=== PATIENT | male | born 1960 | race Caucasian/White ===

== ENCOUNTER 2019-07-09 10:26 | Inpatient (IN) | payer MEDICARE ==
[2019-07-09] MEDS ORDERED: Naloxone HCl 0.4 mg/ml Vial ONE (10:47)
[2019-07-09] MEDS ORDERED: cloNIDine 0.1 MG TAB ONE (10:47)
[2019-07-09] MEDS ORDERED: Cefepime 1 GM VIAL ONE (10:47)
[2019-07-09 10:48] LABS: Analyzer IN Cardio ER; Base Excess (BEa) -3.1 mEq/L (-2.0 to +3.0); Carboxyhemoglobin (COHb) 0.8 gm% (0.0-3.0); Hemoglobin (Hb) 13.3 g/dL (14.0-18.0); O2 Tension (PaO2) 86.7 mmHg (80.0-100.0); Potassium - ABG Lab 5.65 mmol/L (3.70-5.30); pH, Arterial 7.18 (7.35-7.45)
[2019-07-09 10:49] LABS: CO2 Tension 74.6 mmHg (35.0-45.0); Puncture Site RRA
[2019-07-09 11:05] LABS: #Lymphocytes 0.9 thou/uL (1.20-3.40); #Monocytes 0.6 thou/uL (0.11-0.59); #Neutrophils 11.4 thou/uL (1.40-6.50); %Basophils 0.2 % (0.0-1.0); %Eosinophils 0.3 % (0.0-10.0); %Lymphocytes 6.8 % (21.0-51.0); %Monocytes 4.8 % (0.0-10.0); %Neutrophils 87.8 % (42.0-75.0); Hemoglobin 12.5 g/dL (14.0-18.0); Mean Corpuscular HGB CONC 30.9 g/dL (32.0-36.0); Mean Corpuscular Volume 90.7 fL (78.0-98.0); Mean Platelet Volume 6.8 fL (7.4-10.4); Platelet Count 199 thou/uL (130-400); RBC Distribution Width 14.7 % (11.5-14.5); Red Blood Cell (RBC) Count 4.47 mill/uL (4.70-6.10); White Blood Cell (WBC) Count 12.9 thou/uL (4.8-10.8)
[2019-07-09] MEDS ORDERED: Succinylcholine Chloride 20 MG/ML 10 ml SYRINGE FS ONE (11:18)
[2019-07-09] MEDS ORDERED: Propofol 1,000 MG/100 ML VIAL IV ONE (11:28)
--- NOTE | 2019-07-09 11:31 | RAD ---
XR Chest 1 View Portable HISTORY: Dyspnea COMPARISON: 07/01/2012 FINDINGS: The heart is enlarged. There is elevation the right hemidiaphragm. There is mild infiltrate versus atelectatic changes in the right lung base. There is mild pulmonary vascular congestion. No pneumothoraces or large effusions are seen.
[2019-07-09 11:34] LABS: Amphetamine Detected (NotDetected); Barbiturates Screen Not Detected (NotDetected); Benzodiazepine Screen Not Detected (NotDetected); Cocaine Metabolite Screen Not Detected (NotDetected); Medtox Reader # READER 1; Methadone Not Detected (NotDetected); Methamphetamine Detected (NotDetected); Opiate Screen Not Detected (NotDetected); Oxycodone Screen Not Detected (NotDetected); Phencyclidine (PCP) Not Detected (NotDetected); THC/Cannabinoid Screen Not Detected (NotDetected); Tricyclic Screen Not Detected (NotDetected)
[2019-07-09 11:35] LABS: Medtox Control Line Valid? VALID (VALID)
[2019-07-09] MEDS ORDERED: Sodium Bicarb 50 MEQ/50 ML VIAL ONE (11:37)
[2019-07-09] MEDS ORDERED: Norepinephrine 8 MG/0.9% NS 250 ML ONE (11:41)
[2019-07-09 11:42] LABS: ALT (SGPT) 1527 U/L (8-55); AST (SGOT) 1657 U/L (5-34); Acetaminophen Less than 6.0 mcg/mL (10.0-30.0); Albumin 3.4 g/dL (3.5-5.0); Alcohol Less than 10 mg/dL (Less than 10); Alkaline Phosphatase 124 U/L (40-110); Anion Gap 21 mmol/L (10-20); BUN (Urea Nitrogen) 29 mg/dL (8.4-25.7); Bilirubin, Total 0.8 mg/dL (0.2-1.2); CK (CPK) 313 U/L (30-200); Calc. Creatinine Clearance 0 mL/min (70-130); Carbon Dioxide 22 mmol/L (22-29); Chloride 97 mmol/L (98-107); Estimated GFR-MDRD 46; Globulin 4.8 g/dL (2.4-3.5); Glucose 76 mg/dL (70-105); Magnesium 2.4 mg/dL (1.6-2.6); Potassium 5.9 mmol/L (3.5-5.1); Protein, Total 8.2 g/dL (6.0-8.3); Salicylate Less than 8.0 mg/dL (15.0-30.0); Sodium 134 mmol/L (136-145)
[2019-07-09] MEDS ORDERED: Calcium Chloride 1 GM/10 ML Abboject SYRINGE ONE (11:51)
[2019-07-09 11:53] LABS: Bacteria/HPF 4+ HPF (None Seen); Bilirubin Negative (Negative); Blood, Urine 2+ (Negative); Clarity Extra Turbid (Clear); Glucose, Urine (Dipstick) Normal (Negative); Leukocyte 75 Leu/uL (Negative); Nitrite Negative (Negative); Protein, Urine (Dipstick) 100 mg/dL (Neg-Trace); Squamous Epithelial 0-3 HPF (0-3); WBC/HPF 21-50 HPF (0-3)
[2019-07-09 11:56] LABS: CKMB 2.5 ng/mL (0-6.6)
[2019-07-09 12:16] LABS: Actual Bicarbonate (HCO3a) 27.4 mEq/L (22-28); Analyzer IN Cardio ER; Base Excess (BEa) -0.6 mEq/L (-2.0 to +3.0); Calcium, Ionized 1.02 mmol/L (1.12-1.30); Carboxyhemoglobin (COHb) 0.4 gm% (0.0-3.0); Hemoglobin (Hb) 12.4 g/dL (14.0-18.0); O2 Tension (PaO2) 81.2 mmHg (80.0-100.0); Potassium - ABG Lab 5.23 mmol/L (3.70-5.30); pH, Arterial 7.27 (7.35-7.45)
[2019-07-09 12:22] LABS: CO2 Tension 60.9 mmHg (35.0-45.0)
[2019-07-09 12:23] LABS: Puncture Site RRA
[2019-07-09 12:24] LABS: ALV-art Gradient 413.075 (0-20)
--- NOTE | 2019-07-09 12:48 | RAD ---
EXAM: Single view of the chest HISTORY: Chest pain and shortness of breath COMPARISON: 07/09/2019 FINDINGS: Single view of the chest shows a normal sized cardiomediastinal silhouette. An endotrachea l tube is seen with its tip just below the lower border of the clavicles. There may also be an NG tube and a left IJ central venous catheter. These are difficult to visualize. Bilateral perihilar opa cities are seen. The bones are unremarkable. IMPRESSION: Stable exam status post intubation.
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
[2019-07-09] MEDS ORDERED: Ventilator Sedation Protocol 1 EACH FS SCH ×2 (13:30→13:45)
[2019-07-09] MEDS ORDERED: Morphine 2 MG/ML SYRINGE SLOW IVP PRN (13:53)
[2019-07-09] MEDS ORDERED: Lorazepam 2 MG/ML VIAL ONE (13:53)
[2019-07-09] MEDS ORDERED: Propofol BOLUS 1,000 MG/100 ML VIAL IV PRN (13:53)
[2019-07-09] MEDS ORDERED: Lorazepam 2 MG/ML VIAL SLOW IVP PRN (13:53)
[2019-07-09] MEDS ORDERED: Fentanyl BOLUS 250 ML IVPB PRN (13:53)
[2019-07-09] MEDS: Piperacillin/Tazobactam 3.375 GM in Sodium Chloride 0.9% 100 ML IVPB SCH ×2 (14:25→19:55)
--- NOTE | 2019-07-09 14:36 | PDOC.HHP ---
Hospitalist HPI - History of Present Illness AMS History of Present Illness: Mr. Reyes is a 59 y/o gentleman with PMH of morbid obesity, unknown other medical history, who presents with altered mental status and respiratory distress. The majority of the history was obtained from the medical personnel and the chart. Apparently was placed on CPAP in the ambulance due to respiratory distress. By the time he arrived in the emergency room his Alyson Coma Scale was reportedly a 4, he had a ABG which demonstrated pH of 7.18 PCO2 of 74.6 PO2 of 86.7 and lactic acid of 5.2. Patient was initially placed on BiPAP but failed response to therapy with continued tachypnea, was intubated and mechanically ventilated. Patient is reportedly over 500 pounds and unable to fit in CT scanner, a chest x-ray was obtained which demonstrated a infiltrate in the right lung base. Additionally had elevated AST of 1657 and ALT of 1527 and ALP of 124. Troponin on admission was 1.195. Hospitalist ROS - Review of Systems ROS unobtainable: due to endotracheal tube - Medication Medications: Medication Instructions Recorded Confirmed Type Benazepril HCl [Lotensin] 10 mg PO DAILY 10/05/17 History Cyanocobalamin (Vitamin B-12) 1,000 mcg PO DAILY 10/05/17 History [Vitamin B-12] Furosemide [Lasix] 20 mg PO DAILY 10/05/17 History Potassium Gluconate [Potassium] 99 mg PO DAILY 10/05/17 History Hospitalist History - Past Medical History Source: RN notes reviewed Cardiac: reports: no pertinent history Pulmonary: reports: no pertinent history, Other TREASURY AGENT: reports: no pertinent history Gastrointestinal: reports: no pertinent history Heme/Onc: reports: no pertinent history, Anemia NOS Musculoskeletal: reports: no pertinent history Rheumatologic: reports: no pertinent history Infectious Disease: reports: no pertinent history ENT: reports: no pertinent history Renal/: reports: no pertinent history - Past Surgical History Past Surgical History: reports: no pertinent history - Family History Family History: reports: no pertinent history - Social History Smoking Status: Smoker, status unknown Alcohol: reports: None Drugs: reports: Other Living Situation: Alone Other Social History: Unknown social history - Exam General - other findings: Intubated, sedated Eye: PERRL, anicteric sclera ENT: normocephalic atraumatic Neck: supple, no JVD, no lymphadenopathy Heart: RRR, no murmur, no gallops Respiratory: no wheezes, normal chest expansion, rhonchi Gastrointestinal: soft, non-tender, normal bowel sounds Gastrointestinal - other findings: Massive abdomen, protuberant Extremities: no cyanosis, no clubbing Skin - other findings: ulcer on right posterior aspect of inner thigh, 3cm by 3cm, sacral ulcer Musculoskeletal: no muscle wasting, generalized weakness Psychiatric: not oriented Hospitalist Results - Labs Result Diagrams: 07/09/19 10:49 07/09/19 20:05 Lab results: WBC 12.9 thou/uL (4.8-10.8) H 07/09/19 10:49 Hgb 12.5 g/dL (14.0-18.0) L 07/09/19 10:49 Hct 40.6 % (42.0-52.0) L 07/09/19 10:49 MCV 90.7 fL (78.0-98.0) 07/09/19 10:49 Plt Count 199 thou/uL (130-400) 07/09/19 10:49 Neutrophils % 87.8 % (42.0-75.0) H 07/09/19 10:49 ABG pH 7.27 (7.35-7.45) L 07/09/19 12:10 ABG pCO2 60.9 mmHg (35.0-45.0) H* 07/09/19 12:10 ABG pO2 81.2 mmHg (80.0-100.0) 07/09/19 12:10 Sodium 134 mmol/L (136-145) L 07/09/19 10:49 Potassium 5.9 mmol/L (3.5-5.1) H 07/09/19 10:49 Chloride 97 mmol/L (98-107) L 07/09/19 10:49 Carbon Dioxide 22 mmol/L (22-29) 07/09/19 10:49 BUN 29 mg/dL (8.4-25.7) H 07/09/19 10:49 Creatinine 1.55 mg/dL (0.7-1.3) H 07/09/19 10:49 Glucose 76 mg/dL (70-105) 07/09/19 10:49 Lactic Acid 5.2 mmol/L (0.5-2.2) H* 07/09/19 10:49 Calcium 8.0 mg/dL (7.8-10.44) 07/09/19 10:49 Total Bilirubin 0.8 mg/dL (0.2-1.2) 07/09/19 10:49 AST 1657 U/L (5-34) H 07/09/19 10:49 ALT 1527 U/L (8-55) H 07/09/19 10:49 Alkaline Phosphatase 124 U/L (40-110) H 07/09/19 10:49 Creatine Kinase 313 U/L (30-200) H 07/09/19 10:49 CK-MB (CK-2) 2.5 ng/mL (0-6.6) 07/09/19 10:49 Troponin I 0.195 ng/mL (< 0.028) H 07/09/19 10:49 B-Natriuretic Peptide 87.8 pg/mL (0-100) 07/09/19 10:49 Serum Total Protein 8.2 g/dL (6.0-8.3) 07/09/19 10:49 Albumin 3.4 g/dL (3.5-5.0) L 07/09/19 10:49 Urine Ketones Negative mg/dL (Negative) 07/09/19 11:01 Urine Blood 2+ (Negative) A 07/09/19 11: Urine Nitrite Negative (Negative) 07/09/19 11:01 Ur Leukocyte Esterase 75 Yolette/uL (Negative) A 07/09/19 11:01 Urine RBC 7-10 HPF (0-3) A 07/09/19 11:01 Urine WBC 21-50 HPF (0-3) A 07/09/19 11:01 Ur Squamous Epith Cells 0-3 HPF (0-3) 07/09/19 11:01 Urine Bacteria 4+ HPF (None Seen) A 07/09/19 11:01 Additional comment: VITAL SIGNS MonJul 09, 2019 10:36 LINUS Proctor Morgan BP: 178/113, MAP: 134, Pulse: 91, Resp: 25, Pain: UTD, Time: 07/09/2019 10:36. - EKG Interpretation EK lead EKG shows normal sinus rhythm, Rate (beats per minute): 91, Interpretation: normal EKG, Conduction normal, ST segments normal, T waves normal, Rowland normal, Clinical impression: Normal EKG. - Radiology Interpretation Chest x-ray Status: report reviewed by me Hospitalist H&P A/P - Problem (1) Acute respiratory failure with hypoxia and hypercapnia Code(s): J96.01 - ACUTE RESPIRATORY FAILURE WITH HYPOXIA; J96.02 - ACUTE RESPIRATORY FAILURE WITH HYPERCAPNIA Status: Acute (2) Severe sepsis with septic shock Code(s): A41.9 - SEPSIS, UNSPECIFIED ORGANISM; R65.21 - SEVERE SEPSIS WITH SEPTIC SHOCK Status: Acute (3) Community acquired pneumonia Code(s): J18.9 - PNEUMONIA, UNSPECIFIED ORGANISM Status: Acute (4) Transaminitis Code(s): R74.0 - NONSPEC ELEV OF LEVELS OF TRANSAMNS & LACTIC ACID DEHYDRGNSE Status: Acute (5) Lactic acidosis Code(s): E87.2 - ACIDOSIS Status: Acute (6) Positive urine drug screen Code(s): R82.5 - ELEVATED URINE LEVELS OF DRUG/MEDS/BIOL SUBST Status: Acute (7) Acute kidney injury Code(s): N17.9 - ACUTE KIDNEY FAILURE, UNSPECIFIED Status: Acute - Plan Plan: Admit to CCU for further management of critical care Consult pulmonary for management vent management Vent sedation protocol initiated, continue sedation with propofol Work-up of septic shock, receicev early goal directed therapy of 3L bolus, patient unable to fit in CT scanner, will obtain a ultrasound of the abdomen as well as HIDA scan, and a soft tissue scan of a wound on the right leg Consult wound care Empiric vancomycin and Zosyn, obtain an echocardiogram for evaluation of shock, obtain cultures Continue NS at 100 mL/h, fluid challenge for RODNEY Continue Levophed Likely source of sepsis could be a pneumonia, however given elevated liver enzymes and prior gallbladder sludge noted on ultrasound report from a month ago , would like to evaluate the gallbladder, and soft tissue area on the leg which could be an abscess. DVT prophylaxis: Lovenox GI prophylaxis: Protonix CODE STATUS: Full code ACP: Unknown surrogate details, there is a [id number] but he was unavailable at the time Disposition: Continue treatment and management of shock, sepsis, respiratory failure. Critical care time spent with the patient greater than 45 minutes in management and planning of patient's critical illness
[2019-07-09 14:54] LABS: Lactic Acid 5.4 mmol/L (0.5-2.2)
[2019-07-09] MEDS: Propofol 1,000 MG/100 ML VIAL IV PRN ×2 (14:55→19:30)
[2019-07-09] MEDS: fentaNYL Citrate/PF 2,000 MCG in Sodium Chloride 0.9% 60 ML IV SCH (14:56)
[2019-07-09] MEDS: Sodium Chloride 0.9% 1,000 ML IV SCH ×2 (15:17→23:28)
--- NOTE | 2019-07-09 16:40 | ULT ---
EXAM: US Soft Tissue Other PROVIDED CLINICAL HISTORY: Posterior right leg ulcer, rule out abscess. COMPARISON: None FINDINGS: Limited sonographic evaluation of the left lower gluteal region was performed which is in region of p atient's wound. The provided history indicates that the area of ulceration is on the posterior right leg. However, the area of erythema is noted on the lower left gluteal region, this was the area which was imaged. There is no fluid collection or mass seen in region of concern in the subcutaneous soft tissues left lower gluteal region. A tubular anechoic structure is seen likely rela fei to a vessel. However, color-flow evaluation was not performed primarily related to difficulty in patient remaining in position for evaluation. IMPRESSION: No fluid collection or mass is seen in the region of the patient's area of concern at the level of ar ea of erythema posterior left gluteal region. Again, history indicates right, but area of concern was noted to be on the left according to team facilitator.
--- NOTE | 2019-07-09 16:44 | ULT ---
ABDOMINAL ULTRASOUND HISTORY: Abdominal pain. FINDINGS: Liver: Enlarged in craniocaudal dimensions measuring 19.7 cm. Portions of the liver are not well imag ed due to patient body habitus. No obvious hepatic lesion is seen on provided images. Gallbladder: Limited evaluation, but no definite gallbladder calculus is seen. Common duct: Common duct is normal in caliber measuring 0.4 cm in diameter. Pancreas: The limited visualized pancreas demonstrates a normal sonographic appearance. IVC: Limited visualized IVC has a normal sonographic appearance. Aorta: Portions of the abdominal aorta are not visualized, the visualized portions of the abdominal a frederic are normal in caliber. Spleen: Within normal limits. Kidneys: Limited evaluation, but the kidneys demonstrate a grossly normal sonographic appearance bila terally without evidence of hydronephrosis. The right kidney measures 12.8 cm in length, and the left kidney measures 11.3 cm in length. IMPRESSION: 1. Portions of the abdominal organs are not well seen due to difficulty in imaging, but no definite a cute abnormality is visualized. 2. Limited evaluation of the gallbladder, but no definite gallbladder calculus is seen, and there is no gallbladder wall thickening. Common duct is normal in caliber. 3. Enlargement of liver in craniocaudal dimensions.
[2019-07-09] MEDS ORDERED: Sodium Chloride 0.9% 1,000 ML IV SCH (17:00)
[2019-07-09 18:11] LABS: Legionella Urinary Ag Negative (Negative); Strep pneumo Urine Ag NEGATIVE (NEGATIVE)
[2019-07-09] MEDS: Norepinephrine 8 MG/0.9% NS 250 ML IVPB SCH (19:00)
[2019-07-09 20:35] LABS: Lactic Acid 2.4 mmol/L (0.5-2.2)
[2019-07-09 20:37] LABS: Anion Gap 18 mmol/L (10-20); BUN (Urea Nitrogen) 41 mg/dL (8.4-25.7); Calc. Creatinine Clearance 149 mL/min (70-130); Calcium 7.6 mg/dL (7.8-10.44); Carbon Dioxide 23 mmol/L (22-29); Chloride 100 mmol/L (98-107); Estimated GFR-MDRD 39; Glucose 86 mg/dL (70-105); Potassium 4.7 mmol/L (3.5-5.1); Sodium 136 mmol/L (136-145)
[2019-07-09] MEDS ORDERED: Acetaminophen 650 MG Suppository PR PRN (23:50)
[2019-07-09] MEDS ORDERED: Acetaminophen/Codeine Oral Solution PO PRN (23:51)
[2019-07-10 00:21] LABS: Lactic Acid 1.7 mmol/L (0.5-2.2)
[2019-07-10] MEDS: Propofol 1,000 MG/100 ML VIAL IV PRN ×6 (00:55→21:58)
[2019-07-10] MEDS: Piperacillin/Tazobactam 3.375 GM in Sodium Chloride 0.9% 100 ML IVPB SCH ×2 (01:38→18:22)
[2019-07-10] MEDS: fentaNYL Citrate/PF 2,000 MCG in Sodium Chloride 0.9% 60 ML IV SCH ×2 (02:10→14:58)
[2019-07-10 04:36] LABS: Band 6 % (5-11); Hemoglobin 11.2 g/dL (14.0-18.0); Hypochromia SLIGHT = 6-15 cells (100X) (0-5/hpf); Lymphocytes 21 % (21-51); MDiff Complete? YES; Mean Corpuscular HGB CONC 32.6 g/dL (32.0-36.0); Mean Corpuscular Hemoglobin 28.2 pg (27.0-31.0); Mean Corpuscular Volume 86.7 fL (78.0-98.0); Monocytes 1 % (0-10); Neutrophil 72 % (42-75); Platelet Count 166 thou/uL (130-400); Platelet Morphology Comment Appears Adequate; RBC Distribution Width 14.8 % (11.5-14.5); Red Blood Cell (RBC) Count 3.97 mill/uL (4.70-6.10); White Blood Cell (WBC) Count 9.2 thou/uL (4.8-10.8)
[2019-07-10 04:48] LABS: Albumin 2.6 g/dL (3.5-5.0); Alkaline Phosphatase 99 U/L (40-110); Anion Gap 14 mmol/L (10-20); BUN (Urea Nitrogen) 45 mg/dL (8.4-25.7); Bilirubin, Total 0.7 mg/dL (0.2-1.2); Calc. Creatinine Clearance 131 mL/min (70-130); Calcium 7.3 mg/dL (7.8-10.44); Carbon Dioxide 27 mmol/L (22-29); Chloride 101 mmol/L (98-107); Estimated GFR-MDRD 33; Globulin 3.9 g/dL (2.4-3.5); Glucose 74 mg/dL (70-105); Potassium 3.9 mmol/L (3.5-5.1); Protein, Total 6.5 g/dL (6.0-8.3); Sodium 138 mmol/L (136-145)
[2019-07-10 04:53] LABS: AST (SGOT) Greater than 3500 U/L (5-34); Lactic Acid 1.5 mmol/L (0.5-2.2)
[2019-07-10 05:01] LABS: ALT (SGPT) 4666 U/L (8-55)
--- NOTE | 2019-07-10 07:27 | CON ---
DATE OF CONSULTATION: 07/09/2019 ADDENDUM: To the consultation placed by Marty Castro MD earlier. I saw the patient with Dr. Castro. I have reviewed the history and confirmed physical exam findings independently. I have also reviewed x-rays and laboratory data. In short, this is a 59-year-old male who has had almost no medical care in the past, who presents with acute on chronic hypercapnic and hypoxic respiratory failure with underlying sepsis. After failing BiPAP in the ER, he was endotracheally intubated by the emergency room physician. He had episodic hypotension, which may be related to the drug he received for intubation. He has been placed on Levophed drip. He has been given cefepime and vancomycin while in the emergency room. He is now responding appropriately on mechanical ventilation. PHYSICAL EXAMINATION: GENERAL: Shows an obese male, who is very disheveled in appearance. LUNGS: He has diminished breath sounds bilaterally with diminished heart sounds. He probably weighs over 500 pounds. He has extensive edema in both extremities. LABORATORY DATA: His ABG shows a pH 7.27, pCO2 of 60, pO2 of 81 after intubation. His white blood cell count 12.9, hematocrit 40, and platelet count 199. Sodium 134, potassium 5.9, chloride 97, CO2 of 22, BUN 29, creatinine 1.5, glucose 76. AST 1657 and ALT 1527. His chest x-ray shows cardiomegaly with perhaps interstitial infiltrate on the right. ASSESSMENT: 1. The patient is presenting with acute on chronic respiratory failure. Additionally, he has sepsis. 2. Elevated liver function tests either indicative of underlying hepatitis (he has chronic hepatitis C) or more likely due to shock liver from hypotension. 3. Morbid obesity. 4. Probable obstructive sleep apnea. 5. Illicit drug abuse with methamphetamine. PLAN: The patient will be kept intubated. Broad-spectrum IV antibiotics have been started. He will be kept on mechanical ventilation for the time being. We will have to consider a possible tracheostomy later if he is difficult to wean from mechanical ventilation. I have spoken with his brother, who was the closest family member available at the time that the patient was in the ER. Job ID: [id number]
[2019-07-10 07:38] LABS: Actual Bicarbonate (HCO3a) 26.3 mEq/L (22-28); Base Excess (BEa) 2.7 mEq/L (-2.0 to +3.0); CO2 Tension 36.9 mmHg (35.0-45.0); Hemoglobin (Hb) 12.3 g/dL (14.0-18.0); Potassium - ABG Lab 3.63 mmol/L (3.70-5.30); pH, Arterial 7.47 (7.35-7.45)
[2019-07-10 07:39] LABS: ALV-art Gradient 251.775 (0-20); O2 Tension (PaO2) 58.6 mmHg (80.0-100.0); Puncture Site RR
--- NOTE | 2019-07-10 08:19 | RAD ---
PORTABLE SEMIUPRIGHT FRONTAL CHEST RADIOGRAPH: DATE: 07/10/2019. COMPARISON: 07/09/2019. HISTORY: Pneumonia. FINDINGS: Stable endotracheal tube and nasogastric tube. There is nonspecific dense airspace disease in bilate ral perihilar regions and the medial right lung base. There is also dense opacity of the medial left base. Findings may be on the basis of infectious pneumonitis, aspiration, or pulmonary edema. Left -sided vascular catheter in place. IMPRESSION: Lines and tubes as detailed above. Nonspecific bilateral pulmonary parenchymal opacities for which f ollowup imaging is advised. POS: NIC
--- NOTE | 2019-07-10 08:32 | PRG ---
DATE OF SERVICE: 07/10/2019 TIME SPENT: This is 35 minutes of critical care time. SUBJECTIVE: The patient remains intubated on mechanical ventilation. He will wake up when sedation is lessened. OBJECTIVE: VITAL SIGNS: On exam, his temperature is 99.2 with a T-max of 100.5, pulse 69, and blood pressure 116/57. A 24-hour intake 4470, output 1665. HEENT: ET tube in place. NECK: No JVD. LUNGS: Coarse rhonchi. CARDIOVASCULAR: S1 and S2. Regular. ABDOMEN: Morbidly obese, soft. EXTREMITIES: Edematous. LABORATORY DATA: Sodium 138, potassium 3.9, chloride 101, CO2 of 27, BUN 45, creatinine 2.1, glucose 74, AST 3500, ALT 4666, and albumin 2.6. Lactate is down to 1.5. Procalcitonin 0.88. PH of 7.47, pCO2 of 37, pO2 of 58, on SIMV rate 24, tidal volume 550, PEEP of 7, pressure support 10, and FiO2 of 50%. White blood cell count 9.2, hematocrit 34.4, and platelet count 166. IMAGING DATA: X-ray shows diffuse bilateral pulmonary infiltrates, right greater than left. Cultures show no growth to date. His rapid flu test was negative. However, his PCR test was positive for type A flu. ASSESSMENT: 1. Acute respiratory failure, requiring mechanical ventilation. 2. Bilateral pneumonia. 3. Transaminitis. 4. Morbid obesity. 5. History of hepatitis C. 6. Probable obstructive sleep apnea. 7. Methamphetamine abuse. PLAN: 1. The patient needs to remain on mechanical ventilation. He will continue broad-spectrum IV antibiotics, but I will adjust this for his adverse renal function. 2. Decrease Lovenox dose. 3. Initiate tube feeds. 4. Tamiflu. Job ID: [id number]
[2019-07-10] MEDS ORDERED: Enoxaparin Sodium 40 MG/0.4 ML SYRINGE SC SCH ×2 (09:00)
[2019-07-10] MEDS: Pantoprazole 40 MG VIAL IVP SCH (09:03)
[2019-07-10] MEDS ORDERED: Enoxaparin Sodium 30 MG/0.3 ML SYRINGE SC SCH (09:45)
[2019-07-10] MEDS: Oseltamivir 6 MG/ML ORAL SUSP PO SCH ×2 (11:05→21:56)
[2019-07-10] MEDS: Piperacillin/Tazobactam 2.25 GM in Sodium Chloride 0.9% 100 ML IVPB SCH ×2 (11:05→17:41)
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
--- NOTE | 2019-07-10 12:36 | CON ---
DATE OF CONSULTATION: REASON FOR CONSULTATION: Elevated creatinine. HISTORY OF PRESENT ILLNESS: This is a very pleasant 59-year-old gentleman, admitted on July 09, with a baseline creatinine of 1.55, on July 09, this has increased to 2.07. The patient has a history of COPD, went into respiratory failure and septic with low blood pressure, started on pressors, and his creatinine has increased up to 2. The patient can give no further history. The patient is being treated for sepsis with pressors, and overall remains stable. All records have been reviewed. PAST MEDICAL HISTORY: Significant for hypertension, obstructive sleep apnea, tobacco abuse, morbid obesity, venous ulcers, chronic brawny edema, history of drug use, hepatitis C. PAST SURGICAL HISTORY: Unobtainable. SOCIAL HISTORY: Smoker and drug use. ALLERGIES: REVIEWED. MEDICATIONS: Home medication list reviewed. Hospital medication list reviewed. REVIEW OF SYSTEMS: Unobtainable. PHYSICAL EXAMINATION: GENERAL: The patient is resting. VITAL SIGNS: Afebrile, pulse 75, breathing 16, blood pressure 123/65. GENERAL APPEARANCE AND MENTAL STATUS: Fair. HEAD/NECK: Normocephalic. Atraumatic. EYES: EOMI. No deformity. EARS: Clear. No ulcers. NOSE: Intact. No lesions. MOUTH: Clear. No discharge. THROAT: Clear. No exudate. LUNGS: Clear. No crackles. CARDIAC: S1, S2. No rub. ABDOMEN: Benign. Bowel sounds positive. GENITALIA/RECTUM: The patient has a Snyder catheter. BACK/EXTREMITIES: Edema 0+. NEUROLOGICAL: The patient is resting. LABORATORY DATA: Creatinine 2.0. Urine shows protein positive. ASSESSMENT AND RECOMMENDATIONS: 1. Acute kidney injury, most likely because of sepsis, cytokine mediated. No indication for dialysis. I will order renal imaging. 2. Hypertension. The patient remains on pressors due to low blood pressure, stable. 3. Proteinuria. I will quantitate the protein in his urine. 4. Hypocalcemia. Would recommend getting calcium supplementation. 5. Sepsis. 6. Multiorgan failure. Overall prognosis is poor. No urgent indication for dialysis. No family member was available for family consultation. Job ID: [id number]
[2019-07-10 12:38] LABS: Lactic Acid 1.1 mmol/L (0.5-2.2)
[2019-07-10] MEDS: Sodium Chloride 0.9% 1,000 ML IV SCH (17:43)
[2019-07-10 18:17] LABS: Lactic Acid 1.3 mmol/L (0.5-2.2)
[2019-07-10 22:40] LABS: Vancomycin, Trough 13.8 ug/mL
[2019-07-11 00:40] LABS: Lactic Acid 1.2 mmol/L (0.5-2.2)
[2019-07-11] MEDS: Piperacillin/Tazobactam 2.25 GM in Sodium Chloride 0.9% 100 ML IVPB SCH ×3 (02:16→18:41)
[2019-07-11] MEDS: Norepinephrine 8 MG/0.9% NS 250 ML IVPB SCH (02:19)
[2019-07-11] MEDS: fentaNYL Citrate/PF 2,000 MCG in Sodium Chloride 0.9% 60 ML IV SCH ×2 (03:06→14:54)
[2019-07-11 04:07] LABS: Hemoglobin 12.6 g/dL (14.0-18.0); Lymphocytes 11 % (21-51); MDiff Complete? YES; Mean Corpuscular HGB CONC 30.9 g/dL (32.0-36.0); Mean Corpuscular Hemoglobin 27.7 pg (27.0-31.0); Mean Corpuscular Volume 89.7 fL (78.0-98.0); Mean Platelet Volume 6.9 fL (7.4-10.4); Monocytes 1 % (0-10); Neutrophil 88 % (42-75); Platelet Count 180 thou/uL (130-400); Platelet Morphology Comment Appears Adequate; RBC Distribution Width 15.2 % (11.5-14.5); Red Blood Cell (RBC) Count 4.53 mill/uL (4.70-6.10)
[2019-07-11 04:20] LABS: Albumin 2.5 g/dL (3.5-5.0); Alkaline Phosphatase 113 U/L (40-110); Anion Gap 12 mmol/L (10-20); BUN (Urea Nitrogen) 42 mg/dL (8.4-25.7); Bilirubin, Total 0.9 mg/dL (0.2-1.2); Calc. Creatinine Clearance 147 mL/min (70-130); Calcium 7.6 mg/dL (7.8-10.44); Carbon Dioxide 27 mmol/L (22-29); Chloride 104 mmol/L (98-107); Estimated GFR-MDRD 38; Globulin 4.2 g/dL (2.4-3.5); Glucose 69 mg/dL (70-105); Potassium 3.7 mmol/L (3.5-5.1); Protein, Total 6.7 g/dL (6.0-8.3); Sodium 139 mmol/L (136-145)
[2019-07-11 04:25] LABS: Lactic Acid 1.2 mmol/L (0.5-2.2)
[2019-07-11 04:28] LABS: AST (SGOT) Greater than 3500 U/L (5-34)
[2019-07-11 04:33] LABS: ALT (SGPT) 4395 U/L (8-55)
[2019-07-11] MEDS: Propofol 1,000 MG/100 ML VIAL IV PRN ×4 (05:07→20:41)
[2019-07-11] MEDS: Sodium Chloride 0.9% 1,000 ML IV SCH ×2 (05:08→18:43)
[2019-07-11 07:47] LABS: Actual Bicarbonate (HCO3a) 26.8 mEq/L (22-28); Analyzer IN Cardio ER; Base Excess (BEa) 0.9 mEq/L (-2.0 to +3.0); CO2 Tension 47.2 mmHg (35.0-45.0); Calcium, Ionized 1.06 mmol/L (1.12-1.30); Carboxyhemoglobin (COHb) 0.5 gm% (0.0-3.0); O2 Tension (PaO2) 73.7 mmHg (80.0-100.0); Potassium - ABG Lab 3.65 mmol/L (3.70-5.30); pH, Arterial 7.37 (7.35-7.45)
[2019-07-11 07:48] LABS: Puncture Site RRA
--- NOTE | 2019-07-11 08:20 | RAD ---
SINGLE VIEW OF THE CHEST: COMPARISON: 07/10/2019. HISTORY: Respiratory failure and pneumonia. FINDINGS: A single view of the chest shows an enlarged but stable cardiomediastinal silhouette. The lines and tubes are unchanged in position. There is obscurity of the left hemidiaphragm which may represent a small left pleural effusion and/or adjacent atelectasis. IMPRESSION: Stable exam. POS: [facility]
[2019-07-11] MEDS: Enoxaparin Sodium 30 MG/0.3 ML SYRINGE SC SCH (08:44)
[2019-07-11] MEDS: Oseltamivir 6 MG/ML ORAL SUSP PO SCH ×2 (08:45→20:41)
[2019-07-11] MEDS: Pantoprazole 40 MG VIAL IVP SCH (08:45)
--- NOTE | 2019-07-11 09:16 | PRG ---
DATE OF SERVICE: 07/11/2019 TIME SPENT: 35 minutes of critical care time. SUBJECTIVE: The patient remains intubated on mechanical ventilation. There have been no acute changes overnight other than he has been weaned off the Levophed drip. OBJECTIVE: VITAL SIGNS: Temperature 98.2, pulse 63, blood pressure 119/69, O2 saturation 97%. Intake 2887, output 4110. GENERAL: He appears disheveled. HEENT: Unremarkable. NECK: No adenopathy or JVD. LUNGS: Coarse rhonchi. CARDIOVASCULAR: S1 and S2, regular. ABDOMEN: Obese, soft. EXTREMITIES: Edematous. IMAGING STUDIES: His chest x-ray continues to show bilateral infiltrative changes. His right diaphragm is more clear, but I cannot see his left diaphragm. Endotracheal tube is in good position. Central line is in good position. LABORATORY DATA: White blood cell count 9, hematocrit 40, and platelet count 180. PH of 7.37, pCO2 of 47, pO2 of 73 on SIMV rate 24, tidal volume 500, PEEP 7, pressure support 10, and FiO2 of 50%. Sodium 139, potassium 3.7, chloride 104, CO2 of 27, BUN 42, creatinine 1.8, glucose 69, AST 3500, and ALT 4395. ASSESSMENT: 1. Acute respiratory failure, requiring mechanical ventilation. 2. Acute kidney injury. 3. Bilateral pneumonia. 4. Transaminitis. 5. History of hepatitis C. 6. Methamphetamine abuse. 7. Possible obstructive sleep apnea. PLAN: 1. He is not weanable at this time. 2. Continue IV antibiotics. 3. Start tube feeds, continue Tamiflu. 4. Okay to give tube feeds while the patient is on low-dose Levophed if needed. 5. Go ahead and stop his IV fluids. Job ID: [id number]
--- NOTE | 2019-07-11 10:52 | PDOC.HOSPP ---
- Subjective Encounter Date: 07/11/19 Encounter Time: 10:51 Subjective: Mr. Reyes was seen today in follow-up of respiratory failure. He is intubated , no changes. - Objective Vital Signs & Weight: Vital Signs (12 hours) Temp Pulse Resp BP Pulse Ox 07/11/19 10:11 63 111/64 07/11/19 08:00 98.2 F 24 H 97 07/11/19 07:27 62 114/58 L 07/11/19 06:00 24 H 07/11/19 04:00 99 F 24 H 96 07/11/19 02:13 70 128/69 07/11/19 02:00 24 H 07/11/19 01:00 98.7 F 07/11/19 00:00 24 H 93 L Weight Admit Weight 523 lb 2.5 oz Weight 526 lb 3.894 oz Most Recent Monitor Data Heart Rate from ECG 64 NIBP 111/69 NIBP BP-Mean 83 Respiration from ECG 24 SpO2 99 I&O: 07/10/19 07/11/19 07/12/19 06:59 06:59 06:59 Intake Total 4470.1 2887.6 Output Total 1665 4110 295 Balance 2805.1 -1222.4 -295 Result Diagrams: 07/11/19 03:30 07/11/19 03:30 Hospitalist ROS - Medication Medications: Active Medications Generic Name Dose Route Start Last Admin Trade Name Freq PRN Reason Stop Dose Admin Enoxaparin Sodium 30 mg 07/11/19 09:00 07/11/19 08:44 Lovenox SC 30 mg 0900 MOHAN Administration Fentanyl Citrate 2,000 mcg/ 100 mls @ 0 mls/hr 07/09/19 13:53 07/11/19 03:06 Sodium Chloride IV 08/08/19 13:53 100 mls INF MOHAN Administration Protocol Per Protocol Norepinephrine Bitartrate 250 mls @ 0 mls/hr 07/09/19 22:51 07/11/19 02:19 Levophed IVPB 250 mls INF MOHAN Administration Protocol Titrate Piperacillin Sod/Tazobactam 100 mls @ 200 mls/hr 07/10/19 10:00 07/11/19 02: 16 Sod 2.25 gm/ Sodium Chloride IVPB 100 mls 0200,1000,1800 MOHAN Administration Lorazepam 2 mg 07/09/19 13:53 07/09/19 19:39 Ativan SLOW IVP 08/08/19 13:53 2 mg Q1H PRN Administration Breakthrough agitation Oseltamivir Phosphate 75 mg 07/10/19 09:00 07/11/19 08:45 Tamiflu PO 75 mg BID MOHAN Administration Pantoprazole Sodium 40 mg 07/10/19 09:00 07/11/19 08:45 Protonix IVP 40 mg DAILY MOHAN Administration Propofol 1,000 mg 07/09/19 13:53 07/11/19 09:16 Diprivan IV 08/08/19 13:53 1,000 mg INF PRN Administration TO ACHIEVE GOAL RASS Protocol Sodium Chloride 10 ml 07/10/19 09:00 07/11/19 08:45 Flush - Normal Saline IVF 10 ml Q12HR MOHAN Administration - Exam Eye: PERRL Heart: RRR, no murmur, no gallops, no rubs, normal peripheral pulses Respiratory: rhonchi Gastrointestinal: soft, non-tender, non-distended, normal bowel sounds, no palpable masses, no hepatomegaly Extremities: no cyanosis (+ erythema in both lower extremities,), 1+ LE edema Hosp A/P (1) Acute respiratory failure with hypoxia and hypercapnia Code(s): J96.01 - ACUTE RESPIRATORY FAILURE WITH HYPOXIA; J96.02 - ACUTE RESPIRATORY FAILURE WITH HYPERCAPNIA Status: Acute (2) Influenza A (H1N1) Code(s): J10.1 - FLU DUE TO OTH IDENT INFLUENZA VIRUS W OTH RESP MANIFEST Status: Acute (3) Community acquired pneumonia Code(s): J18.9 - PNEUMONIA, UNSPECIFIED ORGANISM Status: Acute (4) Positive urine drug screen Code(s): R82.5 - ELEVATED URINE LEVELS OF DRUG/MEDS/BIOL SUBST Status: Acute (5) Severe sepsis with septic shock Code(s): A41.9 - SEPSIS, UNSPECIFIED ORGANISM; R65.21 - SEVERE SEPSIS WITH SEPTIC SHOCK Status: Acute (6) Transaminitis Code(s): R74.0 - NONSPEC ELEV OF LEVELS OF TRANSAMNS & LACTIC ACID DEHYDRGNSE Status: Acute (7) Acute kidney injury Code(s): N17.9 - ACUTE KIDNEY FAILURE, UNSPECIFIED Status: Acute - Plan * Acute on chronic respiratory failure due to Influenza A- continue Tamiflu, and continue vent support * PCCM managing * Severe sepsis- from UTI- urine culture is growing Klebsiella, and this is richey- sensitive- will continue the current antibiotics * He has been weaned off Levaphed * Tube feeds will be started for Nutritional support * Acute kidney injury- likely from sepsis- improving * Transaminitis- from shock liver * Morbid Obesity
--- NOTE | 2019-07-11 13:57 | PRG ---
DATE OF SERVICE: 07/11/2019 SUBJECTIVE: A 59-year-old male being seen for acute kidney injury. The patient remains intubated, cannot give no further history. OBJECTIVE: GENERAL: The patient is resting. VITAL SIGNS: Afebrile. Pulse 60, breathing 16, blood pressure 119/66. GENERAL APPEARANCE AND MENTAL STATUS: Fair. HEAD/NECK: Normocephalic. Atraumatic. EYES: EOMI. No deformity. EARS: Clear. No ulcers. NOSE: Intact. No lesions. MOUTH: Clear. No discharge. THROAT: Clear. No exudate. LUNGS: Clear. No crackles. CARDIAC: S1, S2. No rub. ABDOMEN: Benign. Bowel sounds positive. GENITALIA/RECTUM: Snyder absent. BACK/EXTREMITIES: Edema 0+. NEUROLOGICAL: The patient is resting. SKIN: LYMPHATICS: LABORATORY DATA: Lab show creatinine 1.8. IMPRESSION: 1. Acute kidney injury, improved. 2. Hypertension, stable. 3. Anemia, stable. 4. Medication based on GFR appropriate. No indication for dialysis. The patient is non-oliguric. Job ID: [id number]
[2019-07-12] MEDS: Propofol 1,000 MG/100 ML VIAL IV PRN ×6 (01:31→21:42)
[2019-07-12] MEDS: Piperacillin/Tazobactam 2.25 GM in Sodium Chloride 0.9% 100 ML IVPB SCH ×3 (01:31→17:14)
[2019-07-12] MEDS: fentaNYL Citrate/PF 2,000 MCG in Sodium Chloride 0.9% 60 ML IV SCH (02:22)
[2019-07-12 04:48] LABS: ALT (SGPT) 3403 U/L (8-55); AST (SGOT) 3292 U/L (5-34); Albumin 2.5 g/dL (3.5-5.0); Alkaline Phosphatase 120 U/L (40-110); Anion Gap 11 mmol/L (10-20); BUN (Urea Nitrogen) 44 mg/dL (8.4-25.7); Bilirubin, Total 1.2 mg/dL (0.2-1.2); Calc. Creatinine Clearance 146 mL/min (70-130); Calcium 7.6 mg/dL (7.8-10.44); Carbon Dioxide 26 mmol/L (22-29); Chloride 106 mmol/L (98-107); Estimated GFR-MDRD 38; Globulin 4.2 g/dL (2.4-3.5); Glucose 87 mg/dL (70-105); Potassium 3.9 mmol/L (3.5-5.1); Protein, Total 6.7 g/dL (6.0-8.3); Sodium 139 mmol/L (136-145)
[2019-07-12 05:58] LABS: Band 9 % (5-11); Eosinophils 2 % (0-10); Hemoglobin 12.6 g/dL (14.0-18.0); Lymphocytes 15 % (21-51); MDiff Complete? YES; Mean Corpuscular HGB CONC 31.4 g/dL (32.0-36.0); Mean Corpuscular Hemoglobin 28.2 pg (27.0-31.0); Mean Platelet Volume 6.9 fL (7.4-10.4); Monocytes 3 % (0-10); Neutrophil 71 % (42-75); Platelet Count 157 thou/uL (130-400); RBC Distribution Width 15.1 % (11.5-14.5); Red Blood Cell (RBC) Count 4.46 mill/uL (4.70-6.10); White Blood Cell (WBC) Count 6.4 thou/uL (4.8-10.8)
[2019-07-12 06:41] LABS: Actual Bicarbonate (HCO3a) 26.6 mEq/L (22-28); Base Excess (BEa) 0.6 mEq/L (-2.0 to +3.0); CO2 Tension 48.1 mmHg (35.0-45.0); Calcium, Ionized 1.09 mmol/L (1.12-1.30); Carboxyhemoglobin (COHb) 0.3 gm% (0.0-3.0); Hemoglobin (Hb) 12.7 g/dL (14.0-18.0); O2 Tension (PaO2) 88.7 mmHg (80.0-100.0); Potassium - ABG Lab 3.75 mmol/L (3.70-5.30); pH, Arterial 7.36 (7.35-7.45)
[2019-07-12 06:46] LABS: Puncture Site RRAD
[2019-07-12 06:47] LABS: ALV-art Gradient 207.675 (0-20)
--- NOTE | 2019-07-12 08:19 | PRG ---
DATE OF SERVICE: 07/12/2019 TIME SPENT: 35 minutes of critical care time. SUBJECTIVE: The patient remains intubated on mechanical ventilation. He will wake up when the nurses lower his sedation. OBJECTIVE: VITAL SIGNS: On exam, his temperature is 98.3, pulse 59, blood pressure 103/47, and O2 saturation 94%. He is off the Levophed drip. He is tolerating tube feeds. Total intake 2634, output 1875. HEENT: Unremarkable. NECK: No adenopathy or JVD. LUNGS: Clear anteriorly. CARDIOVASCULAR: S1 and S2. Regular. ABDOMEN: Morbidly obese, soft, and nontender. EXTREMITIES: Edematous legs. LABORATORY DATA: Sodium 139, potassium 3.9, chloride 106, CO2 of 26, BUN 44, creatinine 1.8, glucose 87, AST 3292, ALT 3403. ABG; pH of 7.36, pCO2 of 48, pO2 of 88 on SIMV rate 24, tidal volume 500, PEEP 7, pressure support 10, FiO2 of 50%. White blood cell count of 6.4, hematocrit 40, and platelet count 157. Cultures demonstrate Klebsiella pneumonia from the urine, which is sensitive to the Zosyn that he is on. ASSESSMENT: 1. Acute respiratory failure, requiring mechanical ventilation. 2. Morbid obesity. 3. Influenza A. 4. Transaminitis. 5. History of hepatitis C. 6. Methamphetamine abuse. 7. Probable underlying obstructive sleep apnea. 8. Bilateral pneumonia. 9. Acute kidney injury. PLAN: 1. Begin cutting back ventilatory support. I have also asked the nurse to cut back on sedation. 2. Continue antibiotics and Tamiflu. 3. Continue enteral tube feeds. Job ID: [id number]
[2019-07-12] MEDS: Enoxaparin Sodium 30 MG/0.3 ML SYRINGE SC SCH (09:23)
[2019-07-12] MEDS: Oseltamivir 6 MG/ML ORAL SUSP PO SCH ×2 (09:23→21:38)
[2019-07-12] MEDS: Pantoprazole 40 MG GRANULES PACKET PO SCH (09:24)
--- NOTE | 2019-07-12 09:48 | RAD ---
PORTABLE CHEST: COMPARISON: 07/11/2019. HISTORY: Pneumonia. FINDINGS: A single view of the chest shows an enlarged but stable cardiomediastinal silhouette. The lines and tubes are unchanged in position. There is obscurity of the left hemidiaphragm which may represent a pleural effusion. A right perihilar infiltrate may be present. IMPRESSION: Stable exam. POS: [facility]
--- NOTE | 2019-07-12 10:42 | PRG ---
DATE OF SERVICE: 07/12/2019 SUBJECTIVE: A 59-year-old male being seen for acute kidney injury. The patient remains intubated. OBJECTIVE: GENERAL: The patient is resting. VITAL SIGNS: Afebrile. Pulse rate 75, breathing 16, and blood pressure 117/60. GENERAL APPEARANCE AND MENTAL STATUS: Fair. HEAD/NECK: Normocephalic. Atraumatic. EYES: EOMI. No deformity. EARS: Clear. No ulcers. NOSE: Intact. No lesions. MOUTH: Clear. No discharge. THROAT: Clear. No exudate. LUNGS: Clear. No crackles. CARDIAC: S1, S2. No rub. ABDOMEN: Benign. Bowel sounds positive. GENITALIA/RECTUM: Urinary examination shows Snyder present. BACK/EXTREMITIES: Edema 0+. NEUROLOGICAL: The patient is resting. SKIN: LYMPHATICS: LABORATORY DATA: Hemoglobin 12.6 and creatinine 1.8. IMPRESSION: 1. Acute kidney injury with chronic kidney disease stage 3, stable. 2. Hypertension, stable. 3. Hyperkalemia, stable. 4. Medication based on GFR appropriate. 5. No indication for dialysis. Job ID: [id number]
--- NOTE | 2019-07-12 10:53 | PDOC.HOSPP ---
- Subjective Encounter Date: 07/12/19 Encounter Time: 10:51 Subjective: Mr. Reyes was seen today in follow-up of respiratory failure and UTI and sepsis, as well as acute kidney injury. He remain intubated, no significant changes overnight. - Objective Vital Signs & Weight: Vital Signs (12 hours) Temp Pulse Resp BP 07/12/19 10:25 62 07/12/19 08:00 14 07/12/19 07:42 65 07/12/19 07:00 98.4 F 07/12/19 06:00 24 H 07/12/19 05:00 98.3 F 07/12/19 04:00 24 H 07/12/19 02:22 70 143/75 H 07/12/19 02:00 24 H 07/12/19 00:11 69 110/53 L 07/12/19 00:00 98.1 F 24 H Weight Admit Weight 523 lb 2.5 oz Weight 527 lb 12.586 oz Most Recent Monitor Data Heart Rate from ECG 61 NIBP 134/62 NIBP BP-Mean 86 Respiration from ECG 23 SpO2 95 I&O: 07/11/19 07/12/19 07/13/19 06:59 06:59 06:59 Intake Total 2887.6 2634 390 Output Total 4110 1875 235 Balance -1222.4 759 155 Result Diagrams: 07/12/19 04:08 07/12/19 04:08 Hospitalist ROS - Medication Medications: Active Medications Generic Name Dose Route Start Last Admin Trade Name Freq PRN Reason Stop Dose Admin Enoxaparin Sodium 30 mg 07/11/19 09:00 07/12/19 09:23 Lovenox SC 30 mg 0900 MOHAN Administration Fentanyl Citrate 2,000 mcg/ 100 mls @ 0 mls/hr 07/09/19 13:53 07/12/19 02:22 Sodium Chloride IV 08/08/19 13:53 100 mls INF MOHAN Administration Protocol Per Protocol Piperacillin Sod/Tazobactam 100 mls @ 200 mls/hr 07/10/19 10:00 07/12/19 09: 23 Sod 2.25 gm/ Sodium Chloride IVPB 100 mls 0200,1000,1800 MOHAN Administration Lorazepam 2 mg 07/09/19 13:53 07/09/19 19:39 Ativan SLOW IVP 08/08/19 13:53 2 mg Q1H PRN Administration Breakthrough agitation Oseltamivir Phosphate 75 mg 07/10/19 09:00 07/12/19 09:23 Tamiflu PO 75 mg BID MOHAN Administration Pantoprazole Sodium 40 mg 07/12/19 09:00 07/12/19 09:24 Protonix PO 40 mg DAILY MOHAN Administration Propofol 1,000 mg 07/09/19 13:53 07/12/19 10:46 Diprivan IV 08/08/19 13:53 1,000 mg INF PRN Administration TO ACHIEVE GOAL RASS Protocol Sodium Chloride 10 ml 07/10/19 09:00 07/12/19 09:24 Flush - Normal Saline IVF 10 ml Q12HR MOHAN Administration - Exam Eye: PERRL, anicteric sclera Heart: RRR, no murmur, no gallops, no rubs, normal peripheral pulses (+ rhonchi bilaterally) Respiratory: CTAB Gastrointestinal: soft, non-tender, non-distended, normal bowel sounds, no palpable masses, no hepatomegaly Extremities: no cyanosis, no edema, 1+ LE edema (+ erythema and chronic venous stasis changes bilaterally) Hosp A/P (1) Acute respiratory failure with hypoxia and hypercapnia Code(s): J96.01 - ACUTE RESPIRATORY FAILURE WITH HYPOXIA; J96.02 - ACUTE RESPIRATORY FAILURE WITH HYPERCAPNIA Status: Acute (2) Influenza A (H1N1) Code(s): J10.1 - FLU DUE TO OTH IDENT INFLUENZA VIRUS W OTH RESP MANIFEST Status: Acute (3) Community acquired pneumonia Code(s): J18.9 - PNEUMONIA, UNSPECIFIED ORGANISM Status: Acute (4) Positive urine drug screen Code(s): R82.5 - ELEVATED URINE LEVELS OF DRUG/MEDS/BIOL SUBST Status: Acute (5) Severe sepsis with septic shock Code(s): A41.9 - SEPSIS, UNSPECIFIED ORGANISM; R65.21 - SEVERE SEPSIS WITH SEPTIC SHOCK Status: Acute (6) Transaminitis Code(s): R74.0 - NONSPEC ELEV OF LEVELS OF TRANSAMNS & LACTIC ACID DEHYDRGNSE Status: Acute (7) Acute kidney injury Code(s): N17.9 - ACUTE KIDNEY FAILURE, UNSPECIFIED Status: Acute - Plan * Acute on chronic respiratory failure due to Influenza A- continue Tamiflu, and continue vent support * PCCM managing * Severe sepsis- from UTI- urine culture is growing Klebsiella ,richey-sensitive- will continue the current antibiotics * Tube feeds will be started for Nutritional support * Acute kidney injury- had improved, but has now plateaued * Transaminitis- from shock liver * Morbid Obesity
[2019-07-13] MEDS: Propofol 1,000 MG/100 ML VIAL IV PRN ×7 (01:14→17:24)
[2019-07-13] MEDS: Piperacillin/Tazobactam 2.25 GM in Sodium Chloride 0.9% 100 ML IVPB SCH ×3 (01:15→17:23)
[2019-07-13 06:49] LABS: ALT (SGPT) 2391 U/L (8-55); AST (SGOT) 1825 U/L (5-34); Albumin 2.6 g/dL (3.5-5.0); Alkaline Phosphatase 124 U/L (40-110); Anion Gap 12 mmol/L (10-20); BUN (Urea Nitrogen) 51 mg/dL (8.4-25.7); Bilirubin, Total 1.2 mg/dL (0.2-1.2); Calc. Creatinine Clearance 145 mL/min (70-130); Calcium 7.8 mg/dL (7.8-10.44); Carbon Dioxide 29 mmol/L (22-29); Chloride 106 mmol/L (98-107); Estimated GFR-MDRD 37; Globulin 4.3 g/dL (2.4-3.5); Glucose 106 mg/dL (70-105); Potassium 4.3 mmol/L (3.5-5.1); Protein, Total 6.9 g/dL (6.0-8.3); Sodium 143 mmol/L (136-145)
[2019-07-13 07:26] LABS: Actual Bicarbonate (HCO3a) 29.9 mEq/L (22-28); Base Excess (BEa) 1.5 mEq/L (-2.0 to +3.0); Calcium, Ionized 1.12 mmol/L (1.12-1.30); Carboxyhemoglobin (COHb) 1.4 gm% (0.0-3.0); Hemoglobin (Hb) 12.1 g/dL (14.0-18.0); O2 Tension (PaO2) 102.3 mmHg (80.0-100.0); Potassium - ABG Lab 4.15 mmol/L (3.70-5.30); pH, Arterial 7.27 (7.35-7.45)
[2019-07-13 07:31] LABS: ALV-art Gradient 170.575 (0-20); CO2 Tension 66.9 mmHg (35.0-45.0); Puncture Site RRAD
[2019-07-13 07:39] LABS: Band 11 % (5-11); Eosinophils 2 % (0-10); Lymphocytes 18 % (21-51); MDiff Complete? YES; Mean Corpuscular HGB CONC 30.3 g/dL (32.0-36.0); Mean Corpuscular Hemoglobin 28.2 pg (27.0-31.0); Mean Corpuscular Volume 92.9 fL (78.0-98.0); Mean Platelet Volume 7.2 fL (7.4-10.4); Metamyelocyte 1 % (0-0); Monocytes 6 % (0-10); Neutrophil 62 % (42-75); Nucleated RBC 1 % (0); Platelet Count 153 thou/uL (130-400); RBC Distribution Width 15.3 % (11.5-14.5); Red Blood Cell (RBC) Count 4.25 mill/uL (4.70-6.10); White Blood Cell (WBC) Count 5.9 thou/uL (4.8-10.8)
[2019-07-13] MEDS: Enoxaparin Sodium 30 MG/0.3 ML SYRINGE SC SCH (08:21)
[2019-07-13] MEDS: Pantoprazole 40 MG GRANULES PACKET PO SCH (08:21)
[2019-07-13] MEDS: Oseltamivir 6 MG/ML ORAL SUSP PO SCH ×2 (09:47→20:58)
--- NOTE | 2019-07-13 10:58 | RAD ---
PORTABLE SEMIUPRIGHT FRONTAL CHEST RADIOGRAPH: 07/13/2019 HISTORY: Pneumonia. COMPARISON: 07/12/2019 FINDINGS: Endotracheal tube and nasogastric tube in place. Shallow inspiration and body habitus limit detailed assessment. Nonspecific perihilar linear density noted on the right. Increased density is noted in th e left lung base, which may represent left basilar air space disease or volume loss. The cardiac silh ouette appears prominent. Stable left sided vascular catheter. IMPRESSION: 1. No significant interval change. 2. Detailed assessment is limited secondary to shallow inspiration, portable technique and body habit us. POS: [facility]
[2019-07-13] MEDS ORDERED: Sodium Chloride 0.9% 250 ML 250 ML IVPB SCH (11:30)
--- NOTE | 2019-07-13 12:47 | PRG ---
DATE OF SERVICE: 07/13/2019 SUBJECTIVE: A 59-year-old gentleman being seen for acute kidney injury. The patient remains intubated. OBJECTIVE: CONSTITUTIONAL: On exam, the patient is resting. VITAL SIGNS: Afebrile, pulse 75, breathing 16, and blood pressure 139/83. GENERAL APPEARANCE AND MENTAL STATUS: Fair. HEAD/NECK: Normocephalic. Atraumatic. EYES: EOMI. No deformity. EARS: Clear. No ulcers. NOSE: Intact. No lesions. MOUTH: Clear. No discharge. THROAT: Clear. No exudate. LUNGS: Clear. No crackles. CARDIAC: S1, S2. No rub. ABDOMEN: Benign. Bowel sounds positive. GENITALIA/RECTUM: Snyder absent. BACK/EXTREMITIES: Edema 0+. NEUROLOGICAL: Alert and motor intact. SKIN: LYMPHATICS: LABORATORY DATA: Labs show hemoglobin is 12. Creatinine is 1.8. ASSESSMENT AND PLAN: 1. Acute kidney injury with chronic kidney disease, stage 3, stable. 2. Hypertension, stable. 3. Oliguria. We will recommend fluid challenge. Job ID: [id number]
--- NOTE | 2019-07-13 18:02 | PDOC.HOSPP ---
- Subjective Encounter Date: 07/13/19 Encounter Time: 10:45 Subjective: The patient remains intubated. He is awake, seems to respond to pain. He is on low dose propofol - Objective Vital Signs & Weight: Vital Signs (12 hours) Temp Pulse Resp BP Pulse Ox 07/13/19 16:00 16 07/13/19 15:00 97.5 F L 07/13/19 14:55 51 L 07/13/19 14:00 16 07/13/19 13:27 61 162/66 H 07/13/19 12:00 16 07/13/19 11:00 98.4 F 07/13/19 10:51 62 07/13/19 10:00 20 07/13/19 08:05 62 07/13/19 08:00 20 100 07/13/19 07:00 98.3 F Weight Admit Weight 523 lb 2.5 oz Weight 528 lb 0.113 oz Most Recent Monitor Data Heart Rate from ECG 50 NIBP 130/76 NIBP BP-Mean 94 Respiration from ECG 16 SpO2 100 I&O: 07/12/19 07/13/19 07/14/19 06:59 06:59 06:59 Intake Total 2634 2870 1699 Output Total 1875 950 985 Balance 759 1920 714 Result Diagrams: 07/13/19 06:14 07/13/19 06:14 Hospitalist ROS - Review of Systems ROS unobtainable: due to endotracheal tube - Medication Medications: Active Medications Generic Name Dose Route Start Last Admin Trade Name Freq PRN Reason Stop Dose Admin Enoxaparin Sodium 30 mg 07/11/19 09:00 07/13/19 08:21 Lovenox SC 30 mg 0900 MOHAN Administration Fentanyl Citrate 2,000 mcg/ 100 mls @ 0 mls/hr 07/09/19 13:53 07/12/19 02:22 Sodium Chloride IV 08/08/19 13:53 100 mls INF MOHAN Administration Protocol Per Protocol Piperacillin Sod/Tazobactam 100 mls @ 200 mls/hr 07/10/19 10:00 07/13/19 17: 23 Sod 2.25 gm/ Sodium Chloride IVPB 100 mls 0200,1000,1800 MOHAN Administration Dexmedetomidine HCl 200 mcg/ 50 mls @ 0 mls/hr 07/13/19 10:45 07/13/19 17:24 Sodium Chloride IVPB 50 mls INF MOHAN Administration Protocol Per Protocol Lorazepam 2 mg 07/09/19 13:53 07/09/19 19:39 Ativan SLOW IVP 08/08/19 13:53 2 mg Q1H PRN Administration Breakthrough agitation Oseltamivir Phosphate 75 mg 07/10/19 09:00 07/13/19 09:47 Tamiflu PO 75 mg BID MOHAN Administration Pantoprazole Sodium 40 mg 07/12/19 09:00 07/13/19 08:21 Protonix PO 40 mg DAILY MOHAN Administration Propofol 1,000 mg 07/09/19 13:53 07/13/19 17:24 Diprivan IV 08/08/19 13:53 1,000 mg INF PRN Administration TO ACHIEVE GOAL RASS Protocol Sodium Chloride 10 ml 07/10/19 09:00 07/13/19 08:21 Flush - Normal Saline IVF 10 ml Q12HR MOHAN Administration - Exam General Appearance: NAD, awake alert General - other findings: Morbidly obese Eye: PERRL ENT: normocephalic atraumatic, no oropharyngeal lesions Neck: supple, no JVD Heart: RRR, no murmur, no gallops, no rubs Respiratory: CTAB, no rales, no ronchi Gastrointestinal: soft, non-tender, non-distended, normal bowel sounds Extremities: no cyanosis, no clubbing Extremities - other findings: lymphedema with venous stasis bilaterally Skin: normal turgor, no lesions, no rashes Neurological: cranial nerve grossly intact, normal sensation to touch Musculoskeletal: normal tone, normal strength, no muscle wasting Hosp A/P - Plan US soft tissue: no fluid collection or mass Abd US: enlarged liver Chest Xray 07/13: left basilar airspace disease This is a 59 year old male with past medical history of morbid obesity who presented with altered mental status. Presented with severe hypercapneic and hypoxic and lactic acidosis. Was intubated due to failing BIPAP #Acute hypoxic respiratory failure secondary to influenza with pneumonia #Sepsis secondary to pneumonia and Klebsiella UTI + Methamphetamine - still intubated . Vent management per ICU - continue IV zosyn day 3 and tamiflu day 3 - respiratory culture shows normal respiratory culture . Urine legionella and urine strep negative Transaminitis - secondary to shock liver. Improving - will send hepatitis serology Anemia - check iron panel in am RODNEY - creatinine 1.88 - slightly worsening. Will start IV fluids - will start low dose IV fluids at 75/hour Hypertension - hold home medication Code status: fulll code
[2019-07-13] MEDS: Sodium Chloride 0.9% 1,000 ML IV SCH (18:50)
--- NOTE | 2019-07-13 18:59 | PRG ---
DATE OF SERVICE: 07/13/2019 SUBJECTIVE: Kev Reyes was deeply sedated this morning, was hypoventilating. Sedation will be decreased and ventilatory rate was adjusted. OBJECTIVE: VITAL SIGNS: His blood pressure is 130/76, heart rate is 50, respiratory rates in the teens this evening. Intake and outputs, positive 1920. LUNGS: Remarkable for distant breath sounds. HEART: Regular rhythm. ABDOMEN: Soft. EXTREMITIES: Without asymmetry or edema. LABORATORY DATA: White count 5.9, hemoglobin 12.0, platelets 153. Sodium 143, potassium 4.3, chloride 106, bicarb 29, BUN 51, creatinine 1.88, which is essentially unchanged. PH is 7.27, pCO2 is 66, pO2 is 102 this morning. DIAGNOSTIC DATA: Chest x-ray was unchanged. Intake and output, positive 1920. IMPRESSION: 1. Respiratory failure, currently not weanable. 2. Life-threatening obesity, weighs over 500 pounds. 3. Wkoxq-[id number] kidney disease. 4. Influenza. 5. History of hepatitis. 6. History of methamphetamine. 7. Likely severe sleep apnea. 8. Pneumonia. PLAN: Continue slow decrease ventilatory support. His BMI is 71, which will make weaning and prognosis difficult, but we maybe able to avoid a tracheostomy. It will be several days before we can figure this out. Critical care time is 35 minutes. Job ID: [id number] MTDD
[2019-07-14] MEDS: Propofol 1,000 MG/100 ML VIAL IV PRN ×4 (01:25→18:01)
[2019-07-14] MEDS: Piperacillin/Tazobactam 2.25 GM in Sodium Chloride 0.9% 100 ML IVPB SCH ×3 (01:27→17:06)
[2019-07-14 05:06] LABS: ALT (SGPT) 1661 U/L (8-55); AST (SGOT) 1019 U/L (5-34); Albumin 2.5 g/dL (3.5-5.0); Alkaline Phosphatase 109 U/L (40-110); Anion Gap 11 mmol/L (10-20); BUN (Urea Nitrogen) 59 mg/dL (8.4-25.7); Calc. Creatinine Clearance 144 mL/min (70-130); Calcium 7.6 mg/dL (7.8-10.44); Carbon Dioxide 29 mmol/L (22-29); Chloride 106 mmol/L (98-107); Estimated GFR-MDRD 36; Globulin 4.1 g/dL (2.4-3.5); Glucose 102 mg/dL (70-105); Potassium 3.8 mmol/L (3.5-5.1); Protein, Total 6.6 g/dL (6.0-8.3); Sodium 142 mmol/L (136-145)
[2019-07-14 05:20] LABS: Mean Corpuscular Volume 90.5 fL (78.0-98.0)
[2019-07-14 05:53] LABS: Hemoglobin 11.5 g/dL (14.0-18.0); Mean Corpuscular Hemoglobin 28.3 pg (27.0-31.0); Red Blood Cell (RBC) Count 4.07 mill/uL (4.70-6.10); White Blood Cell (WBC) Count 6.3 thou/uL (4.8-10.8)
[2019-07-14 05:54] LABS: Band 12 % (5-11); Eosinophils 4 % (0-10); Hypochromia SLIGHT = 6-15 cells (100X) (0-5/hpf); Lymphocytes 18 % (21-51); MDiff Complete? YES; Mean Corpuscular HGB CONC 31.2 g/dL (32.0-36.0); Mean Platelet Volume 7.4 fL (7.4-10.4); Monocytes 7 % (0-10); Neutrophil 58 % (42-75); Nucleated RBC 1 % (0); Platelet Count 151 thou/uL (130-400); Platelet Morphology Comment Appears Adequate; Polychromasia SLIGHT = 2-3 cells (100X) (0-2/hpf); Reactive Lymphocytes 1 % (0-10)
[2019-07-14] MEDS: Sodium Chloride 0.9% 1,000 ML IV SCH ×2 (05:57→20:52)
[2019-07-14 07:21] LABS: Actual Bicarbonate (HCO3a) 28.9 mEq/L (22-28); Base Excess (BEa) 1.5 mEq/L (-2.0 to +3.0); CO2 Tension 59.3 mmHg (35.0-45.0); Calcium, Ionized 1.13 mmol/L (1.12-1.30); Carboxyhemoglobin (COHb) 1.4 gm% (0.0-3.0); Hemoglobin (Hb) 11.9 g/dL (14.0-18.0); O2 Tension (PaO2) 100.6 mmHg (80.0-100.0); Potassium - ABG Lab 3.94 mmol/L (3.70-5.30); pH, Arterial 7.31 (7.35-7.45)
[2019-07-14 07:31] LABS: Puncture Site RRAD
[2019-07-14 07:32] LABS: ALV-art Gradient 181.775 (0-20)
[2019-07-14] MEDS: Enoxaparin Sodium 30 MG/0.3 ML SYRINGE SC SCH (08:11)
[2019-07-14] MEDS: Pantoprazole 40 MG GRANULES PACKET PO SCH (08:11)
--- NOTE | 2019-07-14 09:11 | RAD ---
PORTABLE SEMIUPRIGHT FRONTAL CHEST RADIOGRAPH: 07/14/2019 HISTORY: Pneumonia. COMPARISON: 07/13/2019 FINDINGS: Body habitus and portable technique limit detailed assessment. Endotracheal tube, nasogastric tube an d left sided vascular catheter are present. Prominence of the cardiac silhouette. Pulmonary vascular congestion is noted. Mild increased linear density in the left base. IMPRESSION: No significant interval change. The study is quite limited secondary to the portable technique, body habitus and respiratory motion a rtifact. POS: [facility]
[2019-07-14] MEDS: Oseltamivir 6 MG/ML ORAL SUSP PO SCH ×2 (09:20→20:52)
[2019-07-14 10:45] LABS: Iron 46 ug/dL (65-175); Iron Binding Capacity, Total 236 mcg/dL (261-462)
[2019-07-14 11:27] LABS: HBCM Index 0.04 S/CO (0-0.79); Hep A IgM AB Non-Reactive (NonReactive); Hep A IgM S/CO 0.11 S/CO (0-0.79); Hepatitis B Core IgM Abs Non-Reactive (NonReactive)
[2019-07-14 11:36] LABS: Hep C IgG Ab Reflex HepC Qnt (NonReactive); Hep C Index 7.46 S/CO (0-0.79)
[2019-07-14 12:21] LABS: HBSAg Index 1.98 S/CO (0-0.99)
[2019-07-14 12:42] LABS: Hep B Surf Ag Reflx Confirmation S/CO (NonReactive)
--- NOTE | 2019-07-14 15:45 | PDOC.HOSPP ---
- Subjective Encounter Date: 07/14/19 - Objective Vital Signs & Weight: Vital Signs (12 hours) Temp Pulse Resp Pulse Ox 07/14/19 14:41 51 L 07/14/19 14:00 16 07/14/19 12:00 16 07/14/19 11:04 47 L 07/14/19 11:00 98.7 F 07/14/19 10:00 16 07/14/19 08:00 98.4 F 16 100 07/14/19 06:00 16 07/14/19 04:00 97.5 F L 16 Weight Admit Weight 523 lb 2.5 oz Weight 531 lb 5.024 oz Most Recent Monitor Data Heart Rate from ECG 49 NIBP 99/58 NIBP BP-Mean 71 Respiration from ECG 16 SpO2 98 I&O: 07/13/19 07/14/19 07/15/19 06:59 06:59 06:59 Intake Total 2870 3609 300 Output Total 950 1930 490 Balance 1920 1679 -190 Result Diagrams: 07/14/19 03:42 07/14/19 03:42 Hospitalist ROS - Medication Medications: Active Medications Generic Name Dose Route Start Last Admin Trade Name Freq PRN Reason Stop Dose Admin Enoxaparin Sodium 30 mg 07/11/19 09:00 07/14/19 08:11 Lovenox SC 30 mg 0900 MOHAN Administration Fentanyl Citrate 2,000 mcg/ 100 mls @ 0 mls/hr 07/09/19 13:53 07/12/19 02:22 Sodium Chloride IV 08/08/19 13:53 100 mls INF MOHAN Administration Protocol Per Protocol Piperacillin Sod/Tazobactam 100 mls @ 200 mls/hr 07/10/19 10:00 07/14/19 09: 21 Sod 2.25 gm/ Sodium Chloride IVPB 100 mls 0200,1000,1800 MOHAN Administration Sodium Chloride 1,000 mls @ 75 mls/hr 07/13/19 18:15 07/14/19 05:57 Normal Saline 0.9% IV 1,000 mls .[id number] MOHAN Administration Dexmedetomidine HCl 400 mcg/ 100 mls @ 0 mls/hr 07/14/19 10:15 07/14/19 11:40 Sodium Chloride IVPB 100 mls INF MOHAN Administration Protocol Per Protocol Lorazepam 2 mg 07/09/19 13:53 07/09/19 19:39 Ativan SLOW IVP 08/08/19 13:53 2 mg Q1H PRN Administration Breakthrough agitation Oseltamivir Phosphate 75 mg 07/10/19 09:00 07/14/19 09:20 Tamiflu PO 75 mg BID MOHAN Administration Pantoprazole Sodium 40 mg 07/12/19 09:00 07/14/19 08:11 Protonix PO 40 mg DAILY MOHAN Administration Propofol 1,000 mg 07/09/19 13:53 07/14/19 08:11 Diprivan IV 08/08/19 13:53 1,000 mg INF PRN Administration TO ACHIEVE GOAL RASS Protocol Sodium Chloride 10 ml 07/10/19 09:00 07/14/19 08:11 Flush - Normal Saline IVF 10 ml Q12HR MOHAN Administration - Exam General Appearance: NAD, awake alert Eye: PERRL, anicteric sclera ENT: normocephalic atraumatic, no oropharyngeal lesions Neck: no JVD Heart: RRR, no murmur, no gallops, no rubs Respiratory: CTAB, no wheezes, no ronchi Respiratory - other findings: bilateral rales Gastrointestinal: soft, non-tender, non-distended, normal bowel sounds Extremities: no cyanosis, no clubbing, no edema Skin: normal turgor, no lesions, no rashes Neurological: cranial nerve grossly intact, normal sensation to touch, no focal deficits, no new deficit Musculoskeletal: normal tone, normal strength, no muscle wasting Hosp A/P - Plan US soft tissue: no fluid collection or mass Abd US: enlarged liver Chest Xray 07/13: left basilar airspace disease Chest X ray 07/14: pulmonary vascular congestion This is a 59 year old male with past medical history of morbid obesity who presented with altered mental status. Presented with severe hypercapneic and hypoxic and lactic acidosis. Was intubated due to failing BIPAP #Acute hypoxic and hypercapenic respiratory failure secondary to influenza with pneumonia #Sepsis secondary to pneumonia and Klebsiella UTI + Methamphetamine - still intubated . Ph up to 7.33, pCO2 59. Patient morbidly obese, slow weaning from ventilator per pulmonary - continue IV zosyn day 4 and tamiflu day 4 - respiratory culture shows normal respiratory culture . Urine legionella and urine strep negative #Transaminitis #Hepatitis B and C - likely secondary to shock liver. Improving - patient is Hep B positive and hep C positive. Will place GI consult Anemia of chronic disease - Hb 11.5, stable. Iron studies consistent with anemia of chronic disease RODNEY - creatinine slightly worsened to 1.9. Started IVF 75/hour. Continue for now per nephro Lymphedema - likely secondary to low albumin. Continue to monitor Hypertension - hold home medication Code status: fulll code
--- NOTE | 2019-07-14 16:22 | PRG ---
DATE OF SERVICE: 07/14/2019 SUBJECTIVE: A 59-year-old male, being seen for acute kidney injury. The patient is intubated and making urine. OBJECTIVE: CONSTITUTIONAL: The patient is resting. VITAL SIGNS: Afebrile, pulse 75, breathing 16, and blood pressure 99/58. GENERAL APPEARANCE AND MENTAL STATUS: Fair. HEAD/NECK: Normocephalic. Atraumatic. EYES: EOMI. No deformity. EARS: Clear. No ulcers. NOSE: Intact. No lesions. MOUTH: Clear. No discharge. THROAT: Clear. No exudate. LUNGS: Clear. No crackles. CARDIAC: S1, S2. No rub. ABDOMEN: Benign. Bowel sounds positive. GENITALIA/RECTUM: Snyder absent. BACK/EXTREMITIES: Edema 0+. NEUROLOGICAL: Alert and motor intact. SKIN: LYMPHATICS: LABORATORY DATA: Hemoglobin 11.5. Creatinine 1.9. ASSESSMENT AND PLAN: 1. Acute kidney injury, improved. 2. Hypertension, stable. 3. Anemia, stable. 4. Medication based on GFR appropriate. The patient is nonoliguric. Continue hydration. Job ID: [id number]
--- NOTE | 2019-07-14 18:10 | PRG ---
DATE OF SERVICE: 07/14/2019 SUBJECTIVE: Mr. Reyes is clinically about the same. OBJECTIVE: VITAL SIGNS: Heart rate is in the 40s, blood pressure is 92 to 103, respiratory rate 16, oximetry is 96%. LUNGS: Distant clear. HEART: Regular rhythm. ABDOMEN: Soft and massive. EXTREMITIES: Massive. NEUROLOGIC: Nonfocal. LABORATORY DATA: White count 6.3, hemoglobin 11.5, platelets 151. Sodium 142, potassium 3.8, chloride 106, bicarb 29, BUN 59, and creatinine 1.91. IMPRESSION: 1. Life-threatening obesity with respiratory failure. 2. Chronic kidney disease. 3. History of hypertension, influenza. 4. History of methamphetamine. 5. Probable severe sleep apnea. 6. Pneumonia. His size precludes getting a decent radiograph to determine how significant pneumonia if he has one is. We will continue with supportive care. It is highly likely he will need a tracheostomy in my opinion. Critical care time is 35 minutes. Job ID: [id number] MTDD
[2019-07-15] MEDS: Piperacillin/Tazobactam 2.25 GM in Sodium Chloride 0.9% 100 ML IVPB SCH ×3 (02:21→17:06)
[2019-07-15] MEDS: Propofol 1,000 MG/100 ML VIAL IV PRN ×3 (02:27→21:12)
[2019-07-15 05:05] LABS: ALT (SGPT) 1137 U/L (8-55); AST (SGOT) 572 U/L (5-34); Albumin 2.6 g/dL (3.5-5.0); Alkaline Phosphatase 101 U/L (40-110); Anion Gap 12 mmol/L (10-20); BUN (Urea Nitrogen) 72 mg/dL (8.4-25.7); Bilirubin, Total 0.7 mg/dL (0.2-1.2); Calc. Creatinine Clearance 143 mL/min (70-130); Calcium 7.8 mg/dL (7.8-10.44); Carbon Dioxide 28 mmol/L (22-29); Chloride 108 mmol/L (98-107); Estimated GFR-MDRD 36; Globulin 4.4 g/dL (2.4-3.5); Glucose 108 mg/dL (70-105); Potassium 4.1 mmol/L (3.5-5.1); Sodium 144 mmol/L (136-145)
[2019-07-15 05:07] LABS: Hemoglobin 11.3 g/dL (14.0-18.0); Mean Corpuscular HGB CONC 30.5 g/dL (32.0-36.0); Mean Corpuscular Hemoglobin 27.4 pg (27.0-31.0); Mean Platelet Volume 7.3 fL (7.4-10.4); Platelet Count 169 thou/uL (130-400); RBC Distribution Width 15.3 % (11.5-14.5); White Blood Cell (WBC) Count 7.5 thou/uL (4.8-10.8)
[2019-07-15 05:08] LABS: Band 3 % (5-11); Eosinophils 4 % (0-10); Lymphocytes 16 % (21-51); MDiff Complete? YES; Monocytes 18 % (0-10); Neutrophil 59 % (42-75)
[2019-07-15 08:07] LABS: Actual Bicarbonate (HCO3a) 27.3 mEq/L (22-28); Base Excess (BEa) 0.1 mEq/L (-2.0 to +3.0); CO2 Tension 56.3 mmHg (35.0-45.0); Calcium, Ionized 1.12 mmol/L (1.12-1.30); Carboxyhemoglobin (COHb) 0.9 gm% (0.0-3.0); Hemoglobin (Hb) 12.5 g/dL (14.0-18.0); Potassium - ABG Lab 4.14 mmol/L (3.70-5.30)
[2019-07-15 08:13] LABS: ALV-art Gradient 195.125 (0-20); Puncture Site L.R.
[2019-07-15] MEDS: Pantoprazole 40 MG GRANULES PACKET PO SCH (08:15)
[2019-07-15] MEDS: Enoxaparin Sodium 30 MG/0.3 ML SYRINGE SC SCH (08:15)
[2019-07-15] MEDS: Oseltamivir 6 MG/ML ORAL SUSP PO SCH (08:44)
[2019-07-15] MEDS ORDERED: Furosemide 40 MG/4 ML VIAL SLOW IVP SCH (09:15)
--- NOTE | 2019-07-15 09:30 | PRG ---
DATE OF SERVICE: 07/15/2019 TIME SPENT: 35 minutes Critical Care Time. SUBJECTIVE: The patient remains intubated on mechanical ventilation. He will wake up and follow some commands for me. He is currently on Precedex drip and propofol. OBJECTIVE: VITAL SIGNS: His temperature is 99.6, pulse 63, blood pressure 154/83, O2 saturation 95%. 24-hour intake 3086, output 1465. HEENT: Unremarkable. NECK: No JVD. LUNGS: Coarse breath sounds. CARDIOVASCULAR: S1 and S2. Regular. ABDOMEN: Morbidly obese. Soft. EXTREMITIES: Edematous legs. LABORATORY DATA: Sodium 144, potassium 4.1, chloride 108, CO2 of 28, BUN 72, creatinine 1.9, glucose 108, AST 572, ALT 1137. A pH 7.30, pCO2 of 56, pO2 of 91, that is on SIMV rate 16, tidal volume 500, PEEP 5, pressure support 10, FiO2 of 50%. White blood cell count 7.5, hematocrit 36.9, platelet count 169. Chest x-ray demonstrates cardiomegaly, vascular congestion. ASSESSMENT: 1. Acute respiratory failure requiring mechanical ventilation. 2. Probable underlying obesity hypoventilation syndrome and obstructive sleep apnea. 3. Methamphetamine abuse. 4. Influenza A. 5. Transaminitis. 6. Bilateral pneumonia. 7. Acute kidney injury. PLAN: 1. I will go ahead and stop his IV fluids as he has been profoundly fluid overloaded for the last 3 days. I will give him a dose of Lasix. I do realize this will probably make his BUN and creatinine go up a little more. 2. Stop Tamiflu as he has had 5 days of that. 3. Continue Zosyn for the time being. 4. Try spontaneous breathing trials with hopes of getting extubated in the next day or 2. Job ID: [id number]
--- NOTE | 2019-07-15 09:39 | RAD ---
PORTABLE CHEST: HISTORY: Pneumonia followup. COMPARISON: 07/14/2019. FINDINGS: Cardiomegaly. Vascular congestion. Interstitial congestion could represent infiltrate or edema. ET tube and NG Tube remain in place. Central line unchanged. IMPRESSION: Cardiomegaly with vascular and interstitial congestion. POS: [facility]
--- NOTE | 2019-07-15 12:29 | PRG ---
DATE OF SERVICE: 07/15/2019 SUBJECTIVE: The patient is seen and examined in the ICU. Remains intubated. OBJECTIVE: GENERAL: This is a morbidly obese male, intubated. VITAL SIGNS: Temperature 98.7, pulse 63, respiratory rate 20, blood pressure 194/103. HEENT: Intubated. CV: S1, S2. RESPIRATORY: Clear. GI: Abdomen obese, soft. MUSCULOSKELETAL: 1+ edema. DERMATOLOGIC: No skin rash. NEUROLOGIC: Intubated. LABORATORY DATA: Hemoglobin is 11.3, potassium 4.1, BUN is 72, and creatinine is 1.9. ASSESSMENT AND PLAN: 1. Acute kidney injury on chronic kidney disease stage 3 with stable creatinine. 2. Anemia. 3. History of hypertension, stable. 4. Acute hypoxic respiratory failure, intubated. 5. Morbid obesity. 6. Acute respiratory acidosis. 7. Septic shock. 8. Influenza with pneumonia. 9. Substance abuse with methamphetamine. 10. Transaminitis. 11. Renal function seems to be stable. Fluid stopped. Currently on Lasix for fluid overload per Pulmonology and on Zosyn. Continue supportive care. We will monitor renal function closely. The patient remains high risk for complications. Job ID: [id number]
--- NOTE | 2019-07-15 16:07 | PDOC.HOSPP ---
- Subjective Encounter Date: 07/15/19 Encounter Time: 13:00 Subjective: The patient remains intubated. He was placed on CPAP earlier today per nursing staff but then was agitated and placed back on ventilator. He will be placed back on SPONT again this afternoon THe patient was noted to be following commands - Objective Vital Signs & Weight: Vital Signs (12 hours) Temp Pulse Resp BP 07/15/19 14:00 22 H 07/15/19 13:57 47 L 136/80 07/15/19 12:00 21 H 07/15/19 11:00 98.0 F 46 L 07/15/19 10:00 24 H 07/15/19 08:00 98.7 F 16 07/15/19 07:37 46 L 119/65 07/15/19 06:00 25 H 07/15/19 04:24 46 L Weight Admit Weight 523 lb 2.5 oz Weight 531 lb 5.024 oz Most Recent Monitor Data Heart Rate from ECG 63 NIBP 167/86 NIBP BP-Mean 113 Respiration from ECG 20 SpO2 98 I&O: 07/14/19 07/15/19 07/16/19 06:59 06:59 06:59 Intake Total 3609 3086 780 Output Total 1930 1465 1865 Balance 1679 1621 -1085 Result Diagrams: 07/15/19 04:00 07/15/19 04:00 Hospitalist ROS - Review of Systems ROS unobtainable: due to mental status - Medication Medications: Active Medications Generic Name Dose Route Start Last Admin Trade Name Freq PRN Reason Stop Dose Admin Enoxaparin Sodium 30 mg 07/11/19 09:00 07/15/19 08:15 Lovenox SC 30 mg 0900 MOHAN Administration Fentanyl Citrate 2,000 mcg/ 100 mls @ 0 mls/hr 07/09/19 13:53 07/12/19 02:22 Sodium Chloride IV 08/08/19 13:53 100 mls INF MOHAN Administration Protocol Per Protocol Piperacillin Sod/Tazobactam 100 mls @ 200 mls/hr 07/10/19 10:00 07/15/19 08: 27 Sod 2.25 gm/ Sodium Chloride IVPB 100 mls 0200,1000,1800 MOHAN Administration Dexmedetomidine HCl 400 mcg/ 100 mls @ 0 mls/hr 07/14/19 10:15 07/15/19 08:29 Sodium Chloride IVPB 100 mls INF MOHAN Administration Protocol Per Protocol Lorazepam 2 mg 07/09/19 13:53 07/09/19 19:39 Ativan SLOW IVP 08/08/19 13:53 2 mg Q1H PRN Administration Breakthrough agitation Pantoprazole Sodium 40 mg 07/12/19 09:00 07/15/19 08:15 Protonix PO 40 mg DAILY MOHAN Administration Propofol 1,000 mg 07/09/19 13:53 07/15/19 08:15 Diprivan IV 08/08/19 13:53 1,000 mg INF PRN Administration TO ACHIEVE GOAL RASS Protocol Sodium Chloride 10 ml 07/10/19 09:00 07/15/19 08:16 Flush - Normal Saline IVF 10 ml Q12HR MOHAN Administration - Exam General Appearance: NAD General - other findings: drowsy but able to lift arm, lift head and move otes Eye: PERRL, anicteric sclera ENT: normocephalic atraumatic, no oropharyngeal lesions Neck: no JVD, no carotid bruit Heart: RRR, no murmur, no gallops, no rubs Respiratory - other findings: bilateral rales Gastrointestinal: soft, non-tender, non-distended Extremities: no cyanosis, no clubbing Extremities - other findings: diffuse lymphedema. Venous stasis dermatitis Skin: normal turgor, no lesions, no rashes Neurological: cranial nerve grossly intact, normal sensation to touch, no focal deficits, no new deficit Hosp A/P - Plan US soft tissue: no fluid collection or mass Abd US: enlarged liver Chest Xray 07/13: left basilar airspace disease Chest X ray 07/14: pulmonary vascular congestion Chest X ray 07/15: pulmonary edema This is a 59 year old male with past medical history of morbid obesity who presented with altered mental status. Presented with severe hypercapneic and hypoxic and lactic acidosis. Was intubated due to failing BIPAP #Acute hypoxic and hypercapenic respiratory failure secondary to influenza with pneumonia #Sepsis secondary to pneumonia and Klebsiella UTI + Methamphetamine - still intubated . Ph up to 7.33, pCO2 63. Patient morbidly obese, slow weaning from ventilator per pulmonary - continue IV zosyn day 5. S/p 5 days of tamiflu discontinued - respiratory culture shows normal respiratory culture . Urine legionella and urine strep negative RODNEY - possibly cardiorenal - creatinine slightly worsened to 1.92 Started on IV lasix today #Transaminitis #Hepatitis B and C - likely secondary to shock liver. Improving - patient is Hep B positive and hep C positive. GI consult pending Anemia of chronic disease - Hb 11.5, stable. Iron studies consistent with anemia of chronic disease Lymphedema - likely secondary to low albumin. Continue to monitor Hypertension - hold home medication Code status: fulll code
[2019-07-16] MEDS: Piperacillin/Tazobactam 2.25 GM in Sodium Chloride 0.9% 100 ML IVPB SCH ×3 (01:49→17:37)
[2019-07-16] MEDS: hydrALAZINE 20 MG/ML VIAL SLOW IVP PRN ×3 (03:33→18:10)
[2019-07-16 04:41] LABS: ALT (SGPT) 772 U/L (8-55); AST (SGOT) 325 U/L (5-34); Albumin 2.7 g/dL (3.5-5.0); Alkaline Phosphatase 96 U/L (40-110); Anion Gap 13 mmol/L (10-20); BUN (Urea Nitrogen) 64 mg/dL (8.4-25.7); Bilirubin, Total 0.7 mg/dL (0.2-1.2); Calc. Creatinine Clearance 175 mL/min (70-130); Carbon Dioxide 27 mmol/L (22-29); Chloride 111 mmol/L (98-107); Estimated GFR-MDRD 46; Globulin 4.3 g/dL (2.4-3.5); Glucose 112 mg/dL (70-105); Potassium 3.8 mmol/L (3.5-5.1); Sodium 147 mmol/L (136-145)
[2019-07-16 05:19] LABS: INR-International Normal Ratio 1.1; Prothrombin Time 14.3 SEC (12.0-14.7)
[2019-07-16] MEDS: Propofol 1,000 MG/100 ML VIAL IV PRN ×4 (05:34→22:45)
[2019-07-16 05:59] LABS: Band 2 % (5-11); Eosinophils 3 % (0-10); Hemoglobin 11.4 g/dL (14.0-18.0); Lymphocytes 14 % (21-51); MDiff Complete? YES; Mean Corpuscular HGB CONC 30.8 g/dL (32.0-36.0); Mean Corpuscular Hemoglobin 27.4 pg (27.0-31.0); Mean Corpuscular Volume 88.9 fL (78.0-98.0); Mean Platelet Volume 7.3 fL (7.4-10.4); Monocytes 6 % (0-10); Neutrophil 75 % (42-75); Platelet Count 186 thou/uL (130-400); RBC Distribution Width 15.4 % (11.5-14.5); Red Blood Cell (RBC) Count 4.18 mill/uL (4.70-6.10); White Blood Cell (WBC) Count 8.2 thou/uL (4.8-10.8)
[2019-07-16 08:01] LABS: Actual Bicarbonate (HCO3a) 29.6 mEq/L (22-28); CO2 Tension 54.6 mmHg (35.0-45.0); Calcium, Ionized 1.14 mmol/L (1.12-1.30); Carboxyhemoglobin (COHb) 0.8 gm% (0.0-3.0); Hemoglobin (Hb) 12.3 g/dL (14.0-18.0); O2 Tension (PaO2) 80.4 mmHg (80.0-100.0); Potassium - ABG Lab 3.64 mmol/L (3.70-5.30); pH, Arterial 7.35 (7.35-7.45)
[2019-07-16 08:02] LABS: Puncture Site L.R.
[2019-07-16] MEDS ORDERED: Furosemide 40 MG/4 ML VIAL IVP SCH (08:15)
--- NOTE | 2019-07-16 08:55 | PRG ---
DATE OF SERVICE: 07/16/2019 35 minutes of critical time. SUBJECTIVE: The patient remains intubated on mechanical ventilation. There has been no changes. OBJECTIVE: VITAL SIGNS: Temperature 98.2, pulse 64, blood pressure 186/85, and O2 saturation 100%. Intake 3347 and output 4515. Weight 528 pounds. GENERAL: He is morbidly obese male, sedated on mechanical ventilation. He will apparently wake up, follows some commands for nursing staff, although I had a hard time getting in followup anything for me. HEENT: Remarkable for the endotracheal tube and orogastric tube in place. NECK: No JVD. LUNGS: Coarse rhonchi bilaterally. CARDIOVASCULAR: S1 and S2 regular. ABDOMEN: Morbidly obese. EXTREMITIES: Edematous. LABORATORY DATA: Sodium 147, potassium 3.8, chloride 111, CO2 of 27, BUN 64, creatinine 1.5, and glucose 112. AST 325 and ALT 772. PH 7.35, pCO2 of 54, and pO2 of 80, that is on CPAP 5, pressure support 10, FiO2 40%. White blood cell count 8.2, hematocrit 37.2, and platelet count 186. DIAGNOSTIC DATA: His x-ray shows no acute changes. ASSESSMENT: 1. Acute respiratory failure, requiring mechanical ventilation. 2. Probable obesity hypoventilation syndrome/obstructive sleep apnea. 3. Influenza A. 4. Methamphetamine abuse. 5. Transaminitis. 6. Chronic kidney disease. 7. Bilateral pneumonia. PLAN: 1. Given a dose of Lasix today. 2. Add nebulization treatments. 3. Continue supportive care with goal of extubation by tomorrow. Job ID: [id number]
[2019-07-16] MEDS: Pantoprazole 40 MG GRANULES PACKET PO SCH (09:29)
[2019-07-16] MEDS: Enoxaparin Sodium 30 MG/0.3 ML SYRINGE SC SCH (09:29)
--- NOTE | 2019-07-16 10:31 | RAD ---
PORTABLE CHEST: Date: 07/16/2019 INDICATION: Pneumonia. CCU follow-up. COMPARISON: 07/15/2019. FINDINGS: The exam is degraded due to motion artifact. ET tube and NG tube remain in place. Cardiomegaly with v ascular congestion and perihilar infiltrates again noted. No evidence of significant interval change. IMPRESSION: Film degraded due to motion artifact. No evidence of significant interval change. POS: [facility]
--- NOTE | 2019-07-16 10:52 | CON ---
DATE OF CONSULTATION: 07/15/2019 REASON FOR CONSULT: Positive hepatitis C antibody, positive hepatitis B surface antigen. HISTORY OF PRESENT ILLNESS: This comes from review of the chart. The patient is intubated and sedated and cannot contribute to the history. Family is not available. The pulmonary ICU doctor and the nurse have added to his history. Mr. Reyes is a 59-year-old gentleman who is morbidly obese, who came to the emergency room on 07/09/2019 for respiratory distress and altered mental status. He was picked up by ambulance in the community for respiratory distress and confusion. He had a pH of 7.18 on arrival, pCO2 of 74, lactic acid 5.2. He was on BiPAP, but did not respond to therapy and was intubated. He had a chest x-ray that showed an infiltrate at the lung base and had an AST and ALT of 1657 and 1527, alkaline phosphatase of 124. Troponin was 1.95 on admission. He was admitted with a diagnosis of respiratory failure and possible septic shock. He had urine drug screen positive for methamphetamine and amphetamine. His white count was 12 on admission, platelets are 199 and a normal MCV of 90. INR has not been checked during this hospitalization. In the hospital stay, his initial AST and ALT were greater than 3500 and 4666. This slowly improved to the point where today they are 572 and 1137. His albumin is 2.6. Protein is 7. Ferritin at 1256 and iron of 46 and TIBC of 236 for saturation of 19%. Bilirubin has been normal. He was found ultimately to have diagnosis of flu. Alcohol level was zero. He had a hepatitis A IgM negative. Hepatitis B surface antigen positive, B core IgM nonreactive. Hep C antibody positive. strep pneumoniae tests were negative and he had an influenza positive for influenza ? H1 detected on respiratory viral pathogen panel. His swab was of note negative. He had a urine positive for Klebsiella, and a blood 1 positive for MRSA. During the hospital stay, the nurses note he has gradually improved. He has weaned off his pressors which he was on initially. He did have a component of shock kidney as well that has improved. He is receiving tube feeds. The nurse thinks that there is some prior history of hepatitis C, but that cannot be confirmed at this time. PAST MEDICAL HISTORY: Likely of obstructive sleep apnea, remote history hepatitis C from patient's brother, morbid obesity. PAST SURGICAL HISTORY: Unknown. SOCIAL HISTORY: The patient smokes and uses methamphetamine per acquaintances, history is taken from for the emergency room as the patient is unresponsive. It is unclear how much alcohol he drinks. MEDICATIONS: Lotensin, B12, Lasix, potassium. Present medications: Tylenol, dexamethasone, Lovenox, fentanyl p.r.n., furosemide was given one time dose today, Ativan p.r.n., morphine p.r.n., normal saline was discontinued, Protonix continues, Zosyn continues, propofol continues. PHYSICAL EXAMINATION: GENERAL: The patient remains intubated, resecured airway. He has a Dobbhoff feeding tube in. He is morbidly obese. He is comfortable, O2 saturation 94%, In's and O's 1663 and 1930. VITAL SIGNS: Pulse 47, blood pressure 136/80. He is intubated. NECK: He has a large neck. LUNGS: Sounds are distant. HEART: Sounds are distant. ABDOMEN: There is no palpable hepatosplenomegaly. There are no hepatic bruits. There is no shifting dullness or fluid wave. Large pannus. EXTREMITIES: Legs have large pannus. He has no palmar erythema. No spider angiomata. LABORATORY DATA: As per HPI. Hep C RNA is pending. IMAGING STUDIES: He had an abdominal ultrasound on 07/09. There is no comment on ascites, fairly limited evaluation. No gallbladder abnormalities were seen. The liver seemed to be enlarged. ASSESSMENT: This is a 59-year-old gentleman who was admitted in shock, respiratory failure, and was ultimately diagnosed with influenza A. He is improving from this standpoint. 1. Hypoventilation syndrome, chronic, with acute illness and respiratory failure, improving. 2. Influenza A, improving, status post treatment with antiviral therapy. 3. Presentation with elevated liver function tests and pattern consistent with likely shock liver. This also could be related to the flu or toxins as he is using multiple drugs in the outpatient setting. Finally, he does have hepatitis C. Family member with him or a friend had said that he had a history of this in the past, so it is no way to know if this is acute. Hepatitis C acutely does not make the LFTs go as high as these were typically. As for his chronic hepatitis B, he has a surface antigen positive. He had a negative core IgM, so it is not likely as in acute hepatitis B, although this pattern still could be seen in some with a flare of chronic B. Having stated all that, the clinical picture has been one of shock liver. He had some renal insufficiency associated with this as well that is slowly improving. RECOMMENDATIONS: 1. With regard to his liver, I would get an INR just to confirm that he is not in any type of failure. 2. Hepatitis C RNA has been ordered, is not going to change therapy at this time. He is not going to be placed on treatment presently or while he is actively using drugs when he gets out of the hospital. He can come see us about hep C treatment. 3. It would be reasonable to check hepatitis B DNA at some point in time as well if his liver enzymes do not continue to improve. If they continue to improve and go to normal, it can be checked for interest sake, but that would be more likely a chronic carrier state. If his LFTs stay elevated, significantly elevated hep B DNA may be reasonable to consider treatment for chronic hep B at that time, but really we will just watch his liver function tests as they seem to be coming down daily. 4. The patient unfortunately cannot fit in the MRI or CT, therefore detailed imaging of liver will not take place, cannot rule out portal vein thrombosis, hepatic vein thrombosis, or malignancy. Job ID: [id number]
--- NOTE | 2019-07-16 14:14 | PDOC.HOSPP ---
- Subjective Encounter Date: 07/16/19 Encounter Time: 13:00 Subjective: The patient is more awake today, able to look at you when calling his name. He got lasix today and put out almost 2L in 2 hours. He was unable to be weaned off the ventilator today, will try spontaneous again this afternoon per nursing - Objective Vital Signs & Weight: Vital Signs (12 hours) Temp Pulse Resp BP Pulse Ox 07/16/19 12:00 99.3 F 23 H 07/16/19 10:46 56 L 148/73 H 07/16/19 10:45 52 L 14 93 L 07/16/19 10:22 59 L 198/93 H 07/16/19 10:00 21 H 07/16/19 08:00 99.3 F 14 100 07/16/19 07:47 59 L 155/78 H 07/16/19 06:36 22 H 07/16/19 04:00 98.2 F 22 H 07/16/19 03:33 79 188/93 H 07/16/19 02:45 79 188/93 H Weight Admit Weight 523 lb 2.5 oz Weight 528 lb 14.223 oz Most Recent Monitor Data Heart Rate from ECG 69 NIBP 202/106 NIBP BP-Mean 138 Respiration from ECG 23 SpO2 99 I&O: 07/15/19 07/16/19 07/17/19 06:59 06:59 06:59 Intake Total 3086 3347 300 Output Total 1465 4345 2900 Balance 2895 -4060 -4086 Result Diagrams: 07/16/19 03:40 07/16/19 03:40 Hospitalist ROS - Review of Systems ROS unobtainable: due to endotracheal tube Constitutional: reports: fever - Medication Medications: Active Medications Generic Name Dose Route Start Last Admin Trade Name Freq PRN Reason Stop Dose Admin Albuterol/Ipratropium 3 ml 07/16/19 10:30 07/16/19 10:45 Duoneb NEB 3 ml [id number] MOHAN Administration Enoxaparin Sodium 30 mg 07/11/19 09:00 07/16/19 09:29 Lovenox SC 30 mg 0900 MOHAN Administration Hydralazine HCl 20 mg 07/16/19 03:21 07/16/19 10:22 Apresoline SLOW IVP 20 mg Q6H PRN Administration SBP GREATER THAN 160 Fentanyl Citrate 2,000 mcg/ 100 mls @ 0 mls/hr 07/09/19 13:53 07/12/19 02:22 Sodium Chloride IV 08/08/19 13:53 100 mls INF MOHAN Administration Protocol Per Protocol Piperacillin Sod/Tazobactam 100 mls @ 200 mls/hr 07/10/19 10:00 07/16/19 09: 28 Sod 2.25 gm/ Sodium Chloride IVPB 100 mls 0200,1000,1800 MOHAN Administration Dexmedetomidine HCl 400 mcg/ 100 mls @ 0 mls/hr 07/14/19 10:15 07/16/19 09:22 Sodium Chloride IVPB 100 mls INF MOHAN Administration Protocol Per Protocol Lorazepam 2 mg 07/09/19 13:53 07/09/19 19:39 Ativan SLOW IVP 08/08/19 13:53 2 mg Q1H PRN Administration Breakthrough agitation Morphine Sulfate 2 mg 07/09/19 13:53 07/16/19 01:49 Morphine SLOW IVP 08/08/19 13:53 2 mg Q1H PRN Administration BREAKTHROUGH PAIN/Agitation Pantoprazole Sodium 40 mg 07/12/19 09:00 07/16/19 09:29 Protonix PO 40 mg DAILY MOHAN Administration Propofol 1,000 mg 07/09/19 13:53 07/16/19 09:36 Diprivan IV 08/08/19 13:53 1,000 mg INF PRN Administration TO ACHIEVE GOAL RASS Protocol Sodium Chloride 10 ml 07/10/19 09:00 07/16/19 09:33 Flush - Normal Saline IVF 10 ml Q12HR MOHAN Administration - Exam General Appearance: NAD, awake alert Eye: PERRL, anicteric sclera ENT: normocephalic atraumatic, no oropharyngeal lesions Neck: supple, symmetric, no JVD, no thyromegaly Heart: RRR, no murmur, no gallops, no rubs Respiratory: CTAB, no wheezes, no ronchi Respiratory - other findings: bilateral rales Gastrointestinal: soft, non-tender, non-distended, normal bowel sounds Gastrointestinal - other findings: rivera in place Extremities: no cyanosis, no clubbing, no edema Skin: normal turgor, no lesions, no rashes Neurological: cranial nerve grossly intact, normal sensation to touch, no focal deficits, no new deficit Hosp A/P - Plan US soft tissue: no fluid collection or mass Abd US: enlarged liver Chest Xray 07/13: left basilar airspace disease Chest X ray 07/14: pulmonary vascular congestion Chest X ray 07/15: pulmonary edema This is a 59 year old male with past medical history of morbid obesity who presented with altered mental status. Presented with severe hypercapneic and hypoxic and lactic acidosis. Was intubated due to failing BIPAP #Acute hypoxic and hypercapenic respiratory failure secondary to influenza with pneumonia #Sepsis secondary to pneumonia and Klebsiella UTI + Methamphetamine - still intubated . Ph up to 7.33, pCO2 63. Patient morbidly obese, slow weaning from ventilator per pulmonary - continue IV zosyn day 6, continue for one more day - received diuresis 07/15 and 07/16 for pulmonary edema. Repeat chest Xray tomorrow - . S/p 5 days of tamiflu - respiratory culture shows normal respiratory culture . Urine legionella and urine strep negative Hypertensive urgency - started hydralazine 25 mg po tid prn - getting diuresed - on benazepril at home, but holding due to kidney injury - will add imdur 30 mg, increase to 60 if still hypertensive RODNEY - possibly cardiorenal - creatinine improved to 1.57 - receive 40 mg IV lasix today, will order for tomorrow as well #Transaminitis #Hepatitis B and C - likely secondary to shock liver. Improving - patient is Hep B positive and hep C positive. GI consulted, hep C viral RNA pending - needs hep B DNA at some point Anemia of chronic disease - Hb 11.5, stable. Iron studies consistent with anemia of chronic disease Lymphedema - likely secondary to low albumin. Continue to monitor Code status: fulll code
[2019-07-16] MEDS: hydrALAZINE 25 MG TAB PO SCH ×2 (14:16→19:27)
[2019-07-16] MEDS ORDERED: Isosorbide Mononitrate (ER) 30 MG TAB PO SCH ×2 (15:30→15:45)
--- NOTE | 2019-07-16 16:50 | PRG ---
DATE OF SERVICE: 07/16/2019 SUBJECTIVE: The patient was seen and examined in ICU, remains intubated. OBJECTIVE: GENERAL: This is a morbidly obese male, intubated, seen in ICU. VITAL SIGNS: Temperature 97.6, pulse 57, respiratory rate 18, blood pressure 192/96. HEENT: Intubated. CV: S1 and S2, heard. RESPIRATORY: Clear. GI: Abdomen is obese, soft. MUSCULOSKELETAL: 1+ edema. DERMATOLOGIC: No chronic skin lesions. NEUROLOGIC: Intubated but awake. LABORATORY DATA: Hemoglobin is 11.4. Potassium 3.8, BUN is 64, creatinine is 1.5, sodium 147, chloride is 111. ASSESSMENT AND PLAN: 1. Acute kidney injury on chronic kidney disease, stage 3. Renal function is better despite on diuretics. 2. Hypernatremia and hyperchloremia, most likely from diuretics, recommend free water. 3. History of hypertension. 4. Acute hypoxic respiratory failure. 5. Morbid obesity. 6. Septic shock. 7. Substance abuse. 8. Transaminitis. Recommend free water. Renal function is stable. Recommend cautious use of diuretics. We will defer that to Pulmonary and Primary Team. We will follow. Job ID: [id number]
[2019-07-16] MEDS ORDERED: Nitroglycerin 2% Ointment 1 INCH/1 GM Packet TOP SCH (23:45)
[2019-07-17] MEDS: Piperacillin/Tazobactam 2.25 GM in Sodium Chloride 0.9% 100 ML IVPB SCH (01:47)
[2019-07-17] MEDS: hydrALAZINE 20 MG/ML VIAL SLOW IVP PRN ×3 (02:32→22:07)
[2019-07-17 04:36] LABS: ALT (SGPT) 575 U/L (8-55); AST (SGOT) 199 U/L (5-34); Albumin 2.9 g/dL (3.5-5.0); Alkaline Phosphatase 84 U/L (40-110); Anion Gap 13 mmol/L (10-20); BUN (Urea Nitrogen) 52 mg/dL (8.4-25.7); Bilirubin, Total 0.8 mg/dL (0.2-1.2); Calc. Creatinine Clearance 222 mL/min (70-130); Calcium 8.4 mg/dL (7.8-10.44); Carbon Dioxide 29 mmol/L (22-29); Chloride 110 mmol/L (98-107); Estimated GFR-MDRD 60; Globulin 4.7 g/dL (2.4-3.5); Glucose 139 mg/dL (70-105); Potassium 3.5 mmol/L (3.5-5.1); Protein, Total 7.6 g/dL (6.0-8.3); Sodium 148 mmol/L (136-145)
[2019-07-17 04:37] LABS: Eosinophils 2 % (0-10); Hemoglobin 11.6 g/dL (14.0-18.0); Lymphocytes 17 % (21-51); MDiff Complete? YES; Mean Corpuscular HGB CONC 31.1 g/dL (32.0-36.0); Mean Corpuscular Hemoglobin 27.6 pg (27.0-31.0); Mean Corpuscular Volume 88.5 fL (78.0-98.0); Mean Platelet Volume 7.3 fL (7.4-10.4); Monocytes 12 % (0-10); Neutrophil 69 % (42-75); Platelet Count 206 thou/uL (130-400); RBC Distribution Width 15.5 % (11.5-14.5); Red Blood Cell (RBC) Count 4.22 mill/uL (4.70-6.10); White Blood Cell (WBC) Count 7.3 thou/uL (4.8-10.8)
[2019-07-17] MEDS: Propofol 1,000 MG/100 ML VIAL IV PRN (05:53)
[2019-07-17 08:10] LABS: Actual Bicarbonate (HCO3a) 29.3 mEq/L (22-28); Base Excess (BEa) 4.1 mEq/L (-2.0 to +3.0); CO2 Tension 46.5 mmHg (35.0-45.0); Calcium, Ionized 1.15 mmol/L (1.12-1.30); Carboxyhemoglobin (COHb) 1.1 gm% (0.0-3.0); Hemoglobin (Hb) 12.2 g/dL (14.0-18.0); pH, Arterial 7.42 (7.35-7.45)
--- NOTE | 2019-07-17 08:16 | RAD ---
EXAM: CHEST ONE VIEW HISTORY: Pneumonia COMPARISON: 07/16/2019 FINDINGS: Endotracheal tube, nasogastric tube, and left internal jugular vein central venous catheter are noted in place. The tip of the left internal jugular venous catheter overlies expected location of the proximal SVC. Cardiac silhouette remains enlarged. There is increased bilateral interstitial and alve olar opacities with evidence of pulmonary vascular congestion. No other interval change. IMPRESSION: Cardiomegaly with bilateral perihilar interstitial and alveolar opacities likely related to pulmonary edema. Infectious process cannot be entirely excluded.
[2019-07-17 08:17] LABS: ALV-art Gradient 148.075 (0-20); Puncture Site L.R.
[2019-07-17] MEDS ORDERED: DC Sedation Protocol FS ONE (09:05)
[2019-07-17] MEDS ORDERED: Furosemide 40 MG/4 ML VIAL IVP SCH (09:15)
--- NOTE | 2019-07-17 09:28 | PRG ---
DATE OF SERVICE: 07/17/2019 35 minutes of critical time. SUBJECTIVE: The patient remains intubated on mechanical ventilation. He will wake up and follow commands for me without limitation. OBJECTIVE: VITAL SIGNS: His temperature is 98.7, pulse 78, blood pressure 175/92, and O2 saturation 100%. 24-hour intake 4209, output 6020. HEENT: Unremarkable. NECK: No JVD. LUNGS: Clear anteriorly. CARDIOVASCULAR: S1 and S2, regular. ABDOMEN: Soft, obese, and nontender. EXTREMITIES: Edema throughout. LABORATORY DATA: Sodium , potassium 3.5, chloride 110, CO2 of 29, , creatinine 1.2, and glucose 139. AST 199 and ALT 575. White blood cell count 7.3, hematocrit 37.4, and platelet count 206. PH of 7.42, pCO2 of 46, and pO2 of 79. DIAGNOSTIC DATA: X-ray shows no significant change. ASSESSMENT: 1. Acute respiratory failure, requiring mechanical ventilation. 2. Probable obesity hypoventilation syndrome/obstructive sleep apnea. 3. Influenza A. 4. Methamphetamine abuse. 5. Transaminitis. 6. Chronic kidney disease. 7. Bilateral pneumonia. PLAN: 1. Stop antibiotics. 2. Re-dose Lasix. 3. Extubate and observe. Job ID: [id number]
--- NOTE | 2019-07-17 09:36 | PRG ---
DATE OF SERVICE: 07/16/2019 SUBJECTIVE: Mr. Reyes has not changed much. OBJECTIVE: VITAL SIGNS: Temperature is 97.6, pulse is 72, blood pressure 183/97. ABDOMEN: Soft, nontender. He is morbidly obese. LABORATORY DATA: CBC is stable. INR is 1.1. AST and ALT have dropped to 325 and 772. BUN and creatinine are 64 and 1.57. Albumin is 2.7, protein 7. ASSESSMENT: 1. Acute elevation in transaminases on admission, likely multifactorial, but probably shock liver and ischemia are probably the most likely etiology, seems to be improving rapidly. There is no evidence of hepatic decompensation or failure with normal INR. No intervention recommended at this point in time. It should recover on its own. Monitor liver function tests. 2. With regard to his hepatitis C positive and hep B surface antigen being positive, these can be addressed in the outpatient setting if he can keep some followup after and if he recovers from this inpatient admission. There does not appear to be acute hepatitis B present, but we will watch his liver function tests. If it does not resolve, we could check hep B, D, and A while he is here. We will follow from a distance. Job ID: [id number]
[2019-07-17] MEDS: hydrALAZINE 25 MG TAB PO SCH ×3 (09:37→21:05)
[2019-07-17] MEDS: Pantoprazole 40 MG GRANULES PACKET PO SCH (09:37)
[2019-07-17] MEDS: Furosemide 40 MG/4 ML VIAL SLOW IVP SCH (09:38)
[2019-07-17] MEDS: Enoxaparin Sodium 30 MG/0.3 ML SYRINGE SC SCH (09:38)
--- NOTE | 2019-07-17 10:51 | PRG ---
DATE OF SERVICE: 07/17/2019 SUBJECTIVE: The patient was seen and examined in the ICU. Remains intubated, but awake, somewhat agitated. OBJECTIVE: GENERAL: This is a morbidly obese male, intubated. Bedside nurse updated. VITAL SIGNS: Temperature 98.7, pulse 83, respiratory rate 14, and blood pressure 134/66. HEENT: Intubated. CARDIOVASCULAR: S1 and S2 heard. RESPIRATORY: Clear. GASTROINTESTINAL: Abdomen is obese and soft. MUSCULOSKELETAL: 1+ edema. DERMATOLOGIC: No skin rash. NEUROLOGICAL: Intubated, awake. LABORATORY DATA: Potassium 3.5, sodium is 148, bicarb 29, BUN is 52, and creatinine is 1.23. ASSESSMENT AND PLAN: 1. Acute kidney injury on chronic kidney disease, stage 3, much better. 2. Hypernatremia with hyperchloremia. Continue on free water. 3. Cardiorenal syndrome. 4. Acute hypoxic respiratory failure. We will plan to extubate today if possible. 5. Morbid obesity. 6. Obesity hypoventilation. 7. Septic shock. 8. Influenza. 9. Substance abuse, transaminitis. Overall, renal function is better. Elevated sodium. Recommend free water. We will follow. Job ID: [id number]
[2019-07-17] MEDS ORDERED: CCU ELECTROLYTE REPLACEMENT PROTOCOL FS PRN (13:49)
[2019-07-17] MEDS ORDERED: Potassium Phosphate 9 MMOL in Sodium Chloride 0.9% 100 ML IVPB PRN (13:50)
[2019-07-17] MEDS ORDERED: Potassium Chloride 40 MEQ in Premix Bag 1 BAG IVPB PRN (13:50)
[2019-07-17] MEDS ORDERED: Potassium Chloride 40 MEQ in Sodium Chloride 0.9% 250 ML 250 ML IVPB PRN (13:50)
[2019-07-17] MEDS ORDERED: Magnesium Oxide 400 MG TAB PO PRN ×2 (13:50)
[2019-07-17] MEDS ORDERED: Magnesium 2 GM/50 ML 2 GM in Premix Bag 1 BAG IVPB PRN (13:50)
[2019-07-17] MEDS ORDERED: Potassium Phosphate 15 MMOL in Sodium Chloride 0.9% 250 ML 250 ML IV PRN (13:50)
[2019-07-17] MEDS ORDERED: PHOS-NAK 1 PKT PACK PO PRN ×2 (13:50)
[2019-07-17] MEDS ORDERED: Potassium Phosphate 12 MMOL in Sodium Chloride 0.9% 250 ML 250 ML IV PRN (13:50)
[2019-07-17] MEDS ORDERED: Potassium Chloride 20 MEQ TAB PO PRN (13:50)
[2019-07-17] MEDS ORDERED: hydrALAZINE 25 MG TAB PO SCH (15:35)
--- NOTE | 2019-07-17 17:20 | PDOC.HOSPP ---
- Subjective Encounter Date: 07/17/19 Encounter Time: 15:00 Subjective: The patient was extubated today. He appears to have labored breathing. He diuresed 6L of water after getting lasix today. Per nursing he is thirsty and asking for more water, drank 250 of his free water flushes. He was wheezing some, had just gotten a breathing treatment. BLood pressure elevated, received IV hydralazine in additional to oral hydralazine - Objective Vital Signs & Weight: Vital Signs (12 hours) Temp Pulse Resp BP Pulse Ox 07/17/19 16:00 97.9 F 07/17/19 15:56 100 189/97 H 07/17/19 15:15 100 189/97 H 07/17/19 15:07 99 22 H 96 07/17/19 13:07 89 193/96 H 07/17/19 13:00 97.9 F 07/17/19 12:00 97 07/17/19 11:09 94 26 H 96 07/17/19 10:35 92 20 94 L 07/17/19 10:00 22 H 07/17/19 09:37 86 135/66 07/17/19 08:00 98.1 F 22 H 100 07/17/19 07:38 83 169/96 H 07/17/19 07:37 81 22 H 93 L 07/17/19 06:00 18 Weight Admit Weight 523 lb 2.5 oz Weight 521 lb 6.292 oz Most Recent Monitor Data Heart Rate from ECG 103 NIBP 175/87 NIBP BP-Mean 116 Respiration from ECG 16 SpO2 98 I&O: 07/16/19 07/17/19 07/18/19 06:59 06:59 06:59 Intake Total 3347 4209 1809.1 Output Total 2645 6020 2750 Balance -1168 -1811 -945.9 Result Diagrams: 07/17/19 03:36 07/17/19 03:36 Hospitalist ROS - Review of Systems Constitutional: denies: fever, chills Respiratory: denies: cough, dry - Medication Medications: Active Medications Generic Name Dose Route Start Last Admin Trade Name Freq PRN Reason Stop Dose Admin Albuterol/Ipratropium 3 ml 07/16/19 10:30 07/17/19 15:07 Duoneb NEB 3 ml [id number] MOHAN Administration Enoxaparin Sodium 30 mg 07/11/19 09:00 07/17/19 09:38 Lovenox SC 30 mg 09 MOHAN Administration Furosemide 40 mg 07/17/19 09:00 07/17/19 09:38 Lasix SLOW IVP 40 mg DAILY MOHAN Administration Hydralazine HCl 20 mg 07/16/19 03:21 07/17/19 13:07 Apresoline SLOW IVP 20 mg Q6H PRN Administration SBP GREATER THAN 160 Dexmedetomidine HCl 400 mcg/ 100 mls @ 0 mls/hr 07/14/19 10:15 07/17/19 05:54 Sodium Chloride IVPB 100 mls INF MOHAN Administration Protocol Per Protocol Pantoprazole Sodium 40 mg 07/12/19 09:00 07/17/19 09:37 Protonix PO 40 mg DAILY MOHAN Administration Potassium Chloride 40 meq 07/17/19 13:50 07/17/19 15:16 K-Dur PO 40 meq ASDIR PRN Administration FOR SERUM K+ 2.5 - 3.5 Sodium Chloride 10 ml 07/10/19 09:00 07/17/19 09:39 Flush - Normal Saline IVF 10 ml Q12HR MOHAN Administration - Exam General Appearance: NAD, awake alert General - other findings: in moderate respiratory distress Eye: PERRL ENT: normocephalic atraumatic, no oropharyngeal lesions Neck: supple, no JVD Heart: RRR, no murmur, no gallops, no rubs Respiratory: CTAB, no wheezes, no ronchi Respiratory - other findings: bilateral rales Gastrointestinal: soft, non-tender, non-distended, normal bowel sounds Extremities: no cyanosis, no clubbing, no edema Skin: normal turgor, no lesions, no rashes Neurological: cranial nerve grossly intact, normal sensation to touch, no focal deficits, no new deficit Hosp A/P - Plan US soft tissue: no fluid collection or mass Abd US: enlarged liver Chest Xray 07/13: left basilar airspace disease Chest X ray 07/14: pulmonary vascular congestion Chest X ray 07/15: pulmonary edema This is a 59 year old male with past medical history of morbid obesity who presented with altered mental status. Presented with severe hypercapneic and hypoxic and lactic acidosis. Was intubated due to failing BIPAP #Acute hypoxic and hypercapenic respiratory failure secondary to influenza with pneumonia and pulmonary edema #Sepsis secondary to pneumonia and Klebsiella UTI + Methamphetamine abuse - extubated - continue IV zosyn day 7. Got IV lasix 07/15, 07/16, 07/17. Has diuresed significantly. Will repeat chest X ray - s/p 5 days of tamiflu - respiratory culture shows normal respiratory culture . Urine legionella and urine strep negative - wean to oxygen saturation 92% Hypernatremia - sodium up to 148. Possibly from lasix? - encourage patient to drink more water, will back off on additional lasix today Hypertensive urgency - started hydralazine 25 mg po tid, increase to 50 mg tid - hold benazpril due to RODNEY - getting diuresed RODNEY - possibly cardiorenal - creatinine improved to 1.23 with IV diuretics Dysphagia - place speech consult #Transaminitis #Hepatitis B and C - likely secondary to shock liver. Improving - patient is Hep B positive and hep C positive. GI consulted, hep C viral RNA pending - needs hep B DNA at some point Anemia of chronic disease - Hb 11.5, stable. Iron studies consistent with anemia of chronic disease Lymphedema - likely secondary to low albumin. Continue to monitor Code status: fulll code
--- NOTE | 2019-07-17 18:32 | RAD ---
PORTABLE CHEST ONE VIEW: 07/17/19 at 5:46 p.m. HISTORY: Shortness of breath. FINDINGS/IMPRESSION: There has been interval extubation of the endotracheal and nasogastric tubes since earlier exam of 7: 14 a.m. Left internal jugular central venous catheter remains in place. The heart is enlarged. There is pulmonary vascular congestion. Bibasilar alveolar opacities are again seen. No pneumothoraces or l arge effusions are identified. POS: OFF
[2019-07-17] MEDS: Budesonide 0.25 MG/2 ML NEB INH SCH (18:34)
[2019-07-17] MEDS: guaiFENesin ER 600 MG TAB PO SCH (21:06)
[2019-07-18] MEDS ORDERED: diphenhydrAMINE 25 MG CAP PO SCH (03:30)
[2019-07-18] MEDS: hydrALAZINE 20 MG/ML VIAL SLOW IVP PRN (03:32)
[2019-07-18 05:28] LABS: ALT (SGPT) 439 U/L (8-55); AST (SGOT) 136 U/L (5-34); Albumin 3.1 g/dL (3.5-5.0); Alkaline Phosphatase 80 U/L (40-110); Anion Gap 12 mmol/L (10-20); BUN (Urea Nitrogen) 34 mg/dL (8.4-25.7); Bilirubin, Total 1.1 mg/dL (0.2-1.2); Calc. Creatinine Clearance 264 mL/min (70-130); Calcium 8.7 mg/dL (7.8-10.44); Carbon Dioxide 31 mmol/L (22-29); Chloride 108 mmol/L (98-107); Estimated GFR-MDRD 75; Globulin 4.8 g/dL (2.4-3.5); Glucose 106 mg/dL (70-105); Potassium 3.7 mmol/L (3.5-5.1); Protein, Total 7.9 g/dL (6.0-8.3); Sodium 147 mmol/L (136-145)
[2019-07-18 05:45] LABS: Band 4 % (5-11); Hemoglobin 11.9 g/dL (14.0-18.0); Lymphocytes 12 % (21-51); MDiff Complete? YES; Mean Corpuscular HGB CONC 31.2 g/dL (32.0-36.0); Mean Corpuscular Hemoglobin 27.7 pg (27.0-31.0); Mean Corpuscular Volume 88.7 fL (78.0-98.0); Mean Platelet Volume 7.4 fL (7.4-10.4); Monocytes 11 % (0-10); Neutrophil 73 % (42-75); Platelet Count 233 thou/uL (130-400); RBC Distribution Width 15.9 % (11.5-14.5); Red Blood Cell (RBC) Count 4.32 mill/uL (4.70-6.10); White Blood Cell (WBC) Count 8.6 thou/uL (4.8-10.8)
[2019-07-18] MEDS: Budesonide 0.25 MG/2 ML NEB INH SCH ×2 (08:07→18:26)
[2019-07-18] MEDS ORDERED: Zolpidem Tartrate 5 MG TAB PO PRN (08:19)
--- NOTE | 2019-07-18 08:54 | RAD ---
CHEST 1 VIEW PORTABLE: Date: 07/18/2019 HISTORY: Pneumonia. COMPARISON: 07/07/2019. FINDINGS: Again noted are bilateral interstitial and alveolar opacity changes, somewhat more prominent in the r ight infrahilar and perihilar regions when compared to the recent prior studies. No new confluent pro cess. Minimal cardiomegaly. IMPRESSION: Overall stable to slightly improving vascular congestion and increased opacity changes bilaterally. C ontinue short-term follow-up. POS: NIC
--- NOTE | 2019-07-18 08:55 | PRG ---
DATE OF SERVICE: 07/18/2019 SUBJECTIVE: The patient was extubated yesterday. He is awake and alert this morning. He is in no distress. He did not sleep well last night. He is wanting food. OBJECTIVE: VITAL SIGNS: His temperature is 97.2, pulse 89, blood pressure systolic running in the 200s, and O2 sat 100% on nasal cannula. HEENT: Unremarkable. NECK: No adenopathy or JVD. CHEST: Fairly clear anteriorly. CARDIOVASCULAR: S1 and S2, regular. ABDOMEN: Obese, soft, and nontender. EXTREMITIES: Edematous. LABORATORY DATA: Sodium 147, potassium 3.7, chloride 108, CO2 of 31, BUN 34, creatinine 1.0, and glucose 106. AST 136 and ALT 439. White blood cell count 8.6, hematocrit 38.3, and platelet count 233. DIAGNOSTIC DATA: X-ray shows no significant change. ASSESSMENT: 1. Status post prolonged endotracheal intubation for pneumonia related to type A influenza. 2. Probable obesity hypoventilation syndrome/obstructive sleep apnea. 3. History of methamphetamine abuse. 4. Transaminitis, which is improving. 5. Chronic kidney disease with improving BUN and creatinine. PLAN: 1. Transfer to [facility]. 2. Ambien as needed for night. 3. Physical Therapy consult. 4. The patient is now off antibiotics. Job ID: [id number]
[2019-07-18] MEDS: Amlodipine 10 MG TAB PO SCH (09:49)
[2019-07-18] MEDS: guaiFENesin ER 600 MG TAB PO SCH ×2 (09:49→22:21)
[2019-07-18] MEDS: Furosemide 40 MG/4 ML VIAL SLOW IVP SCH (09:49)
[2019-07-18] MEDS: hydrALAZINE 25 MG TAB PO SCH ×3 (09:50→22:22)
--- NOTE | 2019-07-18 10:53 | PRG ---
DATE OF SERVICE: 07/18/2019 SUBJECTIVE: Patient was seen and examined at bedside and overnight events noted. Patient denies any shortness of breath or chest pain or palpitation. No history of nausea or vomiting or diarrhea or fever or chills or cramps. OBJECTIVE: GENERAL: This is a morbidly obese male, in no apparent distress. VITAL SIGNS: Temperature 97.2. Heart rate 98. Respiratory rate 18. Blood pressure 169/95. HEENT: Atraumatic, normocephalic. Oral mucosa is moist. NECK: Supple. CARDIOVASCULAR: S1, S2 heard. Rate and rhythm regular. RESPIRATORY: Clear to auscultation. GASTROINTESTINAL: Abdomen is soft. MUSCULOSKELETAL: No tenderness. No edema. DERMATOLOGIC: No skin rash. NEUROLOGIC: Alert and awake and oriented x3. No focal neurologic deficits. Moving all the extremities. PSYCHIATRIC: Mood and affect normal. LABORATORY DATA: Sodium 147, potassium 3.7, BUN is 34, and creatinine is 1.02. ASSESSMENT AND PLAN: 1. Acute kidney injury on chronic kidney disease, stage 2. Labs are much better. 2. Hypernatremia and hyperchloremia. Continue free water. 3. Alkalosis, most likely is on diuretics. 4. Cardiorenal syndrome. 5. Acute hypoxic respiratory failure, extubated. 6. Obesity hypoventilation syndrome. 7. Septic shock. 8. Influenza. Creatinine is much better. Urine output is good. Currently, on diuretics. Recommend cautious use of diuretics and recommend free water as tolerated. Job ID: [id number]
[2019-07-18] MEDS: Lisinopril 10 MG TAB PO SCH (15:50)
[2019-07-18] MEDS: Enoxaparin Sodium 30 MG/0.3 ML SYRINGE SC SCH (15:51)
--- NOTE | 2019-07-18 17:35 | PDOC.HOSPP ---
- Subjective Encounter Date: 07/18/19 Encounter Time: 14:00 Subjective: Patient feels slightly better. Still short of breath some. Has a less of a cough. Patient has not gotten out of bed yet. - Objective Vital Signs & Weight: Vital Signs (12 hours) Temp Pulse Resp BP Pulse Ox 07/18/19 16:05 98.3 F 07/18/19 16:00 98.3 F 07/18/19 15:50 186/113 H 07/18/19 15:49 87 186/113 H 07/18/19 14:04 87 19 97 07/18/19 12:00 98.8 F 07/18/19 11:14 91 26 H 96 07/18/19 09:50 86 169/95 H 07/18/19 09:49 86 169/95 H 07/18/19 09:00 96 07/18/19 08:08 98 07/18/19 08:05 94 26 H 98 07/18/19 07:00 97.2 F L Weight Admit Weight 523 lb 2.5 oz Weight 517 lb 3.271 oz Most Recent Monitor Data Heart Rate from ECG 88 NIBP 156/87 NIBP BP-Mean 110 Respiration from ECG 18 SpO2 88 I&O: 07/17/19 07/18/19 07/19/19 06:59 06:59 06:59 Intake Total 4209 3055.1 610 Output Total 6020 4665 2230 Balance -1811 -1609.9 -1620 Result Diagrams: 07/18/19 04:20 07/18/19 04:20 Hospitalist ROS - Medication Medications: Active Medications Generic Name Dose Route Start Last Admin Trade Name Freq PRN Reason Stop Dose Admin Albuterol/Ipratropium 3 ml 07/16/19 10:30 07/18/19 14:04 Duoneb NEB 3 ml [id number] MOHAN Administration Amlodipine Besylate 10 mg 07/18/19 09:00 07/18/19 09:49 Norvasc PO 10 mg DAILY MOHAN Administration Budesonide 0.25 mg 07/17/19 18:30 07/18/19 08:07 Pulmicort Neb Solution INH 0.25 mg BID-RT MOHAN Administration Enoxaparin Sodium 30 mg 07/11/19 09:00 07/18/19 15:51 Lovenox SC 30 mg 0900 MOHAN Administration Furosemide 40 mg 07/17/19 09:00 07/18/19 09:49 Lasix SLOW IVP 40 mg DAILY MOHAN Administration Guaifenesin 600 mg 07/17/19 21:00 07/18/19 09:49 Mucinex PO 600 mg Q12HR MOHAN Administration Hydralazine HCl 20 mg 07/16/19 03:21 07/18/19 03:32 Apresoline SLOW IVP 20 mg Q6H PRN Administration SBP GREATER THAN 160 Hydralazine HCl 50 mg 07/17/19 21:00 07/18/19 15:49 Apresoline PO 50 mg TID MOHAN Administration Lisinopril 10 mg 07/18/19 09:00 07/18/19 15:50 Zestril PO 10 mg DAILY MOHAN Administration Potassium Chloride 40 meq 07/17/19 13:50 07/17/19 15:16 K-Dur PO 40 meq ASDIR PRN Administration FOR SERUM K+ 2.5 - 3.5 Sodium Chloride 10 ml 07/10/19 09:00 07/18/19 09:52 Flush - Normal Saline IVF 10 ml Q12HR MOHAN Administration - Exam General Appearance: NAD, awake alert General - other findings: on 2L oxygen, tachypneic Eye: PERRL (L), anicteric sclera ENT: normocephalic atraumatic, no oropharyngeal lesions Neck: supple, no JVD Heart: RRR, no murmur, no gallops, no rubs Respiratory: CTAB, no wheezes, no rales Gastrointestinal: soft, non-tender, non-distended Extremities - other findings: 3+ edema, less pitting. Hyperpigmentation Neurological: cranial nerve grossly intact, normal sensation to touch, no focal deficits, no new deficit Hosp A/P - Plan US soft tissue: no fluid collection or mass Abd US: enlarged liver Chest Xray 07/13: left basilar airspace disease Chest X ray 07/14: pulmonary vascular congestion Chest X ray 07/15: pulmonary edema This is a 59 year old male with past medical history of morbid obesity who presented with altered mental status. Presented with severe hypercapneic and hypoxic and lactic acidosis. Was intubated due to failing BIPAP #Acute hypoxic and hypercapenic respiratory failure secondary to influenza with pneumonia and pulmonary edema #Sepsis secondary to pneumonia and Klebsiella UTI + Methamphetamine abuse - extubated - continue IV zosyn day 7. Got IV lasix 07/15, 07/16, 07/17. Has diuresed significantly. Will repeat chest X ray - s/p 5 days of tamiflu - respiratory culture shows normal respiratory culture . Urine legionella and urine strep negative - wean to oxygen saturation 92% Hypernatremia - sodium up to 148. Possibly from lasix? - encourage patient to drink more water, will back off on additional lasix today Hypertensive urgency - started hydralazine 25 mg po tid, increase to 50 mg tid -started lisinopril 10 mg daily - lasix 40 mg IV RODNEY - possibly cardiorenal - creatinine improved to 1.23 with IV diuretics Dysphagia - place speech consult #Transaminitis #Hepatitis B and C - likely secondary to shock liver. Improving - patient is Hep B positive and hep C positive. GI consulted, hep C viral RNA pending - needs hep B DNA at some point Anemia of chronic disease - Hb 11.5, stable. Iron studies consistent with anemia of chronic disease Lymphedema - likely secondary to low albumin. Continue to monitor Code status: fulll code
[2019-07-19 04:28] LABS: Mean Corpuscular HGB CONC 31.7 g/dL (32.0-36.0); Mean Corpuscular Hemoglobin 28.3 pg (27.0-31.0); Mean Corpuscular Volume 89.4 fL (78.0-98.0); Mean Platelet Volume 7.2 fL (7.4-10.4); Platelet Count 237 thou/uL (130-400); RBC Distribution Width 15.6 % (11.5-14.5); Red Blood Cell (RBC) Count 4.24 mill/uL (4.70-6.10); White Blood Cell (WBC) Count 6.8 thou/uL (4.8-10.8)
[2019-07-19 04:46] LABS: ALT (SGPT) 299 U/L (8-55); AST (SGOT) 92 U/L (5-34); Albumin 3.1 g/dL (3.5-5.0); Alkaline Phosphatase 78 U/L (40-110); Anion Gap 10 mmol/L (10-20); BUN (Urea Nitrogen) 27 mg/dL (8.4-25.7); Bilirubin, Total 0.9 mg/dL (0.2-1.2); Calc. Creatinine Clearance 262 mL/min (70-130); Calcium 8.6 mg/dL (7.8-10.44); Carbon Dioxide 33 mmol/L (22-29); Chloride 105 mmol/L (98-107); Eosinophils 3 % (0-10); Estimated GFR-MDRD 75; Globulin 4.5 g/dL (2.4-3.5); Glucose 102 mg/dL (70-105); Lymphocytes 13 % (21-51); MDiff Complete? YES; Monocytes 7 % (0-10); Neutrophil 77 % (42-75); Platelet Morphology Comment Appears Adequate; Potassium 3.5 mmol/L (3.5-5.1); Protein, Total 7.6 g/dL (6.0-8.3); Sodium 144 mmol/L (136-145)
[2019-07-19] MEDS: Budesonide 0.25 MG/2 ML NEB INH SCH ×2 (07:34→19:59)
--- NOTE | 2019-07-19 08:27 | RAD ---
EXAM: CHEST ONE VIEW HISTORY: Pneumonia COMPARISON: 07/18/2019 FINDINGS: Left internal jugular vein central venous catheter is again noted in place and stable in position. Ca rdiac silhouette is magnified by projection but stable in size. Bilateral perihilar interstitial and alveolar opacities are present. There is suggestion of mild improvement in the opacity in the rig ht infrahilar region. No other interval change. IMPRESSION: Persistent perihilar interstitial and alveolar opacities with mild improvement in aeration in the rig ht infrahilar region. Findings may be related to improving pulmonary edema versus infectious process.
[2019-07-19] MEDS: Furosemide 40 MG/4 ML VIAL SLOW IVP SCH (09:00)
[2019-07-19] MEDS: hydrALAZINE 25 MG TAB PO SCH ×3 (09:00→20:17)
[2019-07-19] MEDS: guaiFENesin ER 600 MG TAB PO SCH ×2 (09:01→20:17)
[2019-07-19] MEDS: Enoxaparin Sodium 30 MG/0.3 ML SYRINGE SC SCH (09:01)
[2019-07-19] MEDS: Lisinopril 10 MG TAB PO SCH (09:01)
[2019-07-19] MEDS: Amlodipine 10 MG TAB PO SCH (09:01)
--- NOTE | 2019-07-19 09:44 | PRG ---
DATE OF SERVICE: 07/19/2019 SUBJECTIVE: The patient is pending a room out in the [facility]. Overall, he is doing better. He is wanting to have his liquid intake liberated. OBJECTIVE: VITAL SIGNS: On exam, temperature of 97.8, pulse 92, blood pressure 129/95, and O2 saturation 90% on nasal cannula. Intake , output 3940. Weight 515 pounds. HEENT: Unremarkable. NECK: No JVD. LUNGS: Fairly clear anteriorly. CARDIAC: S1 and S2. Regular. ABDOMEN: Soft and obese. EXTREMITIES: Edematous. LABORATORY DATA: Sodium 144, potassium 3.5, chloride 105, CO2 of 33, BUN 27, creatinine 1.0, glucose 75, AST 92, ALT 299, and albumin 3.1. White blood cell count 6.8, hematocrit 37.9, and platelet count 237. His chest x-ray shows cardiomegaly without mass, effusion, or infiltrate. ASSESSMENT: 1. Status post respiratory failure, requiring mechanical ventilation. 2. Likely obstructive sleep apnea/obesity hypoventilation syndrome. 3. Status post pneumonia from influenza type A. 4. Resolving transaminitis. 5. Methamphetamine abuse. 6. Chronic kidney disease with improving renal function. PLAN: 1. The patient can likely be transferred to telemetry instead of IM if the bed is available. Continue BiPAP at night for DUANE. 2. Needs a sleep study as an outpatient. Job ID: [id number]
--- NOTE | 2019-07-19 12:07 | PRG ---
DATE OF SERVICE: 07/19/2019 SUBJECTIVE: Patient was seen and examined at bedside and overnight events noted. Patient denies any shortness of breath or chest pain or palpitation. No history of nausea or vomiting or diarrhea or fever or chills or cramps. OBJECTIVE: GENERAL: This is a morbidly obese male, in no apparent distress. VITAL SIGNS: Temperature 97.8. Heart rate 97. Respiratory rate 13. Blood pressure 141/71. HEENT: Atraumatic, normocephalic. Oral mucosa is moist. NECK: Supple. CARDIOVASCULAR: S1, S2 heard. Rate and rhythm regular. RESPIRATORY: Clear to auscultation. GASTROINTESTINAL: Abdomen is soft. MUSCULOSKELETAL: 1+ edema. DERMATOLOGIC: No skin rash. NEUROLOGIC: Alert and awake and oriented x3. No focal neurologic deficits. Moving all the extremities. PSYCHIATRIC: Mood and affect normal. LABORATORY DATA: Potassium is 3.5, BUN is 27, creatinine is 1.02, and sodium is 144. ASSESSMENT AND PLAN: 1. Acute kidney injury on chronic kidney disease, stage 2, much better. 2. Hypernatremia and hyperchloremia, better. 3. Edema, controlled. 4. Alkalosis secondary to diuresis. 5. Obesity. 6. Septic shock. 7. Cardiorenal syndrome. Overall, labs are better. I will sign off. Please call back with any questions. Job ID: [id number]
[2019-07-19 13:29] VITALS: BMI 69.9
[2019-07-19] MEDS: Pantoprazole 40 MG GRANULES PACKET PO SCH (18:44)
--- NOTE | 2019-07-19 19:34 | PDOC.HOSPP ---
- Subjective Encounter Date: 07/19/19 Encounter Time: 15:00 Subjective: The patient states he feels better. He got up with PT to sit on edge of bed for first time. Tomorrow they will try to stand him up. He has mild productive cough and some shortness of breath. He is urinating with lasix - Objective Vital Signs & Weight: Vital Signs (12 hours) Temp Pulse Pulse Pulse Resp BP BP 07/19/19 16:27 88 124/78 07/19/19 16:00 98.9 F 07/19/19 14:04 90 24 H 07/19/19 12:00 99.1 F 07/19/19 10:58 97 30 H 07/19/19 10:35 100 97 139/65 07/19/19 09:01 97 141/71 H 07/19/19 09:00 97 141/71 H 07/19/19 08:00 98.4 F BP Pulse Ox Pulse Ox Pulse Ox 07/19/19 16:27 07/19/19 16:00 07/19/19 14:04 93 L 07/19/19 12:00 07/19/19 10:58 90 L 07/19/19 10:35 121/66 92 L 92 L 07/19/19 09:01 07/19/19 09:00 07/19/19 08:00 92 L Weight Admit Weight 523 lb 2.5 oz Weight 515 lb 14.107 oz Most Recent Monitor Data Heart Rate from ECG 87 NIBP 134/69 NIBP BP-Mean 90 Respiration from ECG 23 SpO2 91 I&O: 07/18/19 07/19/19 07/20/19 06:59 06:59 06:59 Intake Total 3055.1 1680 960 Output Total 4665 3940 2290 Balance -1609.9 -2260 -1330 Result Diagrams: 07/19/19 04:10 07/19/19 04:10 Hospitalist ROS - Review of Systems Constitutional: denies: fever, chills - Medication Medications: Active Medications Generic Name Dose Route Start Last Admin Trade Name Freq PRN Reason Stop Dose Admin Albuterol/Ipratropium 3 ml 07/16/19 10:30 07/19/19 14:04 Duoneb NEB 3 ml [id number] MOHAN Administration Amlodipine Besylate 10 mg 07/18/19 09:00 07/19/19 09:01 Norvasc PO 10 mg DAILY MOHAN Administration Budesonide 0.25 mg 07/17/19 18:30 07/19/19 07:34 Pulmicort Neb Solution INH 0.25 mg BID-RT MOHAN Administration Enoxaparin Sodium 30 mg 07/11/19 09:00 07/19/19 09:01 Lovenox SC 30 mg 0900 MOHAN Administration Furosemide 40 mg 07/17/19 09:00 07/19/19 09:00 Lasix SLOW IVP 40 mg DAILY MOHAN Administration Guaifenesin 600 mg 07/17/19 21:00 07/19/19 09:01 Mucinex PO 600 mg Q12HR MOHAN Administration Hydralazine HCl 20 mg 07/16/19 03:21 07/18/19 03:32 Apresoline SLOW IVP 20 mg Q6H PRN Administration SBP GREATER THAN 160 Hydralazine HCl 50 mg 07/17/19 21:00 07/19/19 16:27 Apresoline PO 50 mg TID MOHAN Administration Lisinopril 10 mg 07/18/19 09:00 07/19/19 09:01 Zestril PO 10 mg DAILY MOHAN Administration Pantoprazole Sodium 40 mg 07/19/19 09:00 07/19/19 09:01 Protonix PO 40 mg DAILY MOHAN Administration Potassium Chloride 40 meq 07/17/19 13:50 07/17/19 15:16 K-Dur PO 40 meq ASDIR PRN Administration FOR SERUM K+ 2.5 - 3.5 Sodium Chloride 10 ml 07/10/19 09:00 07/19/19 09:02 Flush - Normal Saline IVF 10 ml Q12HR MOHAN Administration Sodium Chloride 10 ml 07/09/19 23:51 07/18/19 22:22 Flush - Normal Saline IVF 10 ml PRN PRN Administration Saline Flush - Exam General Appearance: NAD, awake alert Eye: PERRL, anicteric sclera ENT: normocephalic atraumatic, no oropharyngeal lesions Neck: supple, symmetric, no JVD, no thyromegaly Heart: RRR, no murmur, no gallops, no rubs Respiratory: CTAB, no wheezes, no rales, no ronchi Gastrointestinal: soft, non-tender, non-distended, normal bowel sounds Extremities: no cyanosis, no clubbing, 2+ LE edema Extremities - other findings: tenderness to palpation of extremities Skin: normal turgor, no lesions, no rashes Hosp A/P - Plan US soft tissue: no fluid collection or mass Abd US: enlarged liver Chest Xray 07/13: left basilar airspace disease Chest X ray 07/14: pulmonary vascular congestion Chest X ray 07/15: pulmonary edema This is a 59 year old male with past medical history of morbid obesity who presented with altered mental status. Presented with severe hypercapneic and hypoxic and lactic acidosis. Was intubated due to failing BIPAP #Acute hypoxic and hypercapenic respiratory failure secondary to influenza with pneumonia and pulmonary edema #Sepsis secondary to pneumonia and Klebsiella UTI + Methamphetamine abuse - extubated - s/p 7 days IV zosyn. Got IV lasix 07/15, 07/16, 07/17, 07/18. Will discontinue further lasix since lungs seem clear - s/p 5 days of tamiflu - respiratory culture shows normal respiratory culture . Urine legionella and urine strep negative - wean to oxygen saturation 92% Hypernatremia - resolved Hypertensive urgency - started to 50 mg tid -started lisinopril 10 mg daily, amlodipine 10 mg daily RODNEY - possibly cardiorenal - creatinine improved to 1.02 Dysphagia -speech started on mechanical ground diet, not candidate for downgrade at this time #Transaminitis #Hepatitis B and C - likely secondary to shock liver. Improving - patient is Hep B positive and hep C positive. GI consulted, hep C viral RNA pending - needs hep B DNA at some point Anemia of chronic disease - Hb 11.5, stable. Iron studies consistent with anemia of chronic disease Lymphedema - likely secondary to low albumin. Continue to monitor DVT prophylaxis: lovenox Code status: fulll code
[2019-07-19 21:08] LABS: Hep C PCR-Quant HCV Not Detected IU/mL (.)
[2019-07-20 04:59] LABS: Hemoglobin 11.5 g/dL (14.0-18.0); Mean Corpuscular HGB CONC 30.7 g/dL (32.0-36.0); Mean Corpuscular Hemoglobin 27.6 pg (27.0-31.0); Mean Corpuscular Volume 90.1 fL (78.0-98.0); Mean Platelet Volume 7.2 fL (7.4-10.4); Platelet Count 260 thou/uL (130-400); RBC Distribution Width 15.4 % (11.5-14.5); Red Blood Cell (RBC) Count 4.15 mill/uL (4.70-6.10); White Blood Cell (WBC) Count 7.8 thou/uL (4.8-10.8)
[2019-07-20 05:18] LABS: ALT (SGPT) 208 U/L (8-55); AST (SGOT) 67 U/L (5-34); Albumin 2.9 g/dL (3.5-5.0); Alkaline Phosphatase 69 U/L (40-110); Anion Gap 11 mmol/L (10-20); BUN (Urea Nitrogen) 27 mg/dL (8.4-25.7); Bilirubin, Total 0.8 mg/dL (0.2-1.2); Calc. Creatinine Clearance 236 mL/min (70-130); Calcium 8.4 mg/dL (7.8-10.44); Carbon Dioxide 31 mmol/L (22-29); Chloride 104 mmol/L (98-107); Estimated GFR-MDRD 67; Globulin 4.3 g/dL (2.4-3.5); Glucose 95 mg/dL (70-105); Potassium 3.5 mmol/L (3.5-5.1); Protein, Total 7.2 g/dL (6.0-8.3); Sodium 142 mmol/L (136-145)
[2019-07-20] MEDS: Budesonide 0.25 MG/2 ML NEB INH SCH ×2 (07:40→19:11)
[2019-07-20] MEDS: Lisinopril 10 MG TAB PO SCH (09:33)
[2019-07-20] MEDS: guaiFENesin ER 600 MG TAB PO SCH ×2 (09:33→21:59)
[2019-07-20] MEDS: hydrALAZINE 25 MG TAB PO SCH ×3 (09:33→21:59)
[2019-07-20] MEDS: Amlodipine 10 MG TAB PO SCH (09:33)
[2019-07-20] MEDS: Enoxaparin Sodium 30 MG/0.3 ML SYRINGE SC SCH (09:34)
--- NOTE | 2019-07-20 14:17 | PRG ---
DATE OF SERVICE: 07/20/2019 SUBJECTIVE: He is lying in bed. He says he got up today with physical therapy. He feels better and he wants to go home soon. OBJECTIVE: VITAL SIGNS: His temperature 98.2, pulse 82, respirations 17, O2 saturation 93% on nasal cannula, blood pressure 109/52. HEENT: Unremarkable. NECK: No adenopathy. No JVD. LUNGS: Diminished breath sounds throughout. CARDIAC: S1-S2 regular. ABDOMEN: Soft. EXTREMITIES: No edema. LABORATORY DATA: White blood cell count 7.8, hematocrit 37.4, and platelet count 260. Sodium 142, potassium 3.5, chloride 104, CO2 of 31, BUN 27, creatinine 1.1, and glucose 95. ASSESSMENT: 1. Status post respiratory failure, requiring mechanical ventilation. 2. Likely obesity hypoventilation syndrome and obstructive sleep apnea. 3. Methamphetamine abuse. 4. Resolving transaminitis. 5. Status post influenza type A. PLAN: Basically rehabilitation project at this point. He will need an outpatient sleep study. He is off antibiotics, no further recommendations at this time. We will check again Monday. Job ID: [id number]
--- NOTE | 2019-07-20 15:12 | PRG ---
DATE OF SERVICE: 07/20/2019 SUBJECTIVE: The patient is seen and examined at the bedside. He does not have much complaints to offer. He feels gradually better. His appetite is good. He participates in physical therapy sessions. OBJECTIVE: VITAL SIGNS: Blood pressure is 109/52, pulse is 82, respiratory rate is 17, O2 saturation is 93% on nasal cannula, temperature is 98.2 degrees Fahrenheit. He is a big man. His BMI is 70. HEENT: His eyes are PERRLA. Sclerae are nonicteric. Oral mucosa is moist. LUNGS: Breath sounds diminished at both bases. HEART: S1, S2 normal. No S3. No S4. ABDOMEN: Soft, obese, nontender. Bowel sounds present. EXTREMITIES: 1+ peripheral edema similar bilateral on both lower extremities. NEUROLOGIC: He follows my commands. He moves his all 4 extremities. There is no any motor deficits. LABORATORY DATA: Labs showed white count of 7.8, hemoglobin 11.5, hematocrit 37.4, platelet count is 260,000. Sodium of 142, potassium 3.5, chloride 104, CO2 of 31, BUN 27, creatinine 1.13. AST 67, ALT 208. Albumin 2.9 and globulin 4.3. Microbiology, no new findings. IMPRESSION: 1. Acute hypoxic and hypercapnic respiratory failure secondary to influenza with pneumonia and pulmonary edema. 2. Sepsis secondary to pneumonia. 3. Urinary tract infection caused by Klebsiella. 4. Methamphetamine abuse. 5. Hypernatremia, resolved. 6. Hypertensive urgency, resolved. 7. Acute kidney injury, resolved. 8. Transaminitis with positive hepatitis B and C. 9. Chronic anemia. 10. Lymphedema. PLAN: We are going to continue current regimen with PT and OT with a BiPAP at night. We will get a field case manager consult for correction unit placement. Apparently, the patient lives alone and he is not able to go back to his place where he used to live since he noticed gradual deterioration of his physical condition, requiring some help. As soon as nursing unit is arranged, he will be transferred. Job ID: [id number]
[2019-07-20 22:08] VITALS: BP 125/55
[2019-07-21 02:58] VITALS: TEMP 98.8
--- NOTE | 2019-07-22 10:21 | DIS ---
DATE OF ADMISSION: 07/09/2019 DATE OF DISCHARGE: 07/21/2019 DIAGNOSES AT THE TIME OF ADMISSION: 1. Acute respiratory failure with hypoxia and hypercapnia. 2. Severe sepsis with septic shock. 3. Community-acquired pneumonia. 4. Transaminitis. 5. Lactic acidosis. 6. Positive urine drug screen. 7. Acute kidney injury. FINAL DIAGNOSES: 1. Acute hypoxic and hypercapnic respiratory failure secondary to influenza with pneumonia and pulmonary edema. 2. Sepsis secondary to pneumonia. 3. Urinary tract infection secondary to Klebsiella. 4. Methamphetamine abuse. 5. Hypernatremia, resolved. 6. Hypertensive urgency, resolved. 7. Acute kidney injury, resolved. 8. Transaminitis with positive hepatitis B and C. 9. Chronic anemia. 10. Lymphedema. 11. Morbid obesity. 12. Likely obesity hypoventilation syndrome and obstructive sleep apnea home. CONSULTANTS: 1. Raad Cuevas MD, Pulmonary Service. 2. Joshua White MD, Nephrology Service. 3. Zachariah Cervantes MD, Pulmonary Service. 4. Demond Bradley MD, Gastrointestinal Service. 5. Emelina Bauer MD, Nephrology Service. IMAGES: 1. Chest x-ray showed elevation of the right hemidiaphragm, mild infiltrate versus atelectatic changes in the right lung base and mild pulmonary vascular congestion. 2. Chest x-ray post intubation, stable. 3. Soft-tissue ultrasound of the posterior right leg ulcer to rule out abscess, which showed no fluid collection or mass. This was the region of the patient's area of the concern at the level of the area of erythema posterior left gluteal region. 4. Abdominal ultrasound showed. a. Portions of abdominal organs are not well seen due to difficulty in imaging. b. Limited evaluation of the gallbladder but not definite gallbladder calculus was seen. There was no gallbladder wall thickening. Common duct was normal in caliber. c. Enlargement of the liver in craniocaudal dimensions. 5. Echocardiogram showed technically difficult study with suboptimal images. LVEF was estimated at 55% to 60%, there was some trace tricuspid regurgitation. 6. Followup chest x-ray showed lines and tubes in place, nonspecific bacterial pulmonary parenchymal opacities in the medial left base. 7. Followup chest x-ray showed stable exam. 8. Persistent perihilar interstitial and alveolar opacities with mild improvement in aeration in the right infra hilar region. HOSPITAL COURSE: The patient is a 59-year-old male, who was admitted to the hospital with altered mental status and respiratory distress. He was brought to the emergency room by ambulance where he was placed on CPAP due to respiratory distress. By the time he arrived to the emergency room, his [place] coma scale was reported at four. He had ABGs which demonstrated pH of 7.18, pCO2 of 74.6, and PO2 of 86.7, and lactic acid was 5.2. Since he failed his BiPAP trial, he was intubated and mechanically ventilated. He weighs over 500 pounds. Apparently, he was not was not able to fit in the CT scanner. The chest x-ray showed infiltrate in the right lung base. Additionally, he had elevated AST at 1657 and ALT at 1527 and alkaline phosphatase at 124. Troponin on admission was 1.195. At the time of emergency room evaluation, his white count was 12.9, hemoglobin 12.5, hematocrit 40.6, platelet count 199. His BUN was 29, creatinine 1.55. Electrolytes were within normal limits except for potassium which was up at 5.9, chloride was 97, and sodium was 134. His BNP was 87.8. Urine showed 2+ blood, was negative for nitrites, 75 of leukocyte esterase, 7-10 rbc's and 21-50 wbc's, 4+ bacteria present in urine. EKG showed normal sinus rhythm with ventricular rate of 91. He was diagnosed with acute respiratory failure with hypoxia and hypercapnia, was admitted to the CCU for further management of critical care. Pulmonary consult was requested. He was started on propofol sedation. He had workup of septic shock, was started on IV vancomycin and Zosyn. Echocardiogram was obtained for evaluation of shock, blood cultures were obtained and he was given 3 L of IV fluids and continued on IV fluids with normal saline. Also, he was started on Levophed because of his hypotension. He was placed on DVT prophylaxis with Lovenox. It was felt that most likely he has pneumonia, which is the source of his sepsis. The patient was seen by Dr. Cuevas for Pulmonary/Critical Care, who recommended to continue broad-spectrum antibiotics and mechanical ventilation. His echocardiogram was performed, but it was not optimal study but LVEF was estimated at 55% to 60%. Also, he was seen by a programming coordinator for renal evaluation, who recommended to continue vasopressor due to low blood pressure, there was no indication for dialysis and the patient was followed closely. The patient was started on tube feeds and he was continued on Tamiflu which was started from the beginning. His IV fluids were stopped and gradually we were able to wean him off his vasopressor. Ultrasound of the soft tissue did not show any collection of pus and abdominal ultrasound showed enlarged liver and the chest x-ray followup showed left basilar airspace disease. His respiratory culture showed normal respiratory robert and urine Legionella and urine strep testing were negative. His transaminitis gradually improved and it was felt that this was caused by shock liver. Serology for hepatitis was sent and came back positive for hepatitis B and hepatitis C. GI consult was done and the patient was seen by Dr. Bradley for that purpose, who recommended to follow up with him on outpatient basis for further treatment of hepatitis C and surveillance for hepatocarcinoma since he was positive for hepatitis B. After he stops using drugs, urine culture came back positive for Klebsiella and vancomycin was stopped and he was continued on Zosyn. He completed his course of Tamiflu. He was diuresed and got ready for the extubation. He was finally extubated and then successfully, he was transferred out from the intensive care unit and while arrangements were started to send him to jail facility[facility]rehab, he decided to a leave the hospital against medical advice and the physician who was working at night in the facility tried to stop him and explained to him how important is to go through the rehabilitation process but he did not want to listen and he left AMA. Job ID: [id number]
== END 2019-07-21 01:25 | disposition left against medical advice (07) | DRG 870 ==
LOC: ERS 10:26 → CCU 12:52 → 2NO 07-19 18:01
PROVIDERS: ADMIT Internal Medicine; ATTEND Internal Medicine
PROC: 5A1955Z Respiratory Ventilation, Greater than 96 Consecutive Hours (ICD-10-PCS; principal; 2019-07-09)
PROC: 3E043XZ Introduction of Vasopressor into Central Vein, Percutaneous Approach (ICD-10-PCS; 2019-07-09)
PROC: 5A09357 Assistance with Respiratory Ventilation, Less than 24 Consecutive Hours, Continuous Positive Airway Pressure (ICD-10-PCS; 2019-07-09)
PROC: 0BH17EZ Insertion of Endotracheal Airway into Trachea, Via Natural or Artificial Opening (ICD-10-PCS; 2019-07-09)
PROC: 05HN33Z Insertion of Infusion Device into Left Internal Jugular Vein, Percutaneous Approach (ICD-10-PCS; 2019-07-09)
DX: A41.59 Other Gram-negative sepsis (principal); R65.21 Severe sepsis with septic shock; K72.00 Acute and subacute hepatic failure without coma; J96.21 Acute and chronic respiratory failure with hypoxia; J96.22 Acute and chronic respiratory failure with hypercapnia; J10.00 Influenza due to other identified influenza virus with unspecified type of pneumonia; E87.2 Acidosis; N39.0 Urinary tract infection, site not specified; N17.9 Acute kidney failure, unspecified; B19.10 Unspecified viral hepatitis B without hepatic coma; E66.2 Morbid (severe) obesity with alveolar hypoventilation; E87.0 Hyperosmolality and hypernatremia; E87.3 Alkalosis; Z68.45 Body mass index [BMI] 70 or greater, adult; A41.89 Other specified sepsis; F15.10 Other stimulant abuse, uncomplicated; B19.20 Unspecified viral hepatitis C without hepatic coma; D64.9 Anemia, unspecified; F17.200 Nicotine dependence, unspecified, uncomplicated; N18.3 Chronic kidney disease, stage 3 (moderate); I12.9 Hypertensive chronic kidney disease with stage 1 through stage 4 chronic kidney disease, or unspecified chronic kidney disease; D63.1 Anemia in chronic kidney disease; E87.8 Other disorders of electrolyte and fluid balance, not elsewhere classified; I16.0 Hypertensive urgency; E87.5 Hyperkalemia; E83.51 Hypocalcemia; R13.10 Dysphagia, unspecified; T50.2X5A Adverse effect of carbonic-anhydrase inhibitors, benzothiadiazides and other diuretics, initial encounter; Z78.1 Physical restraint status; Z79.899 Other long term (current) drug therapy; Z79.51 Long term (current) use of inhaled steroids
CPT/HCPCS: 31500; 36415; 36556; 51701; 71045; 76999; 80053; 80074; 80202; 80306; 80307; 81003; 81015; 82550; 82553; 82728; 82805; 83540; 83550; 83605; 83690; 83735; 83880; 84145; 84443; 84484; 85007; 85025; 85027; 85610; 87040; 87070; 87077; 87086; 87149; 87186; 87205; 87340; 87449; 87522; 87633; 87798; 87804; 87899; 93005; 93306; 93975; 94002; 94003; 94640; 94660; 96365; 96367; 96368; 96375; 96376; C9113; J0360; J0692; J1650; J1940; J2060; J2270; J2310; J2543; J2704; J3010; J3370; J3490; J7050; J7620; J7626; Q0163

== ENCOUNTER 2019-07-29 15:17 | Inpatient (IN) | payer MEDICARE ==
--- NOTE | 2019-07-29 15:48 | RAD ---
Portable frontal chest radiograph: 07/29/2019 COMPARISON: 07/19/2019 HISTORY: Shortness of breath with dyspnea FINDINGS: Mild pulmonary vascular prominence. Stable prominence of the cardiac silhouette. No pneumot horax or pleural fluid. No focal consolidation or alveolar edema. IMPRESSION: Prominent cardiac silhouette with pulmonary vascular congestion. No focal consolidation o r alveolar edema.
[2019-07-29 15:55] LABS: #Eosinphils 0.2 thou/uL (0.0-0.7); #Lymphocytes 1.5 thou/uL (1.20-3.40); #Monocytes 0.8 thou/uL (0.11-0.59); #Neutrophils 5.6 thou/uL (1.40-6.50); %Basophils 0.4 % (0.0-1.0); %Eosinophils 2.1 % (0.0-10.0); %Lymphocytes 18.2 % (21.0-51.0); %Monocytes 9.3 % (0.0-10.0); Hemoglobin 12.1 g/dL (14.0-18.0); Mean Corpuscular HGB CONC 31.2 g/dL (32.0-36.0); Mean Corpuscular Hemoglobin 28.6 pg (27.0-31.0); Mean Platelet Volume 6.7 fL (7.4-10.4); Platelet Count 283 thou/uL (130-400); RBC Distribution Width 16.1 % (11.5-14.5); Red Blood Cell (RBC) Count 4.22 mill/uL (4.70-6.10); White Blood Cell (WBC) Count 8.1 thou/uL (4.8-10.8)
[2019-07-29 16:22] LABS: ALT (SGPT) 37 U/L (8-55); AST (SGOT) 30 U/L (5-34); Albumin 3.2 g/dL (3.5-5.0); Alkaline Phosphatase 91 U/L (40-110); Anion Gap 9 mmol/L (10-20); BUN (Urea Nitrogen) 16 mg/dL (8.4-25.7); Bilirubin, Total 0.3 mg/dL (0.2-1.2); CK (CPK) 21 U/L (30-200); Calc. Creatinine Clearance 0 mL/min (70-130); Calcium 8.5 mg/dL (7.8-10.44); Carbon Dioxide 34 mmol/L (22-29); Chloride 100 mmol/L (98-107); Estimated GFR-MDRD 79; Globulin 4.6 g/dL (2.4-3.5); Glucose 107 mg/dL (70-105); Lipase 98 U/L (8-78); Potassium 4.2 mmol/L (3.5-5.1); Protein, Total 7.8 g/dL (6.0-8.3); Sodium 139 mmol/L (136-145)
[2019-07-29 16:25] LABS: Bacteria/HPF 4+ HPF (None Seen); Bilirubin Negative (Negative); Blood, Urine Trace (Negative); Clarity Turbid (Clear); Glucose, Urine (Dipstick) Normal (Negative); Leukocyte 500 Leu/uL (Negative); Nitrite 2+ (Negative); Protein, Urine (Dipstick) 20 mg/dL (Neg-Trace); Squamous Epithelial 0-3 HPF (0-3); Urobilinogen Normal mg/dL (Less than 2); WBC/HPF Greater than 50 HPF (0-3)
[2019-07-29] MEDS ORDERED: cefTRIAXone\\ROCEPHIN 1 GM VIAL ONE (17:32)
[2019-07-29] MEDS ORDERED: Acetaminophen 650 MG Suppository PR PRN (20:02)
--- NOTE | 2019-07-29 21:54 | HP ---
TIME OF ASSESSMENT: 1900 hours. CHIEF COMPLAINT: Generalized weakness. HISTORY OF PRESENT ILLNESS: Mr. Reyes is a 59-year-old gentleman, who states he has had generalized weakness since being discharged from the hospital. He actually had a fall yesterday evening and called EMS who helped him up out of the shower, which is where he was, when he fell. He denies any significant head injury or injuries elsewhere. The patient reports having some urinary symptoms including urinary frequency and dysuria. He also has noted cloudy appearance to his urine. Denies having any fevers. Reports having an occasional cough but states since recent discharge from the hospital, he has not been smoking. He was admitted from July 09 to July 21 with acute respiratory failure and hypoxia/hypercapnia. The patient developed severe sepsis with septic shock associated with community-acquired pneumonia. He had a positive drug screen and states he has had no drugs since being discharged from the hospital. He has a known history of methamphetamine abuse. During his hospitalization, he was treated for UTI secondary to Klebsiella. He had an RODNEY that resolved. The patient is morbidly obese and known to have obesity hypoventilation syndrome with obstructive sleep apnea. The patient states he does not yet have a CPAP at home to use at bedtime. He apparently had been intubated during his hospitalization. He was initially being screened for placement to fpc facility/rehab; however, the patient left against medical advice, despite recommendations for rehabilitation placement. The patient states he does see the need for being placed somewhere. States that his living conditions are not great and part of this is his weakness and the fact that his home is "falling apart." ED COURSE: In the Emergency Department he underwent a urinalysis, which was notable for turbid appearance, 500 leukocytes, 2+ nitrites, trace blood, greater than 50 white cells, and 4+ bacteria. He had a normal white blood count and lactic acid was 1. He had a chest x-ray done showing prominent cardiac silhouette with pulmonary vascular congestion, but no consolidation or alveolar edema. The patient was started on IV antibiotics with Rocephin. Urine culture sent. PAST MEDICAL HISTORY: 1. Hypertension. 2. Morbid obesity. 3. Heavy tobacco use until recently. 4. History of methamphetamine abuse. 5. Anemia. 6. Lymphedema. 7. Obesity hypoventilation syndrome. 8. Obstructive sleep apnea. PAST SURGICAL HISTORY: 1. Cyst removed from his buttocks. 2. Ureter surgery. SOCIAL HISTORY: The patient currently lives at home. Recent methamphetamine use, but states he has not used since he left the hospital recently. Heavy tobacco use, but quit in recent weeks. Denies any heavy alcohol consumption. PHYSICAL EXAMINATION: GENERAL: The patient appears morbidly obese. He is resting comfortably in bed, and he is in no acute distress. VITAL SIGNS: Temperature 97.9, pulse 66, blood pressure 172/76, respirations 16, and O2 saturation 100% on 2 L of oxygen by nasal cannula. HEENT: Normocephalic and atraumatic. Pupils are equal, round, and reactive to light. Sclerae without icterus. Oropharynx is clear. Notable for dry oral mucosa. NECK: Supple. LUNGS: Clear to auscultation bilaterally without any wheezes, rales, or rhonchi. CARDIAC: Regular rate and rhythm. ABDOMEN: Soft, obese, nontender, nondistended. Normoactive bowel sounds present. No guarding or rigidity. No renal angle tenderness. EXTREMITIES: Notable for lymphedema, chronic with venous stasis changes. No pitting edema present. NEUROLOGIC: Alert and oriented x3. No neuro deficits on exam. SKIN: Warm and dry. LABORATORY DATA: White count 8.1, hemoglobin 12.1, hematocrit 38.8, platelets 283, and neutrophils 70%. Sodium 139, potassium 4.2, BUN 16, creatinine 0.87, GFR 79, glucose 107, lactic acid 1, calcium 8.5, total bilirubin 0.3, AST 30, ALT 37, alkaline phosphatase 91. CK 21, troponin I negative. Total protein 7.8, albumin 3.2, globulin 4.6, lipase 98. Urinalysis as mentioned above in HPI. Imaging as mentioned above in HPI. IMPRESSION AND PLAN: Mr. Reyes is a 59-year-old gentleman, who presents to the Emergency Department due to generalized weakness and had a recent fall yesterday. The patient had been advised rehab or fpc facility placement, but left AMA during last admission on July 21, 2019. He is being admitted for management of the followin. Urinary tract infection. Previous urinary tract infection during last admission was positive for Klebsiella. Urine culture currently pending. The patient is started on Rocephin in the emergency department, which we will continue. 2. Generalized weakness. Likely secondary to underlying urinary tract infection. The patient in need of rehab placement/SNF placement. PT/OT consulted. Rehab screening would be beneficial. 3. Obesity hypoventilation syndrome. Sats normal on 2 L of oxygen by nasal cannula. The patient says he uses oxygen as needed at home. Denies any shortness of breath. Chest x-ray without any acute changes. 4. Hypertension. Monitor blood pressure. Resume home medications once verified. 5. History of methamphetamine use. The patient states he quit after recent discharge from the hospital on July 21. Also quit smoking at that time. 6. Morbid obesity. 7. Gastrointestinal prophylaxis with famotidine. 8. Deep venous thrombosis prophylaxis. The patient with reduced mobility. However is at risk for falls. We will defer decision about DVT prophylaxis to the day team. 9. Code status, full. Surrogate decision maker is the patient's mother, Debbie Reyes. Case discussed with attending who agrees with plan of care as described above. Job ID: [id number]
[2019-07-30 05:57] LABS: #Eosinphils 0.1 thou/uL (0.0-0.7); #Lymphocytes 1.6 thou/uL (1.20-3.40); #Monocytes 0.6 thou/uL (0.11-0.59); %Basophils 0.1 % (0.0-1.0); %Eosinophils 1.9 % (0.0-10.0); %Lymphocytes 21.3 % (21.0-51.0); %Monocytes 8.6 % (0.0-10.0); %Neutrophils 68.1 % (42.0-75.0); Hemoglobin 11.9 g/dL (14.0-18.0); Mean Corpuscular HGB CONC 30.7 g/dL (32.0-36.0); Mean Corpuscular Hemoglobin 28.6 pg (27.0-31.0); Mean Corpuscular Volume 93.2 fL (78.0-98.0); Mean Platelet Volume 7.5 fL (7.4-10.4); Platelet Count 266 thou/uL (130-400); RBC Distribution Width 16.2 % (11.5-14.5); Red Blood Cell (RBC) Count 4.15 mill/uL (4.70-6.10); White Blood Cell (WBC) Count 7.4 thou/uL (4.8-10.8)
[2019-07-30] MEDS: Acetaminophen 325 MG TAB PO PRN (06:34)
[2019-07-30 07:16] LABS: Chloride 101 mmol/L (98-107); Sodium 139 mmol/L (136-145)
[2019-07-30 07:17] LABS: Calcium 8.5 mg/dL (7.8-10.44); Glucose 131 mg/dL (70-105)
[2019-07-30 07:19] LABS: Anion Gap 7 mmol/L (10-20); Carbon Dioxide 35 mmol/L (22-29)
[2019-07-30 07:21] LABS: Calc. Creatinine Clearance 294 mL/min (70-130); Estimated GFR-MDRD 87
[2019-07-30 07:22] LABS: BUN (Urea Nitrogen) 14 mg/dL (8.4-25.7)
--- NOTE | 2019-07-30 16:46 | PDOC.HOSPP ---
- Subjective Encounter Date: 07/30/19 Encounter Time: 16:45 Subjective: f/u for UTI on current Rocephin and morbid obesity with hypoventilation syndrome. - Objective Vital Signs & Weight: Vital Signs (12 hours) Temp Pulse Resp BP Pulse Ox 07/30/19 15:00 97.8 F 78 22 H 176/76 H 93 L 07/30/19 11:56 75 18 93 L 07/30/19 11:25 98.8 F 76 24 H 177/56 H 07/30/19 09:30 95 07/30/19 09:27 64 18 95 07/30/19 07:31 98.5 F 72 24 H 143/83 H 91 L Weight Admit Weight 511 lb 7.559 oz Weight 607 lb I&O: 07/29/19 07/30/19 07/31/19 06:59 06:59 06:59 Intake Total 460 Output Total 300 Balance 160 Result Diagrams: 07/30/19 05:34 07/30/19 06:54 Additional Labs: Microbiology 07/29/19 15:54 Urine voided Urine Culture - Preliminary Gram Negative Tyler Presumptive Proteus mirabilis Laboratory Tests 07/29/19 07/29/19 07/29/19 15:40 15:40 15:40 Hgb 12.1 L Lactic Acid 1.0 Magnesium B-Natriuretic Peptide Lipase 98 H 07/29/19 07/29/19 20:34 20:34 Hgb Lactic Acid Magnesium 1.9 B-Natriuretic Peptide 49.8 Lipase Hospitalist ROS - Medication Medications: Active Medications Generic Name Dose Route Start Last Admin Trade Name Freq PRN Reason Stop Dose Admin Acetaminophen 650 mg 07/29/19 20:02 07/30/19 06:34 Tylenol PO 650 mg Q4H PRN Administration Headache/Fever/Mild Pain (1-3) Sodium Chloride 10 ml 07/29/19 20:02 07/30/19 09:18 Flush - Normal Saline IVF 10 ml Q12H PRN Administration Saline Flush - Exam General Appearance: NAD, awake alert Eye: PERRL, anicteric sclera ENT: normocephalic atraumatic, no oropharyngeal lesions Neck: supple, symmetric, no JVD, no thyromegaly Heart: RRR, no murmur, no gallops, no rubs, normal peripheral pulses Heart - other findings: S1, S2 with distant heart sounds Respiratory: no rales, tachypneic Respiratory - other findings: diminished in bases bilat Gastrointestinal: soft, non-tender, non-distended, normal bowel sounds Gastrointestinal - other findings: obese Extremities: 2+ LE edema Extremities - other findings: chronic venous stasis changes Skin: normal turgor Neurological: cranial nerve grossly intact, no new deficit Musculoskeletal: normal tone, generalized weakness Psychiatric: normal affect, A&O x 3 Hosp A/P (1) UTI (urinary tract infection) Status: Acute Plan: Continue Rocephin currently, await final Ucx results with sensitivities (2) Generalized weakness Code(s): R53.1 - WEAKNESS Status: Chronic Plan: multifactorial including co-morbid status, morbid obesity, PT for mobilization (3) Obesity hypoventilation syndrome Code(s): E66.2 - MORBID (SEVERE) OBESITY WITH ALVEOLAR HYPOVENTILATION Status : Chronic Plan: O2 supplementation, likely needs CPAP and outpt sleep study (4) Acute kidney injury Code(s): N17.9 - ACUTE KIDNEY FAILURE, UNSPECIFIED Status: Acute Plan: Avoid nephrotoxic meds and limit contrast exposure (5) Morbid obesity Code(s): E66.01 - MORBID (SEVERE) OBESITY DUE TO EXCESS CALORIES Status: Chronic - Plan continue antibiotics, PT/OT, manager social responsibility, respiratory therapy, out of bed/ ambulate Continue supportive mgmt Continue Rocephin IV Resume home BP regimen PT for mobilization AM lab: BMP, CBC
[2019-07-30] MEDS: cefTRIAXone\\ROCEPHIN 2 GM in Sodium Chloride 0.9% 100 ML IVPB SCH (17:28)
[2019-07-31] MEDS: Acetaminophen 325 MG TAB PO PRN ×2 (03:57→21:41)
[2019-07-31 06:33] LABS: Anion Gap 12 mmol/L (10-20); BUN (Urea Nitrogen) 13 mg/dL (8.4-25.7); Calc. Creatinine Clearance 397 mL/min (70-130); Calcium 8.8 mg/dL (7.8-10.44); Carbon Dioxide 30 mmol/L (22-29); Chloride 101 mmol/L (98-107); Estimated GFR-MDRD Greater than 90; Glucose 88 mg/dL (70-105); Potassium 4.6 mmol/L (3.5-5.1); Sodium 138 mmol/L (136-145)
[2019-07-31 06:42] LABS: Hemoglobin 11.8 g/dL (14.0-18.0); Mean Corpuscular HGB CONC 29.6 g/dL (32.0-36.0); Mean Corpuscular Volume 94.5 fL (78.0-98.0); Mean Platelet Volume 6.6 fL (7.4-10.4); Platelet Count 240 thou/uL (130-400); RBC Distribution Width 16.1 % (11.5-14.5); Red Blood Cell (RBC) Count 4.21 mill/uL (4.70-6.10); White Blood Cell (WBC) Count 7.6 thou/uL (4.8-10.8)
[2019-07-31 08:49] LABS: Band 1 % (5-11); Eosinophils 2 % (0-10); Lymphocytes 23 % (21-51); MDiff Complete? YES; Monocytes 4 % (0-10); Neutrophil 70 % (42-75); Platelet Morphology Comment Appears Adequate; Polychromasia SLIGHT = 2-3 cells (100X) (0-2/hpf)
[2019-07-31] MEDS: Lisinopril 10 MG TAB PO SCH (09:55)
--- NOTE | 2019-07-31 13:40 | PDOC.HOSPP ---
- Subjective Encounter Date: 07/31/19 Encounter Time: 13:35 Subjective: f/u for UTI with Klebsiella spp on current Rocephin. No new issues reported. - Objective Vital Signs & Weight: Vital Signs (12 hours) Temp Pulse Resp BP BP Pulse Ox 07/31/19 11:16 98.4 F 62 18 156/77 H 96 07/31/19 09:55 95 07/31/19 07:28 97.9 F 62 18 155/70 H 95 07/31/19 05:00 132/77 07/31/19 04:27 98.4 F 73 20 179/79 H 94 L Weight Admit Weight 511 lb 7.559 oz Weight 607 lb I&O: 07/30/19 07/31/19 08/01/19 06:59 06:59 06:59 Intake Total 460 1390 Output Total 300 Balance 160 1390 Result Diagrams: 07/31/19 05:55 07/31/19 05:55 Additional Labs: Microbiology 07/29/19 15:54 Urine voided Urine Culture - Final Klebsiella pneumoniae ssp pneu Presumptive Proteus mirabilis 07/29/19 15:54 Urine voided Urine Culture - Preliminary Gram Negative Tyler Presumptive Proteus mirabilis Laboratory Tests 07/29/19 07/29/19 07/29/19 15:40 15:40 15:40 Hgb 12.1 L Lactic Acid 1.0 Magnesium B-Natriuretic Peptide Lipase 98 H 07/29/19 07/29/19 20:34 20:34 Hgb Lactic Acid Magnesium 1.9 B-Natriuretic Peptide 49.8 Lipase Hospitalist ROS - Medication Medications: Active Medications Generic Name Dose Route Start Last Admin Trade Name Freq PRN Reason Stop Dose Admin Acetaminophen 650 mg 07/29/19 20:02 07/31/19 03:57 Tylenol PO 650 mg Q4H PRN Administration Headache/Fever/Mild Pain (1-3) Ceftriaxone Sodium 2 gm/ 100 mls @ 200 mls/hr 07/30/19 17:45 07/30/19 17:28 Sodium Chloride IVPB 100 mls Q24HR MOHAN Administration Lisinopril 10 mg 07/31/19 09:00 07/31/19 09:55 Zestril PO 10 mg DAILY MOHAN Administration Sodium Chloride 10 ml 07/29/19 20:02 07/30/19 09:18 Flush - Normal Saline IVF 10 ml Q12H PRN Administration Saline Flush - Exam General Appearance: NAD, awake alert Eye: PERRL, anicteric sclera ENT: normocephalic atraumatic, no oropharyngeal lesions Neck: supple, symmetric, no JVD, no thyromegaly Heart: RRR, no murmur, no gallops, no rubs Respiratory: CTAB Respiratory - other findings: diminished in bases Gastrointestinal: soft, non-tender, non-distended, normal bowel sounds Gastrointestinal - other findings: obese Extremities - other findings: chronic LE venous stasis changes Skin: normal turgor Neurological: cranial nerve grossly intact, no new deficit Musculoskeletal: normal tone, generalized weakness Psychiatric: normal affect, A&O x 3 Hosp A/P (1) UTI (urinary tract infection) Status: Acute Plan: Klebsiella spp, continue Rocephin IV (2) Generalized weakness Code(s): R53.1 - WEAKNESS Status: Chronic Plan: PT/OT for mobilization, SNF options (3) Obesity hypoventilation syndrome Code(s): E66.2 - MORBID (SEVERE) OBESITY WITH ALVEOLAR HYPOVENTILATION Status : Chronic (4) Acute kidney injury Code(s): N17.9 - ACUTE KIDNEY FAILURE, UNSPECIFIED Status: Acute Plan: Resolving, avoid nephrotoxic meds and limit contrast exposure (5) Morbid obesity Code(s): E66.01 - MORBID (SEVERE) OBESITY DUE TO EXCESS CALORIES Status: Chronic - Plan continue antibiotics, PT/OT, nursing home social worker Continue supportive mgmt Continue Rocephin IV Resume home BP regimen PT for mobilization SNF/Swing bed options
[2019-07-31] MEDS: cefTRIAXone\\ROCEPHIN 2 GM in Sodium Chloride 0.9% 100 ML IVPB SCH (18:07)
[2019-08-01] MEDS: Lisinopril 10 MG TAB PO SCH (08:06)
[2019-08-01 14:02] VITALS: BMI 82.3
--- NOTE | 2019-08-01 15:29 | PDOC.HOSPP ---
- Subjective Encounter Date: 08/01/19 Encounter Time: 15:30 Subjective: f/u for Klebsiella spp UTI on Rocephin. Feels better overall. Doesn't like current puree diet texture. - Objective Vital Signs & Weight: Vital Signs (12 hours) Temp Pulse Resp BP BP BP Pulse Ox 08/01/19 12:00 98.0 F 65 20 155/83 H 94 L 08/01/19 08:06 130/85 08/01/19 08:00 98.4 F 69 20 130/85 92 L 08/01/19 05:30 156/89 H 93 L 08/01/19 04:00 97.9 F 73 20 179/104 H Weight Admit Weight 511 lb 7.559 oz Weight 607 lb I&O: 07/31/19 08/01/19 08/02/19 06:59 06:59 06:59 Intake Total 1390 1830 Balance 1390 1830 Result Diagrams: 07/31/19 05:55 07/31/19 05:55 Additional Labs: Microbiology 07/29/19 15:54 Urine voided Urine Culture - Final Klebsiella pneumoniae ssp pneu Presumptive Proteus mirabilis 07/29/19 15:54 Urine voided Urine Culture - Preliminary Gram Negative Tyler Presumptive Proteus mirabilis Laboratory Tests 07/29/19 07/29/19 07/29/19 15:40 15:40 15:40 Hgb 12.1 L Lactic Acid 1.0 Magnesium B-Natriuretic Peptide Lipase 98 H 07/29/19 07/29/19 20:34 20:34 Hgb Lactic Acid Magnesium 1.9 B-Natriuretic Peptide 49.8 Lipase Hospitalist ROS - Medication Medications: Active Medications Generic Name Dose Route Start Last Admin Trade Name Freq PRN Reason Stop Dose Admin Acetaminophen 650 mg 07/29/19 20:02 07/31/19 21:41 Tylenol PO 650 mg Q4H PRN Administration Headache/Fever/Mild Pain (1-3) Ceftriaxone Sodium 2 gm/ 100 mls @ 200 mls/hr 07/30/19 17:45 07/31/19 18:07 Sodium Chloride IVPB 100 mls Q24HR MOHAN Administration Lisinopril 10 mg 07/31/19 09:00 08/01/19 08:06 Zestril PO 10 mg DAILY MOHAN Administration Sodium Chloride 10 ml 07/29/19 20:02 07/30/19 09:18 Flush - Normal Saline IVF 10 ml Q12H PRN Administration Saline Flush - Exam General Appearance: NAD, awake alert Eye: PERRL, anicteric sclera ENT: normocephalic atraumatic, no oropharyngeal lesions Neck: supple, symmetric, no JVD, no thyromegaly Heart: RRR, no murmur, no gallops, no rubs, normal peripheral pulses Respiratory: no rales, no ronchi, tachypneic Respiratory - other findings: diminished in bases Gastrointestinal: soft, non-tender, non-distended, normal bowel sounds, no palpable masses Gastrointestinal - other findings: obese Extremities: 2+ LE edema Extremities - other findings: chronic venous stasis changes bilat Skin: normal turgor Neurological: cranial nerve grossly intact, no new deficit Musculoskeletal: normal tone, generalized weakness Psychiatric: normal affect, A&O x 3 Hosp A/P (1) UTI (urinary tract infection) Status: Acute Plan: Continue Rocephin another 24h then de-escalate (2) Generalized weakness Code(s): R53.1 - WEAKNESS Status: Chronic Plan: PT/OT for mobilization, fall risk precautions (3) Obesity hypoventilation syndrome Code(s): E66.2 - MORBID (SEVERE) OBESITY WITH ALVEOLAR HYPOVENTILATION Status : Chronic Plan: O2 to maintain sats >90%, outpt sleep study for CPAP (4) Acute kidney injury Code(s): N17.9 - ACUTE KIDNEY FAILURE, UNSPECIFIED Status: Acute Plan: Improved, avoid nephrotoxic meds and limit contrast exposure (5) Morbid obesity Code(s): E66.01 - MORBID (SEVERE) OBESITY DUE TO EXCESS CALORIES Status: Chronic - Plan continue antibiotics, PT/OT, social work instructor, respiratory therapy Continue supportive mgmt Continue Rocephin IV another 24h then de-escalate Resume home BP regimen PT for mobilization SNF/Swing bed options
[2019-08-01] MEDS: cefTRIAXone\\ROCEPHIN 2 GM in Sodium Chloride 0.9% 100 ML IVPB SCH (17:08)
[2019-08-02] MEDS: Lisinopril 10 MG TAB PO SCH (10:14)
--- NOTE | 2019-08-02 15:35 | PDOC.HOSPP ---
- Subjective Encounter Date: 08/02/19 Encounter Time: 15:15 Subjective: f/u for UTI with Klebsiella spp on Ceftriaxone. Feels ok overall. No new complaints. Awaiting SNF options. - Objective Vital Signs & Weight: Vital Signs (12 hours) Temp Pulse Resp BP BP Pulse Ox 08/02/19 10:14 148/70 H 08/02/19 08:00 96 08/02/19 04:00 98.6 F 69 20 161/73 H 96 Weight Admit Weight 511 lb 7.559 oz Weight 607 lb I&O: 08/01/19 08/02/19 08/03/19 06:59 06:59 06:59 Intake Total 1830 850 Output Total 1200 Balance 1830 -350 Result Diagrams: 07/31/19 05:55 07/31/19 05:55 Additional Labs: Microbiology 07/29/19 15:54 Urine voided Urine Culture - Final Klebsiella pneumoniae ssp pneu Presumptive Proteus mirabilis 07/29/19 15:54 Urine voided Urine Culture - Preliminary Gram Negative Tyler Presumptive Proteus mirabilis Laboratory Tests 07/29/19 07/29/19 07/29/19 15:40 15:40 15:40 Hgb 12.1 L Lactic Acid 1.0 Magnesium B-Natriuretic Peptide Lipase 98 H 07/29/19 07/29/19 20:34 20:34 Hgb Lactic Acid Magnesium 1.9 B-Natriuretic Peptide 49.8 Lipase Hospitalist ROS - Medication Medications: Active Medications Generic Name Dose Route Start Last Admin Trade Name Freq PRN Reason Stop Dose Admin Acetaminophen 650 mg 07/29/19 20:02 07/31/19 21:41 Tylenol PO 650 mg Q4H PRN Administration Headache/Fever/Mild Pain (1-3) Ceftriaxone Sodium 2 gm/ 100 mls @ 200 mls/hr 07/30/19 17:45 08/01/19 17:08 Sodium Chloride IVPB 100 mls Q24HR MOHAN Administration Lisinopril 10 mg 07/31/19 09:00 08/02/19 10:14 Zestril PO 10 mg DAILY MOHAN Administration Sodium Chloride 10 ml 07/29/19 20:02 07/30/19 09:18 Flush - Normal Saline IVF 10 ml Q12H PRN Administration Saline Flush - Exam General Appearance: NAD, awake alert Eye: PERRL, anicteric sclera ENT: normocephalic atraumatic, no oropharyngeal lesions Neck: supple, symmetric, no JVD, no thyromegaly Heart: RRR, no murmur, no gallops, no rubs, normal peripheral pulses Heart - other findings: S1, S2 Respiratory: CTAB, normal chest expansion, tachypneic Respiratory - other findings: diminished in bases Gastrointestinal: soft, non-tender, non-distended, normal bowel sounds, no palpable masses Gastrointestinal - other findings: obese Extremities: no cyanosis, 2+ LE edema Extremities - other findings: chronic LE venous stasis changes Skin: normal turgor Neurological: cranial nerve grossly intact, no new deficit Musculoskeletal: normal tone, generalized weakness Psychiatric: normal affect, A&O x 3 Hosp A/P (1) UTI (urinary tract infection) Status: Acute Plan: Continue Rocephin IV (2) Generalized weakness Code(s): R53.1 - WEAKNESS Status: Chronic Plan: PT/OT for mobilization (3) Obesity hypoventilation syndrome Code(s): E66.2 - MORBID (SEVERE) OBESITY WITH ALVEOLAR HYPOVENTILATION Status : Chronic (4) Acute kidney injury Code(s): N17.9 - ACUTE KIDNEY FAILURE, UNSPECIFIED Status: Acute (5) Morbid obesity Code(s): E66.01 - MORBID (SEVERE) OBESITY DUE TO EXCESS CALORIES Status: Chronic - Plan continue antibiotics, PT/OT, social science professor, respiratory therapy, DVT proph w/ SCDs Continue supportive mgmt Continue Rocephin IV another 24h then de-escalate Resume home BP regimen PT for mobilization SNF/Swing bed options
[2019-08-02] MEDS: cefTRIAXone\\ROCEPHIN 2 GM in Sodium Chloride 0.9% 100 ML IVPB SCH (18:37)
[2019-08-03] MEDS: Lisinopril 10 MG TAB PO SCH (10:03)
--- NOTE | 2019-08-03 13:42 | EKG ---
Test Reason : Blood Pressure : / mmHG Vent. Rate : 065 BPM Atrial Rate : 065 BPM P-R Int : 146 ms QRS Dur : 106 ms QT Int : 410 ms P-R-T Axes : -14 -17 003 degrees QTc Int : 426 ms Normal sinus rhythm Normal ECG Confirmed by NYDIA WALTERS ([id number]), research editor THERESE BUNDY ([id number] on 08/03/2019 1:42:31 PM Referred By: Confirmed By:NYDIA Coelho
--- NOTE | 2019-08-03 13:46 | PDOC.HOSPP ---
- Subjective Encounter Date: 08/03/19 Encounter Time: 14:30 Subjective: Patient with some abdominal cramps on and off. No other complaints. - Objective Vital Signs & Weight: Vital Signs (12 hours) Temp Pulse Resp BP BP Pulse Ox 08/03/19 10:03 148/70 H 08/03/19 08:00 92 L 08/03/19 07:19 98.6 F 72 22 H 157/78 H 92 L Weight Admit Weight 511 lb 7.559 oz Weight 607 lb I&O: 08/02/19 08/03/19 08/04/19 06:59 06:59 07:59 Intake Total 850 840 240 Output Total 1200 800 Balance -350 40 240 Result Diagrams: 07/31/19 05:55 07/31/19 05:55 Hospitalist ROS - Review of Systems Constitutional: denies: fever, chills Respiratory: denies: cough, shortness of breath Cardiovascular: denies: chest pain, palpitations Gastrointestinal: reports: abdominal pain. denies: nausea, vomiting, diarrhea, constipation Genitourinary: denies: dysuria, hematuria - Medication Medications: Active Medications Generic Name Dose Route Start Last Admin Trade Name Freq PRN Reason Stop Dose Admin Acetaminophen 650 mg 07/29/19 20:02 07/31/19 21:41 Tylenol PO 650 mg Q4H PRN Administration Headache/Fever/Mild Pain (1-3) Ceftriaxone Sodium 2 gm/ 100 mls @ 200 mls/hr 07/30/19 17:45 08/02/19 18:37 Sodium Chloride IVPB 100 mls Q24HR MOHAN Administration Lisinopril 10 mg 07/31/19 09:00 08/03/19 10:03 Zestril PO 10 mg DAILY MOHAN Administration Sodium Chloride 10 ml 07/29/19 20:02 07/30/19 09:18 Flush - Normal Saline IVF 10 ml Q12H PRN Administration Saline Flush - Exam General Appearance: NAD, awake alert General - other findings: morbidly obese ENT: moist mucosa Heart: RRR, no murmur, no gallops, no rubs Respiratory: CTAB, no wheezes, no rales, no ronchi Gastrointestinal: soft, non-tender, non-distended, normal bowel sounds Psychiatric: normal affect, normal behavior, A&O x 3 Hosp A/P (1) UTI (urinary tract infection) Status: Acute (2) Generalized weakness Code(s): R53.1 - WEAKNESS Status: Chronic (3) Morbid obesity Code(s): E66.01 - MORBID (SEVERE) OBESITY DUE TO EXCESS CALORIES Status: Chronic (4) Obesity hypoventilation syndrome Code(s): E66.2 - MORBID (SEVERE) OBESITY WITH ALVEOLAR HYPOVENTILATION Status : Chronic - Plan Switch to oral Cipro for Klebsiella UTI. SNF placement pending
[2019-08-03] MEDS: Ciprofloxacin 500 MG TAB PO SCH (22:00)
[2019-08-04] MEDS: Ciprofloxacin 500 MG TAB PO SCH ×2 (06:14→21:31)
[2019-08-04] MEDS: Lisinopril 10 MG TAB PO SCH (13:11)
--- NOTE | 2019-08-04 21:41 | PDOC.HOSPP ---
- Subjective Encounter Date: 08/04/19 Encounter Time: 11:15 Subjective: pt up in bed does not have any complains. He does want a electric chair. - Objective Vital Signs & Weight: Vital Signs (12 hours) Temp Pulse Resp BP BP Pulse Ox 08/04/19 13:11 134/79 08/04/19 12:16 98.3 F 74 20 134/79 95 Weight Admit Weight 511 lb 7.559 oz Weight 607 lb I&O: 08/03/19 08/04/19 08/05/19 05:59 06:59 06:59 Intake Total 720 Output Total Balance 720 Result Diagrams: 07/31/19 05:55 07/31/19 05:55 Hospitalist ROS - Review of Systems Cardiovascular: denies: chest pain, palpitations, orthopnea, paroxysmal noc. dyspnea, edema, light headedness, other Gastrointestinal: denies: nausea, vomiting, abdominal pain, diarrhea, constipation, melena, hematochezia, other Genitourinary: denies: dysuria, frequency, incontinence, hematuria, retention, other - Medication Medications: Active Medications Generic Name Dose Route Start Last Admin Trade Name Freq PRN Reason Stop Dose Admin Acetaminophen 650 mg 07/29/19 20:02 07/31/19 21:41 Tylenol PO 650 mg Q4H PRN Administration Headache/Fever/Mild Pain (1-3) Ciprofloxacin 500 mg 08/03/19 20:00 08/04/19 21:31 Cipro PO 500 mg 0600,2000 MOHAN Administration Lisinopril 10 mg 07/31/19 09:00 08/04/19 13:11 Zestril PO 10 mg DAILY MOHAN Administration Sodium Chloride 10 ml 07/29/19 20:02 07/30/19 09:18 Flush - Normal Saline IVF 10 ml Q12H PRN Administration Saline Flush - Exam Neck: negative: supple, symmetric, no JVD, no thyromegaly, no lymphadenopathy, no carotid bruit, JVD Heart: negative: RRR, no murmur, no gallops, no rubs, normal peripheral pulses, irregular, diminshed peripheral pulses, murmur present, II/IV, III/IV Respiratory: negative: CTAB, no wheezes, no rales, no ronchi, normal chest expansion, no tachypnea, normal percussion, rales, rhonchi, tachypneic, wheezes Gastrointestinal: negative: soft, non-tender, non-distended, normal bowel sounds , no palpable masses, no hepatomegaly, no splenomegaly, no bruit, no guarding, no rigidity, tender to palpation, distended, diminished bowl sounds, voluntary guarding Extremities: 2+ LE edema Hosp A/P (1) UTI (urinary tract infection) Status: Acute (2) Generalized weakness Code(s): R53.1 - WEAKNESS Status: Chronic (3) Morbid obesity Code(s): E66.01 - MORBID (SEVERE) OBESITY DUE TO EXCESS CALORIES Status: Chronic (4) Obesity hypoventilation syndrome Code(s): E66.2 - MORBID (SEVERE) OBESITY WITH ALVEOLAR HYPOVENTILATION Status : Chronic - Plan on oral cirpo, snf pending. will add dvt ppx.
[2019-08-05] MEDS: Ciprofloxacin 500 MG TAB PO SCH ×2 (05:45→20:01)
[2019-08-05] MEDS: Enoxaparin Sodium 40 MG/0.4 ML SYRINGE SC SCH (08:41)
--- NOTE | 2019-08-05 10:11 | PDOC.HOSPP ---
- Subjective Encounter Date: 08/05/19 Encounter Time: 11:30 Subjective: Patient reports strength slowing getting a bit better. No fever. No other complaints. - Objective Vital Signs & Weight: Vital Signs (12 hours) Temp Pulse Resp BP BP Pulse Ox 08/05/19 08:00 98.6 F 72 20 109/59 L 95 08/05/19 04:00 70 94 L 08/05/19 00:00 98.6 F 69 20 110/64 93 L Weight Admit Weight 511 lb 7.559 oz Weight 607 lb I&O: 08/04/19 08/05/19 08/06/19 06:59 06:59 06:59 Intake Total 720 Balance 720 Result Diagrams: 07/31/19 05:55 07/31/19 05:55 Hospitalist ROS - Review of Systems Constitutional: denies: fever, chills Respiratory: denies: cough, dry, shortness of breath Cardiovascular: denies: chest pain, palpitations, orthopnea Gastrointestinal: denies: nausea, vomiting, abdominal pain Genitourinary: denies: dysuria, hematuria - Medication Medications: Active Medications Generic Name Dose Route Start Last Admin Trade Name Freq PRN Reason Stop Dose Admin Acetaminophen 650 mg 07/29/19 20:02 07/31/19 21:41 Tylenol PO 650 mg Q4H PRN Administration Headache/Fever/Mild Pain (1-3) Ciprofloxacin 500 mg 08/03/19 20:00 08/05/19 05:45 Cipro PO 500 mg 0600,2000 MOHAN Administration Enoxaparin Sodium 40 mg 08/05/19 09:00 08/05/19 08:41 Lovenox SC 40 mg 0900 MOHAN Administration Lisinopril 10 mg 07/31/19 09:00 08/04/19 13:11 Zestril PO 10 mg DAILY MOHAN Administration Sodium Chloride 10 ml 07/29/19 20:02 07/30/19 09:18 Flush - Normal Saline IVF 10 ml Q12H PRN Administration Saline Flush - Exam General Appearance: NAD, awake alert General - other findings: morbid obesity ENT: moist mucosa Heart: RRR, no murmur, no gallops, no rubs Respiratory: CTAB, no wheezes, no rales, no ronchi Gastrointestinal: soft, non-tender, non-distended, normal bowel sounds Psychiatric: normal affect, normal behavior, A&O x 3 Hosp A/P (1) UTI (urinary tract infection) Status: Acute (2) Generalized weakness Code(s): R53.1 - WEAKNESS Status: Chronic (3) Morbid obesity Code(s): E66.01 - MORBID (SEVERE) OBESITY DUE TO EXCESS CALORIES Status: Chronic (4) Obesity hypoventilation syndrome Code(s): E66.2 - MORBID (SEVERE) OBESITY WITH ALVEOLAR HYPOVENTILATION Status : Chronic - Plan Switched to oral Cipro for Klebsiella UTI. SNF placement pending, possibly swing bed
[2019-08-05] MEDS: Lisinopril 10 MG TAB PO SCH (12:13)
[2019-08-06] MEDS: Acetaminophen 325 MG TAB PO PRN (00:02)
[2019-08-06] MEDS: Ciprofloxacin 500 MG TAB PO SCH ×2 (05:36→20:24)
[2019-08-06] MEDS: Enoxaparin Sodium 40 MG/0.4 ML SYRINGE SC SCH (08:06)
[2019-08-06] MEDS: Lisinopril 10 MG TAB PO SCH (08:07)
--- NOTE | 2019-08-06 09:29 | PDOC.HOSPP ---
- Subjective Encounter Date: 08/06/19 Encounter Time: 12:20 Subjective: Patient getting a little stronger. No Dysuria or hematuria. Awaiting swing bed. - Objective Vital Signs & Weight: Vital Signs (12 hours) Temp Pulse Resp BP BP Pulse Ox 08/06/19 08:07 130/73 08/06/19 08:05 98.1 F 70 18 111/62 93 L 08/06/19 08:03 93 L Weight Admit Weight 511 lb 7.559 oz Weight 607 lb I&O: 08/05/19 08/06/19 08/07/19 06:59 06:59 06:59 Intake Total 720 1550 Balance 720 1550 Result Diagrams: 07/31/19 05:55 07/31/19 05:55 Hospitalist ROS - Review of Systems Constitutional: denies: fever, chills Respiratory: denies: cough, shortness of breath Cardiovascular: denies: chest pain, palpitations Gastrointestinal: denies: nausea, vomiting, abdominal pain Genitourinary: denies: dysuria, hematuria - Medication Medications: Active Medications Generic Name Dose Route Start Last Admin Trade Name Freq PRN Reason Stop Dose Admin Acetaminophen 650 mg 07/29/19 20:02 08/06/19 00:02 Tylenol PO 650 mg Q4H PRN Administration Headache/Fever/Mild Pain (1-3) Ciprofloxacin 500 mg 08/03/19 20:00 08/06/19 05:36 Cipro PO 500 mg 06,1999 MOHAN Administration Enoxaparin Sodium 40 mg 08/05/19 09:00 08/06/19 08:06 Lovenox SC 40 mg 0900 MOHAN Administration Lisinopril 10 mg 07/31/19 09:00 08/06/19 08:07 Zestril PO 10 mg DAILY MOHAN Administration Sodium Chloride 10 ml 07/29/19 20:02 07/30/19 09:18 Flush - Normal Saline IVF 10 ml Q12H PRN Administration Saline Flush - Exam General Appearance: NAD, awake alert General - other findings: morbidly obese Heart: RRR, no murmur, no gallops, no rubs Respiratory: CTAB, no wheezes, no rales, no ronchi Gastrointestinal: soft, non-tender, non-distended, normal bowel sounds Psychiatric: normal affect, normal behavior, A&O x 3 Hosp A/P (1) UTI (urinary tract infection) Status: Acute (2) Generalized weakness Code(s): R53.1 - WEAKNESS Status: Chronic (3) Morbid obesity Code(s): E66.01 - MORBID (SEVERE) OBESITY DUE TO EXCESS CALORIES Status: Chronic (4) Obesity hypoventilation syndrome Code(s): E66.2 - MORBID (SEVERE) OBESITY WITH ALVEOLAR HYPOVENTILATION Status : Chronic Plan: need outpatient sleep study to assess for CPAP need - Plan Switched to oral Cipro for Klebsiella UTI. SNF placement pending, possibly swing bed
[2019-08-07] MEDS: Ciprofloxacin 500 MG TAB PO SCH ×2 (05:49→19:40)
[2019-08-07] MEDS: Lisinopril 10 MG TAB PO SCH (08:26)
[2019-08-07] MEDS: Enoxaparin Sodium 40 MG/0.4 ML SYRINGE SC SCH (08:27)
--- NOTE | 2019-08-07 10:12 | PDOC.HOSPP ---
- Subjective Encounter Date: 08/07/19 Encounter Time: 13:20 Subjective: Patient without complaints today. Awaiting swing bed. - Objective Vital Signs & Weight: Vital Signs (12 hours) Temp Pulse Resp BP BP Pulse Ox 08/07/19 08:26 130/73 08/07/19 08:00 94 L 08/07/19 07:51 98.2 F 71 18 113/78 94 L Weight Admit Weight 511 lb 7.559 oz Weight 607 lb I&O: 08/06/19 08/07/19 08/08/19 06:59 06:59 06:59 Intake Total 1550 800 360 Balance 1550 800 360 Result Diagrams: 07/31/19 05:55 07/31/19 05:55 Hospitalist ROS - Review of Systems Constitutional: denies: fever, chills Respiratory: denies: cough, shortness of breath Cardiovascular: denies: chest pain, palpitations Gastrointestinal: denies: nausea, vomiting, abdominal pain Genitourinary: denies: dysuria, hematuria - Medication Medications: Active Medications Generic Name Dose Route Start Last Admin Trade Name Freq PRN Reason Stop Dose Admin Acetaminophen 650 mg 07/29/19 20:02 08/06/19 00:02 Tylenol PO 650 mg Q4H PRN Administration Headache/Fever/Mild Pain (1-3) Ciprofloxacin 500 mg 08/03/19 20:00 08/07/19 05:49 Cipro PO 500 mg 599,1999 MOHAN Administration Enoxaparin Sodium 40 mg 08/05/19 09:00 08/07/19 08:27 Lovenox SC 40 mg 0900 MOHAN Administration Lisinopril 10 mg 07/31/19 09:00 08/07/19 08:26 Zestril PO 10 mg DAILY MOHAN Administration Sodium Chloride 10 ml 07/29/19 20:02 07/30/19 09:18 Flush - Normal Saline IVF 10 ml Q12H PRN Administration Saline Flush - Exam General Appearance: NAD, awake alert General - other findings: morbidly obese ENT: moist mucosa Heart: RRR, no murmur, no gallops, no rubs Respiratory: CTAB, no wheezes, no rales, no ronchi Gastrointestinal: soft, non-tender, non-distended, normal bowel sounds Psychiatric: normal affect, normal behavior, A&O x 3 Hosp A/P (1) UTI (urinary tract infection) Status: Acute (2) Generalized weakness Code(s): R53.1 - WEAKNESS Status: Chronic (3) Morbid obesity Code(s): E66.01 - MORBID (SEVERE) OBESITY DUE TO EXCESS CALORIES Status: Chronic (4) Obesity hypoventilation syndrome Code(s): E66.2 - MORBID (SEVERE) OBESITY WITH ALVEOLAR HYPOVENTILATION Status : Chronic - Plan Switched to oral Cipro for Klebsiella UTI. Complete 14 day course due to recurrence (last day 08/11/2019) SNF placement pending, possibly swing bed
[2019-08-07 20:09] VITALS: BP 144/86; TEMP 98.3
--- NOTE | 2019-08-08 13:04 | DIS ---
DATE OF ADMISSION: 07/29/2019 DATE OF DISCHARGE: 08/07/2019 PRIMARY CARE PHYSICIAN: Anjana Gar. REASON FOR ADMISSION: Generalized weakness and urinary tract infection. DIAGNOSES AT DISCHARGE: 1. Urinary tract infection, recurrent with Klebsiella pneumoniae. 2. Generalized weakness. 3. Morbid obesity with a BMI of 82. 4. Obesity hypoventilation syndrome with likely obstructive sleep apnea. PROCEDURES: None. CONSULTATIONS: None. SUMMARY OF HOSPITAL COURSE: This is a 59-year-old morbidly obese white male, who was recently in the hospital for Klebsiella pneumoniae urinary tract infection as well as pneumonia with severe septic shock. Also had a history of drug use, but states that he has not used any since discharge from the hospital. He had been recommended to go to a custodial facility, but instead left against medical advice. The patient became weaker at home, started having urinary symptoms including urinary frequency and dysuria and cloudy urine. Eventually, had to call EMS to help him get up out of the shower after a fall and so, he came into the emergency room. He was found to have a recurrent urinary tract infection, eventually grew back Klebsiella pneumoniae sensitive to antibiotics. The patient was put on IV antibiotics first. He had had significant improvement in symptoms. Eventually, switched over to oral Cipro. He did have physical therapy during his hospitalization and eventually agreed to custodial placement. Currently, we are arranging a swing bed for him in [place] and anticipates he will be discharged there later today. DISCHARGE MANAGEMENT: Discharged to swing bed in [place]. ACTIVITY: As tolerated. DIET: Healthy heart diet. THERAPY: Occupational and physical therapy. EQUIPMENT AND SUPPLIES: Oxygen and nebulizer treatments. FOLLOWUP: Follow up with primary care physician in 1 to 2 weeks. DISCHARGE MEDICATIONS: 1. Ciprofloxacin 500 mg twice a day until the last day of 08/11/2019 for full 14 days of antibiotics due to his previously treatment failure. 2. Benazepril 10 mg daily. 3. DuoNeb q.6 hours as needed. Job ID: [id number]
--- NOTE | 2019-08-09 08:03 | PQF ---
NICOLE QUIÑONEZ RYAN ANDREW MD [id number] CLINICAL DOCUMENTATION CLARIFICATION FORM: POST DISCHARGE Addendum to original discharge summary date: ____ Late entry note date: __ DATE: 08/09/2019 ATTN: Ravi Scott Please exercise your independent, professional judgment in responding to the clarification form. Clinical indicators are provided on the bottom of this form for your review Please check appropriate box(es): [ ] Sepsis due to UTI [ ] Severe sepsis with acute organ dysfunction of: (Examples: respiratory failure, encephalopathy, acute kidney failure, other) [ ] Septic Shock [ X ] Localized infection without sepsis [ ] Other diagnosis [ ] Unable to determine In addition, please specify: Present on Admission (POA): [ X ] Yes [ ] No [ ] Unable to determine For continuity of documentation, please document condition throughout progress notes and discharge summary. Thank You. CLINICAL INDICATORS - SIGNS / SYMPTOMS / LABS Laboratory 3 WBC 8.1; 7.4; 7.6, BAND 1, Plt count 283, Monocytes 9.3, Eosinophils 2.1 Microbiology 3 Positive with Klebsiella pneumoniae Vital signs 07/28 153/88, Pulse 66, Resp 17, Temp 98 ED notes p1 3 Yes, pt did meet at least 1 criteria H&P p1 07/28 Magdalena FAULKNER He was admitted from Jul 09-jul 21 with respiratory failure and hypoxic a/hypercapnia. The patient developed severe sepsis with septic shock associated with CAP. H&P p1 07/28 Magdalena FAULKNER INED he underwent a urinalysis, which was notable for yubid appearance, 500 leukocytes, 2+ nitriates, trace blood, greater than 50 white cells and 4+ bacteria. H&P p3 3/ Nichols PA-C Previous UTI during last admission was positive for klebsiella H&P p3 3 Magdalena PA-C Generalized weakness likely secondary to underlying UTI PN p4 3 Acute kidney injury RISK FACTORS ED Notes p2 3/2 former Smoker H&P p1 3/2 History of Septic shock H&P p1 3/ HT H&P p1 3/ Morbid Obesity H&P p1 3/ [facility] H&P p3 3/2 UTI TREATMENTS: JUL 29 Tylenol 650mg po JUL 29 IVF NS 1L JUL 29 IV Ceftriaxone 2gm JUL 29 Ciprofloxacin 500mg po Urine culture 07/28 Respiratory panel 07/28 Oxygen 2L (This form is maintained as a part of the permanent medical record) 2014 [employer] All Rights Reserved [email or web address]
== END 2019-08-07 23:26 | disposition swing bed (61) | DRG 690 ==
LOC: ERS 15:17 → T4-A 19:13
PROVIDERS: ADMIT Emergency Medicine; ATTEND Family Medicine
DX: N39.0 Urinary tract infection, site not specified (principal); E66.2 Morbid (severe) obesity with alveolar hypoventilation; Z68.45 Body mass index [BMI] 70 or greater, adult; N17.9 Acute kidney failure, unspecified; B96.1 Klebsiella pneumoniae [K. pneumoniae] as the cause of diseases classified elsewhere; I10 Essential (primary) hypertension; Z87.440 Personal history of urinary (tract) infections; Z87.891 Personal history of nicotine dependence; Z99.81 Dependence on supplemental oxygen
CPT/HCPCS: 36415; 71045; 80048; 80053; 81003; 81015; 82550; 83605; 83690; 83735; 83880; 84484; 85007; 85025; 85027; 87077; 87086; 87186; 93005; 96361; 96365; J0696; J1650; J3490

== ENCOUNTER 2020-01-31 16:30 | Outpatient (CLI) | payer MEDICARE, MEDICAID | END 2020-01-31 16:31 | disposition home or self-care (01) | LOC: SLEEPLAB 16:30 | PROVIDERS: ATTEND Physician Assistant | DX: G47.33 Obstructive sleep apnea (adult) (pediatric) (principal); R06.83 Snoring; K21.9 Gastro-esophageal reflux disease without esophagitis; G47.00 Insomnia, unspecified; R09.02 Hypoxemia; I10 Essential (primary) hypertension | CPT/HCPCS: 95806 ==

== ENCOUNTER 2020-03-02 19:00 | Outpatient (CLI) | payer MEDICARE, MEDICAID | END 2020-03-02 19:01 | disposition home or self-care (01) | LOC: SLEEPLAB 19:00 | PROVIDERS: ATTEND Physician Assistant | DX: G47.33 Obstructive sleep apnea (adult) (pediatric) (principal); R06.83 Snoring; G47.10 Hypersomnia, unspecified; I10 Essential (primary) hypertension; K21.9 Gastro-esophageal reflux disease without esophagitis; R09.02 Hypoxemia; E66.9 Obesity, unspecified; Z68.45 Body mass index [BMI] 70 or greater, adult | CPT/HCPCS: 95811 ==

== ENCOUNTER 2020-07-06 10:05 | Day surgery (SDC) | payer MEDICARE, MEDICAID ==
[2020-07-06] MEDS ORDERED: PROPOFOL 200 MG/20 ML VIAL ONE (10:10)
[2020-07-06] MEDS ORDERED: Ketamine 50 MG/ML (10ML VIAL) ONE (11:13)
[2020-07-06] MEDS ORDERED: Midazolam HCl 2 mg/2 ml Vial ONE (11:13)
--- NOTE | 2020-07-06 16:30 | OP ---
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 PROCEDURES PERFORMED: Colonoscopy with biopsy and submucosal injection. INDICATIONS: A 60-year-old man, here for first colon cancer screening exam. He has a family history of colon cancer in both his mother and maternal uncle. This is his first colonoscopy. MEDICATIONS: See Anesthesia record. FINDINGS: After discussion of the risks, benefits, and alternatives of the procedure, informed consent was obtained and witnessed. Pre-endoscopic cardiopulmonary examination was satisfactory. Time-out was performed before sedation was achieved. Sedation was achieved with Anesthesia assistance in the endoscopy unit. Digital rectal exam was performed, which was unremarkable. A Pentax adult colonoscope was inserted into the anus and passed forward to the cecum in the usual fashion. The cecal base was identified by the appendiceal orifice as well as the ileocecal valve. The terminal ileum was not intubated. The colonoscope was slowly withdrawn in a gradual and circumferential manner with careful examination of the entire colonic mucosa. The quality of the prep was adequate. In the ascending colon, there was a large but nonobstructing mass lesion. It was friable, fungating, and infiltrative, involves probably a quarter of the circumference of the colon in that area. It was likely malignant. It was certainly not resectable endoscopically. It was nonobstructing. Multiple biopsies were obtained for histology. We then injected 5 mL of tattoo ink submucosally proximal to the lesion and just distal to the lesion. The remainder of the colonic mucosa appeared normal. There was a tiny 1 to 2 mm rectal polyp, which was completely removed with cold snare and retrieved for pathology. Retroflexion in the rectum was otherwise unremarkable. The colonoscope was completely withdrawn and the patient allowed to recover. The patient tolerated the procedure well. There were no immediate postprocedure complications. IMPRESSION: 1. Nonobstructing mass in the ascending colon, likely malignant, involving about one-quarter of the circumference of the colon. Biopsied. Tattooed submucosally proximal and just distal to the lesion. 2. Tiny rectal polyp, completely removed with cold snare and retrieved for pathology. 3. Otherwise, unremarkable colonoscopy to the cecum. RECOMMENDATIONS: 1. Follow up pathology. 2. Refer to surgeon. 3. CT of the abdomen and pelvis for staging purposes. 4. The patient will need repeat colonoscopy in 1-year interval following surgical resection. 5. If malignancy is confirmed on pathology, refer to Oncology as well. Job ID: [id number]
== END 2020-07-06 12:45 | disposition home or self-care (01) ==
LOC: SDC 10:05
PROVIDERS: ATTEND Internal Medicine Gastroenterology
PROC: 0DBK8ZX Excision of Ascending Colon, Via Natural or Artificial Opening Endoscopic, Diagnostic (ICD-10-PCS; principal; 2020-07-06)
PROC: 0DBK8ZX Excision of Ascending Colon, Via Natural or Artificial Opening Endoscopic, Diagnostic (ICD-10-PCS; 2020-07-06)
DX: Z12.11 Encounter for screening for malignant neoplasm of colon (principal); C18.2 Malignant neoplasm of ascending colon; D12.8 Benign neoplasm of rectum; Z80.0 Family history of malignant neoplasm of digestive organs
CPT/HCPCS: 88305; 88361; 88374; J2250; J2704

== ENCOUNTER 2020-12-21 11:44 | Outpatient (CLI) | payer MEDICARE, MEDICAID ==
[2020-07-03 23:20] LABS: SARS-CoV-2 PCR by NAA Not Detected (NotDetected)
[2020-12-21 13:45] LABS: #Eosinphils 0.2 10x3/uL (0.0-0.5); #Monocytes 0.8 10x3/uL (0.0-1.1); #Neutrophils 9.1 10x3/uL (1.5-8.4); %Basophils 0.3 % (0.0-2.0); %Eosinophils 1.5 % (0.0-6.0); %Lymphocytes 11.3 % (18.0-47.0); %Neutrophils 79.6 % (40.0-75.0); Hemoglobin 12.5 g/dL (13.5-17.5); Mean Corpuscular HGB CONC 30.3 g/dL (32.0-36.0); Mean Corpuscular Hemoglobin 29.2 pg (27.0-33.0); Mean Corpuscular Volume 96.3 fl (81.2-95.1); Mean Platelet Volume 8.9 fl (7.4-10.4); Platelet Count 260 10x3/uL (150-450); RBC Distribution Width 13.5 % (11.5-14.5); Red Blood Cell (RBC) Count 4.28 10x6/uL (4.32-5.72); White Blood Cell (WBC) Count 11.4 10x3/uL (3.5-10.5)
[2020-12-21 14:51] LABS: Anion Gap 12 mmol/L (10-20); BUN (Urea Nitrogen) 27 mg/dL (8.4-25.7); Calc. Creatinine Clearance 0 mL/min (70-130); Carbon Dioxide 33 mmol/L (22-29); Chloride 97 mmol/L (98-107); Glucose 102 mg/dL (70-105); Potassium 4.9 mmol/L (3.5-5.1); Sodium 137 mmol/L (136-145)
[2020-12-22 12:13] LABS: SARS-CoV-2 PCR by NAA Not Detected (NotDetected)
== END 2020-12-21 11:45 | disposition home or self-care (01) ==
LOC: LABBT 11:44
PROVIDERS: ATTEND Surgery
DX: Z01.812 Encounter for preprocedural laboratory examination (principal); R76.8 Other specified abnormal immunological findings in serum; Z80.0 Family history of malignant neoplasm of digestive organs; Z20.822 Contact with and (suspected) exposure to COVID-19
CPT/HCPCS: U0003; U0005; 80048; 85025

== ENCOUNTER 2021-02-04 13:21 | Emergency (ER) | payer MEDICARE, MEDICAID ==
[2021-02-04] MEDS ORDERED: Ketorolac Tromethamine 30 MG/ML VIAL ONE (13:50)
[2021-02-04] MEDS ORDERED: Morphine 4 MG/ML VIAL ONE (13:50)
[2021-02-04 13:53] LABS: Bacteria/HPF None Seen HPF (None Seen); Bilirubin Negative (Negative); Blood, Urine 2+ (Negative); Clarity Clear (Clear); Glucose, Urine (Dipstick) Normal (Negative); Ketone, Urine Negative (Negative); Leukocyte Negative Leu/uL (Negative); Nitrite Negative (Negative); Protein, Urine (Dipstick) Negative (Neg-Trace); Specific Gravity, Urine 1.014 (1.002-1.036); Squamous Epithelial 0-3 HPF (0-3); Urobilinogen Normal mg/dL (Less than 2); WBC/HPF 0-3 HPF (0-3); pH, Urine 6.5 (5.0-9.0)
== END 2021-02-04 15:20 | disposition home or self-care (01) ==
LOC: ERS 13:21
DX: S80.12XA Contusion of left lower leg, initial encounter (principal); I10 Essential (primary) hypertension; D64.9 Anemia, unspecified; J44.9 Chronic obstructive pulmonary disease, unspecified; G47.30 Sleep apnea, unspecified; Z87.891 Personal history of nicotine dependence; W22.03XA Walked into furniture, initial encounter
CPT/HCPCS: 81003; 81015; 96374; 96375; J1885; J2270

== ENCOUNTER 2021-07-07 14:05 | Outpatient (CLI) | payer MEDICARE, MEDICAID ==
[2021-07-08 11:15] LABS: SARS-CoV-2 PCR by NAA Not Detected (NotDetected)
== END 2021-07-07 14:06 | disposition home or self-care (01) ==
LOC: LABBT 14:05
PROVIDERS: ATTEND Internal Medicine Gastroenterology
DX: Z01.812 Encounter for preprocedural laboratory examination (principal); C18.2 Malignant neoplasm of ascending colon; Z20.822 Contact with and (suspected) exposure to COVID-19
CPT/HCPCS: U0003; U0005

== ENCOUNTER 2021-07-12 08:59 | Day surgery (SDC) | payer MEDICARE, MEDICAID ==
[2021-07-07 11:24] VITALS: BMI 67.8
[2021-07-12] MEDS ORDERED: PROPOFOL 200 MG/20 ML VIAL ONE (10:49)
[2021-07-12] MEDS ORDERED: Lidocaine 1% PF 5 ML VIAL ONE (10:49)
== END 2021-07-12 12:30 | disposition home or self-care (01) ==
LOC: SDC 08:59
PROVIDERS: ATTEND Internal Medicine Gastroenterology
PROC: 0DBM8ZX Excision of Descending Colon, Via Natural or Artificial Opening Endoscopic, Diagnostic (ICD-10-PCS; principal; 2021-07-12)
DX: Z12.11 Encounter for screening for malignant neoplasm of colon (principal); D12.4 Benign neoplasm of descending colon; M19.90 Unspecified osteoarthritis, unspecified site; I10 Essential (primary) hypertension; G47.30 Sleep apnea, unspecified; E66.01 Morbid (severe) obesity due to excess calories; Z68.44 Body mass index [BMI] 60.0-69.9, adult; Z85.038 Personal history of other malignant neoplasm of large intestine; Z79.899 Other long term (current) drug therapy
CPT/HCPCS: 88305; J2704

== ENCOUNTER 2022-12-21 10:00 | Day surgery (SDC) | payer OTHER, MEDICAID ==
[2022-12-20 11:09] VITALS: BMI 62.4
[2022-12-21] MEDS ORDERED: Lidocaine 1% PF 5 ML VIAL ONE (12:00)
[2022-12-21] MEDS ORDERED: PROPOFOL 200 MG/20 ML VIAL ONE (12:00)
== END 2022-12-21 13:15 | disposition home or self-care (01) ==
LOC: SDC 10:00
PROVIDERS: ATTEND Internal Medicine Gastroenterology
PROC: 0DBL8ZZ Excision of Transverse Colon, Via Natural or Artificial Opening Endoscopic (ICD-10-PCS; principal; 2022-12-21)
DX: K63.5 Polyp of colon (principal); E66.01 Morbid (severe) obesity due to excess calories; L81.8 Other specified disorders of pigmentation; J44.9 Chronic obstructive pulmonary disease, unspecified; I10 Essential (primary) hypertension; M19.90 Unspecified osteoarthritis, unspecified site; Z85.038 Personal history of other malignant neoplasm of large intestine; Z86.010 Personal history of colon polyps; Z68.41 Body mass index [BMI] 40.0-44.9, adult; Z79.891 Long term (current) use of opiate analgesic; Z79.899 Other long term (current) drug therapy
CPT/HCPCS: 88305; J2704